=== PATIENT | male | born 1970 | race Caucasian/White ===

== ENCOUNTER 2017-06-18 00:22 | Outpatient (CLI) | payer MEDICARE, MEDICAID ==
[2017-06-18] MEDS: LACTATED RINGERS 1,000 ML IV ONE (19:09)
== END 2017-06-18 00:23 | disposition critical access hospital (66) ==
LOC: EMS 00:22
PROVIDERS: ATTEND Surgery
DX: K92.1 Melena (principal); R42 Dizziness and giddiness; R11.2 Nausea with vomiting, unspecified; R55 Syncope and collapse
CPT/HCPCS: A0425; A0427; J7120

== ENCOUNTER 2017-06-18 01:00 | Inpatient (IN) | payer MEDICARE, MEDICAID ==
[2017-06-18] MEDS ORDERED: PANTOPRAZOLE 40 MG VIAL IVP STA (01:09)
[2017-06-18] MEDS ORDERED: SODIUM CHLORIDE 0.9% 1,000 ML IV ONE (01:09)
[2017-06-18] MEDS ORDERED: ONDANSETRON 4 MG/2 ML VIAL IVP STA (01:09)
[2017-06-18] MEDS ORDERED: PANTOPRAZOLE 40 MG VIAL ONE (01:19)
[2017-06-18] MEDS ORDERED: ONDANSETRON 4 MG/2 ML VIAL ONE (01:19)
[2017-06-18 01:34] LABS: BASOPHILS # (AUTO) 0.1 10^3/uL (0.0-0.1); BASOPHILS % (AUTO) 0.7 %; EOSINOPHILS # (AUTO) 0.1 10^3/uL (0.0-0.7); EOSINOPHILS % (AUTO) 0.4 %; HCT - HEMATOCRIT 30.7 % (42.0-52.0); HGB - HEMOGLOBIN 10.3 g/dL (14.0-18.0); LYMPHOCYTES # (AUTO) 1.8 10^3/uL (1.5-3.5); LYMPHOCYTES % (AUTO) 11.5 %; MEAN CORPUSCULAR HEMOGLOBIN 30.4 pg (27.0-31.0); MEAN CORPUSCULAR HGB CONC 33.7 g/dL (32.0-36.0); MEAN CORPUSCULAR VOLUME 90.4 fL (80.0-94.0); MEAN PLATELET VOLUME 9.6 fL (7.4-11.4); MONOCYTES # (AUTO) 0.4 10^3/uL (0.0-1.0); MONOCYTES % (AUTO) 2.5 %; NEUTROPHILS # (AUTO) 13.2 10^3/uL (1.5-6.6); NEUTROPHILS % (AUTO) 84.9 %; RED CELL DISTRIBUTION WIDTH 12.8 % (12.0-15.0); UNCORRECTED WHITE BLOOD COUNT 15.6 x10^3/uL; WHITE BLOOD COUNT 15.6 x10^3/uL (4.8-10.8)
[2017-06-18 01:41] LABS: INR 1.2 (0.8-1.2); PT - PROTHROMBIN TIME 13.4 secs (9.9-12.6)
[2017-06-18 01:43] LABS: ALBUMIN/GLOBULIN RATIO 1.5 (1.0-2.2); BILIRUBIN,TOTAL 0.4 mg/dL (0.2-1.0); BUN - BLOOD UREA NITROGEN 26 mg/dL (6-20); CALCIUM 7.8 mg/dL (8.5-10.3); CARBON DIOXIDE - CO2 25 mmol/L (21-32); CHLORIDE 102 mmol/L (101-111); CREATININE 1.1 mg/dL (0.6-1.2); GFR - MDRD 72 (>89); GLUCOSE 180 mg/dL (70-100); LIPASE 32 U/L (22-51); POTASSIUM 4.2 mmol/L (3.5-5.0); SODIUM 135 mmol/L (135-145); TOTAL PROTEIN 5.9 g/dL (6.7-8.2)
[2017-06-18 01:49] LABS: PARTIAL THROMBOPLASTIN TIME 20.9 secs (24.9-33.3)
--- NOTE | 2017-06-18 01:57 | ED Physician Documentation ---
PD HPI GI BLEED - Stated complaint Stated Complaint: GI BLEED - Chief complaint Chief Complaint: Abd Pain - History obtained from History obtained from: Patient - History of Present Illness Timing - onset: Today Timing - details: Abrupt onset, Still present Associated symptoms: Vomiting, BRBPR, Maroon stool, Diarrhea. No: Coffee ground emesis, Hematemesis Worsened by: Eating, Position, Palpation Similar symptoms before: Has not had sx before Recently seen: Not recently seen - Additional information Additional information: Patient is a 46 year old male who lives at home with his mother who is on disability for chronic pancreatitis who is presenting to the emergency department for GI bleeding. According to patient and ems patient had multiple episodes of GI bleeding earlier today. patient states that he passed out twice. patient denies having these symptoms before. patient had no blood in his vomit and denies any alcohol abuse. Review of Systems Constitutional: reports: Chills. denies: Fever Eyes: denies: Loss of vision, Decreased vision Ears: denies: Ear pain, Drainage/discharge Nose: denies: Epistaxis Throat: reports: Reviewed and negative Cardiac: denies: Chest pain / pressure, Palpitations Respiratory: denies: Cough, Wheezing GI: reports: Abdominal Pain, Nausea, Vomiting, Diarrhea, Bloody / black stool. denies: Hematemesis : denies: Dysuria, Frequency, Hematuria Skin: denies: Rash, Lesions Musculoskeletal: denies: Neck pain, Back pain, Extremity pain, Joint swelling Neurologic: reports: Syncope. denies: Confused, Altered mental status Psychiatric: denies: Depressed, Suicidal Immunocompromised: denies: Immunocompromised PD PAST MEDICAL HISTORY - Past Medical History Past Medical History: Yes Cardiovascular: Hypertension Respiratory: None Neuro: None Endocrine/Autoimmune: None GI: Pancreatitis : None HEENT: None Psych: Depression, Anxiety Musculoskeletal: Chronic back pain Derm: None - Past Surgical History Past Surgical History: Yes General: Other - Present Medications Home Medications: Ambulatory Orders Medication Instructions Recorded Confirmed Amitriptyline [Elavil] 25 mg PO HS 06/18/17 06/18/17 Atenolol 50 mg PO DAILY 06/18/17 06/18/17 - Allergies Allergies/Adverse Reactions: Allergies Allergy/AdvReac Type Severity Reaction Status Date / Time diphenhydramine Allergy Rash Verified 12/14/15 07:25 - Social History Does the pt smoke?: No Smoking Status: Never smoker Does the pt drink ETOH?: No Does the pt have substance abuse?: No - Immunizations Immunizations are current?: Yes - POLST Patient has POLST: No PD ED PE NORMAL - Vitals Vital signs reviewed: Yes - General General: Alert and oriented X 3 - HEENT HEENT: Atraumatic, PERRL, Moist mucous membranes - Neck Neck: Supple, no meningeal sign - Cardiac Cardiac: RRR, No murmur - Respiratory Respiratory: No respiratory distress - Abdomen Abdomen: Soft - Extremities Extremities: No deformity, No tenderness to palpate - Neuro Neuro: Alert and oriented X 3, No motor deficit, No sensory deficit, Normal speech - Psych Psych: Normal mood, Normal affect PD ED PE EXPANDED - General General: Alert, Disheveled, poorly kept, Other (pale, ill appearing) - Eyes Eyes: Other (pale conjunctiva) - Abdomen Abdomen: Tender to palpation, Epigastric, Surgical scars - Derm Derm: Pale, Other (clammy) Results - Vitals Vitals: Vital Signs - 24 hr 06/18/17 06/18/17 06/18/17 01:06 01:24 01:44 Temperature 36.0 C L Heart Rate 110 H 100 102 H Respiratory 20 19 24 Rate Blood Pressure 110/54 L 104/85 H 102/74 O2 Saturation 99 96 95 06/18/17 06/18/17 06/18/17 01:58 02:20 02:30 Temperature Heart Rate 97 90 87 Respiratory 19 19 19 Rate Blood Pressure 109/89 H 101/68 O2 Saturation 100 100 100 Oxygen O2 Source Nasal cannula - Labs Labs: Laboratory Tests 06/18/17 06/18/17 06/18/17 01:23 01:23 01:23 WBC 15.6 H RBC 3.40 L Hgb 10.3 L Hct 30.7 L MCV 90.4 MCH 30.4 MCHC 33.7 RDW 12.8 Plt Count 281 MPV 9.6 Neut # 13.2 H Lymph # 1.8 [place] # 0.4 Eos # 0.1 Baso # 0.1 Absolute Nucleated RBC 0.00 Nucleated RBC % 0.0 PT 13.4 H INR 1.2 APTT 20.9 L Sodium 135 Potassium 4.2 Chloride 102 Carbon Dioxide 25 Anion Gap 8.0 BUN 26 H Creatinine 1.1 Estimated GFR (MDRD) 72 L Glucose 180 H Calcium 7.8 L Total Bilirubin 0.4 AST 15 ALT 15 Alkaline Phosphatase 32 L Troponin I Total Protein 5.9 L Albumin 3.5 Globulin 2.4 Albumin/Globulin Ratio 1.5 Lipase 32 Ethyl Alcohol < 5.0 Blood Type Blood Type Recheck Antibody Screen Crossmatch IS Only 06/18/17 06/18/17 06/18/17 01:23 01:23 01:23 WBC RBC Hgb Hct MCV MCH MCHC RDW Plt Count MPV Neut # Lymph # [place] # Eos # Baso # Absolute Nucleated RBC Nucleated RBC % PT INR APTT Sodium Potassium Chloride Carbon Dioxide Anion Gap BUN Creatinine Estimated GFR (MDRD) Glucose Calcium Total Bilirubin AST ALT Alkaline Phosphatase Troponin I < 0.04 Total Protein Albumin Globulin Albumin/Globulin Ratio Lipase Ethyl Alcohol Blood Type A POSITIVE Cancelled Blood Type Recheck Antibody Screen NEGATIVE Cancelled Crossmatch IS Only See Detail 06/18/17 01:53 WBC RBC Hgb Hct MCV MCH MCHC RDW Plt Count MPV Neut # Lymph # [place] # Eos # Baso # Absolute Nucleated RBC Nucleated RBC % PT INR APTT Sodium Potassium Chloride Carbon Dioxide Anion Gap BUN Creatinine Estimated GFR (MDRD) Glucose Calcium Total Bilirubin AST ALT Alkaline Phosphatase Troponin I Total Protein Albumin Globulin Albumin/Globulin Ratio Lipase Ethyl Alcohol Blood Type Blood Type Recheck A POSITIVE Antibody Screen Crossmatch IS Only - Rads (name of study) chest x-ray Radiology: Final report received (no acute abnormality) PD MEDICAL DECISION MAKING - ED course Complexity details: reviewed old records, reviewed results, re-evaluated patient , considered differential, d/w patient, d/w design center consultant ED course: Patient was seen and examined at bedside immediately. IV access was gained and labs were drawn. Fluids were started. Patient was started on protonix. Patient's hemoglobin was 10, but his baseline was 15. Patient was symptomatic and blood products were ordered. Surgeon insulation cutter and former, Dr. elizalde was contacted and he agreed to consult on the patient. Hospitalist was contacted and the case was discussed with her. It was decided that patient would be admitted for further evaluation and possible colonoscopy. Departure - Departure Disposition: [facility] DC/Xfer Clinical Impression: Lower GI bleed Condition: Critical
[2017-06-18] MEDS ORDERED: fentaNYL 100 MCG/2 ML VIAL IVP STA (02:04)
[2017-06-18] MEDS ORDERED: fentaNYL 100 MCG/2 ML VIAL ONE (02:12)
--- NOTE | 2017-06-18 02:34 | XRAY Preliminary Report ---
Exam: XR Chest 1 View IMPRESSION: Normal single view chest. [facility] SITE ID: [id number]
--- NOTE | 2017-06-18 02:37 | XRAY Report ---
EXAM: CHEST RADIOGRAPHY EXAM DATE: 06/18/2017 02:14 AM. CLINICAL HISTORY: Syncope twice tonight, bloody diarrhea, abdominal pain. COMPARISON: None. TECHNIQUE: 1 view. FINDINGS: Lungs/Pleura: No focal opacities evident. No pleural effusion. No pneumothorax. Mediastinum: Within exam limitations, the cardiomediastinal contour is normal. Other: No free intraperitoneal gas. IMPRESSION: Normal single view chest. [facility] Referring Provider Line: [phone] SITE ID: [id number]
[2017-06-18] MEDS ORDERED: MORPHINE 2 MG/ML SYRINGE IVP PRN (04:08)
[2017-06-18] MEDS: SODIUM CHLORIDE FLUSH 0.9% 10 ML SYRINGE IVP PRN ×2 (04:45→19:56)
[2017-06-18] MEDS: SODIUM CHLORIDE 0.9% 1,000 ML IV SCH ×3 (04:45→21:54)
[2017-06-18] MEDS: ONDANSETRON 4 MG/2 ML VIAL IVP SCH ×5 (04:53→21:33)
[2017-06-18] MEDS: SODIUM CHLORIDE FLUSH 0.9% 10 ML SYRINGE IVP SCH ×3 (05:38→21:33)
[2017-06-18 05:50] LABS: BASOPHILS % (AUTO) 0.4 %; EOSINOPHILS % (AUTO) 0.2 %; HCT - HEMATOCRIT 32.2 % (42.0-52.0); LYMPHOCYTES # (AUTO) 2.1 10^3/uL (1.5-3.5); LYMPHOCYTES % (AUTO) 15.4 %; MEAN CORPUSCULAR HGB CONC 34.3 g/dL (32.0-36.0); MEAN CORPUSCULAR VOLUME 90.5 fL (80.0-94.0); MEAN PLATELET VOLUME 9.8 fL (7.4-11.4); MONOCYTES # (AUTO) 0.5 10^3/uL (0.0-1.0); MONOCYTES % (AUTO) 3.6 %; NEUTROPHILS # (AUTO) 10.7 10^3/uL (1.5-6.6); NEUTROPHILS % (AUTO) 80.4 %; RED BLOOD COUNT 3.55 10^6/uL (4.70-6.10); RED CELL DISTRIBUTION WIDTH 12.8 % (12.0-15.0); UNCORRECTED WHITE BLOOD COUNT 13.3 x10^3/uL; WHITE BLOOD COUNT 13.3 x10^3/uL (4.8-10.8)
[2017-06-18 05:56] LABS: INR 1.2 (0.8-1.2); PT - PROTHROMBIN TIME 13.5 secs (9.9-12.6)
[2017-06-18 06:02] LABS: ALBUMIN/GLOBULIN RATIO 1.4 (1.0-2.2); BILIRUBIN,TOTAL 1.3 mg/dL (0.2-1.0); CALCIUM 7.7 mg/dL (8.5-10.3); CREATININE 0.9 mg/dL (0.6-1.2); POTASSIUM 4.4 mmol/L (3.5-5.0); TOTAL PROTEIN 5.5 g/dL (6.7-8.2)
[2017-06-18 06:03] LABS: PARTIAL THROMBOPLASTIN TIME 29.4 secs (24.9-33.3)
[2017-06-18 06:33] LABS: CALCIUM, IONIZED 1.04 mmol/L (1.15-1.33); VBG PH 7.407 (7.31-7.41)
--- NOTE | 2017-06-18 06:35 | HISTORY & PHYSICAL EXAMINATION ---
DATE OF ADMISSION: 06/18/2017 TIME: 5 a.m. CODE STATUS: FULL CODE. PRIMARY CARE PROVIDER: Gavino Raymundo. EXAM LIMITATIONS: None. SOURCE OF INFORMATION: The patient. CHIEF COMPLAINT: Abdominal pain with bloody diarrhea. DOES THE PATIENT HAVE ADVANCED DIRECTIVES: No. HISTORY OF PRESENT ILLNESS: The patient, a 46-year-old white male, began becoming weak at 6:30 p.m. He developed right lower quadrant pain with bloody diarrhea. He fainted twice before coming into the ER. DRUG ALLERGIES: BENADRYL, FOR WHICH HE GETS A RASH. HOME MEDICATIONS 1. Amitriptyline 25 mg 1 tab p.o. at bedtime. 2. Atenolol 50 mg 1 tab p.o. every day. 3. Vicodin. PAST MEDICAL HISTORY: Chronic pancreatitis, depression/anxiety, hypertension, hyperlipidemia. He has a history of abdominal trauma at the age of 9, falling from a roof and landing on rebar resulting in trauma to multiple organs. He had an open abdominal exploratory operation after the trauma. He also has an artificial right tear duct. FAMILY HISTORY: Mother, breast cancer. Paternal grandfather, colon cancer. Father, arrhythmia and coronary artery disease. SOCIAL HISTORY: He is single. He has no children. He is disabled. He smoked 1 pack per day for 20 years and quit 5 years ago. He has abused alcohol in the past and quit 3 years ago and he uses marijuana. He lives with his father and has 3 brothers. REVIEW OF SYSTEMS RESPIRATORY: No productive cough, no shortness of breath. HEART: No palpitations. No chest pain. ABDOMEN: Right lower quadrant pain and bloody diarrhea. URINARY SYSTEM: No frequency, no burning urine. HEAD: No headaches. EYES: No blurred vision. EARS: No ear pain. NOSE: No runny nose. THROAT: No redness or pain. MUSCULOSKELETAL: Proximal muscle weakness. JOINTS: No joint pain. NEUROLOGIC: No aphasias, no limb weakness. WEAKNESS AND FATIGUE: Yes. FEVER: No. PHYSICAL EXAMINATION VITAL SIGNS: Temperature of 36 degrees, pulse 110, a respiratory rate of 20, blood pressure of 110/54, and O2 saturation of 100% on 2 liters nasal cannula. GENERAL: Pallor, alert, and cooperative. HEENT: Head is atraumatic, normocephalic. Eyes are PERRLA, EOMI. NECK: Supple. No JVD, no bruits, no thyroid enlargement. No adenopathy. HEART: Tachycardia. LUNGS: Clear to auscultation. ABDOMEN: Positive for bowel sounds, soft. No rebound, no guarding. Right lower quadrant pain. EXTREMITIES: Warm. No edema, +2 pedal pulses. He has 5/5 muscle strength in upper and lower extremities. NEUROLOGIC: He is oriented x3. Follows commands. Cranial nerves 2-12 are intact. LABORATORY DATA: Sodium is 135, potassium is 4.2, chloride 102, bicarbonate is 25, BUN is 26, creatinine is 1.1, glucose is 180. White blood cells are 15.6, hemoglobin is 10.3, hematocrit 30.7, platelets are 281,000. Lipase is 32 and glomerular filtration rate is 72, calcium 7.8. AST is 15, ALT is 15, alkaline phosphatase is 32. ASSESSMENT AND PLAN: Gastrointestinal bleeding. He is in the ICU on telemetry. He has been transfused 1 unit of packed red blood cells in the ER. He will be getting hemograms. He has 2 units of packed red blood cells on hold. He will have Dr. Werner Silva consult. He will be on telemetry. He is getting IV 0.9 normal saline at 100 mL per hour and he is on IV Protonix at 40 mg every day. For DVT prophylaxis, he has SCDs. For his suspected infection, he will be on IV ceftriaxone. His anticipated length of stay is 4 days. His anxiety and depression will be treated with Elavil. His hypertension will be treated with atenolol and his chronic pancreatic pain and abdominal pain will be treated with IV morphine sulfate. JOB #: [id number] EXT JOB #:[id number] JOBY
[2017-06-18] MEDS ORDERED: MORPHINE 2 MG/ML SYRINGE IVP ONE (06:40)
[2017-06-18] MEDS: PANTOPRAZOLE 40 MG VIAL IVP SCH (06:58)
[2017-06-18 07:07] LABS: MAGNESIUM 1.8 mg/dL (1.7-2.8); PHOSPHORUS 3.3 mg/dL (2.5-4.6)
[2017-06-18] MEDS: ATENOLOL 25 MG TABLET PO SCH ×2 (09:01→09:04)
[2017-06-18] MEDS: cefTRIAXone 1 GM in SODIUM CHLORIDE 0.9% MINIBAG 100 ML IV SCH (09:02)
[2017-06-18] MEDS ORDERED: PEG 3350/NA SULF,BICARB,CL/KCL 4,000 ML BOTTLE PO ONE (09:46)
[2017-06-18] MEDS ORDERED: PEG 3350/NA SULF,BICARB,CL/KCL 4,000 ML BOTTLE PO SCH (10:00)
[2017-06-18] MEDS: MORPHINE 2 MG/ML SYRINGE IVP PRN ×5 (10:26→22:50)
[2017-06-18 10:29] LABS: BASOPHILS # (AUTO) 0.1 10^3/uL (0.0-0.1); BASOPHILS % (AUTO) 0.6 %; EOSINOPHILS # (AUTO) 0.1 10^3/uL (0.0-0.7); EOSINOPHILS % (AUTO) 0.4 %; HCT - HEMATOCRIT 28.5 % (42.0-52.0); HGB - HEMOGLOBIN 9.7 g/dL (14.0-18.0); MEAN CORPUSCULAR HEMOGLOBIN 30.4 pg (27.0-31.0); MEAN CORPUSCULAR HGB CONC 34.1 g/dL (32.0-36.0); MEAN CORPUSCULAR VOLUME 89.2 fL (80.0-94.0); MEAN PLATELET VOLUME 9.3 fL (7.4-11.4); MONOCYTES # (AUTO) 0.6 10^3/uL (0.0-1.0); NEUTROPHILS # (AUTO) 8.8 10^3/uL (1.5-6.6); RED BLOOD COUNT 3.19 10^6/uL (4.70-6.10); RED CELL DISTRIBUTION WIDTH 12.4 % (12.0-15.0); UNCORRECTED WHITE BLOOD COUNT 12.5 x10^3/uL; WHITE BLOOD COUNT 12.5 x10^3/uL (4.8-10.8)
[2017-06-18] MEDS: CALCIUM CITRATE 250 MG TABLET PO SCH ×3 (12:55→21:33)
[2017-06-18 14:27] LABS: HCT - HEMATOCRIT 26.1 % (42.0-52.0); HGB - HEMOGLOBIN 8.9 g/dL (14.0-18.0); MEAN CORPUSCULAR HEMOGLOBIN 30.4 pg (27.0-31.0); MEAN CORPUSCULAR HGB CONC 34.1 g/dL (32.0-36.0); MEAN CORPUSCULAR VOLUME 89.3 fL (80.0-94.0); MEAN PLATELET VOLUME 9.2 fL (7.4-11.4); RED BLOOD COUNT 2.93 10^6/uL (4.70-6.10); RED CELL DISTRIBUTION WIDTH 12.7 % (12.0-15.0); WHITE BLOOD COUNT 11.9 x10^3/uL (4.8-10.8)
[2017-06-18 16:36] LABS: BASOPHILS # (AUTO) 0.1 10^3/uL (0.0-0.1); BASOPHILS % (AUTO) 0.6 %; EOSINOPHILS # (AUTO) 0.2 10^3/uL (0.0-0.7); EOSINOPHILS % (AUTO) 1.3 %; HCT - HEMATOCRIT 26.8 % (42.0-52.0); HGB - HEMOGLOBIN 9.2 g/dL (14.0-18.0); LYMPHOCYTES # (AUTO) 3.1 10^3/uL (1.5-3.5); LYMPHOCYTES % (AUTO) 26.3 %; MEAN CORPUSCULAR HEMOGLOBIN 31.1 pg (27.0-31.0); MEAN CORPUSCULAR HGB CONC 34.1 g/dL (32.0-36.0); MEAN PLATELET VOLUME 9.6 fL (7.4-11.4); MONOCYTES # (AUTO) 0.6 10^3/uL (0.0-1.0); MONOCYTES % (AUTO) 5.3 %; NEUTROPHILS # (AUTO) 7.9 10^3/uL (1.5-6.6); NEUTROPHILS % (AUTO) 66.5 %; RED BLOOD COUNT 2.95 10^6/uL (4.70-6.10); UNCORRECTED WHITE BLOOD COUNT 11.9 x10^3/uL; WHITE BLOOD COUNT 11.9 x10^3/uL (4.8-10.8)
[2017-06-18] MEDS ORDERED: PROPOFOL 200 MG/20 ML VIAL IVP ONE (19:30)
--- NOTE | 2017-06-18 19:59 | PROVIDER PROGRESS NOTE ---
Subjective - Prog Note Date Prog Note Date: 06/18/17 Prog Note Time: 19:57 - Subjective Subjective: he has 2 bowel movements that were dark but by 3rd nml brown color. dropped hgb but stayed stable. was orthostatic today but with IVF BP normalized. colonscopy is compeltely clear for source of bleeding. He may need an EGD but the patient decline one for today. He has N/V and wants to wait. Current Medications - Current Medications Current Medications: Active Medications Amitriptyline HCl (Elavil) 25 mg PO HS [facility] Atenolol (Tenormin) 50 mg PO DAILY [facility] Last Admin: 06/18/17 09:04 Dose: Not Given Calcium Citrate () 500 mg PO QID [facility] PRN Reason: Protocol Stop: 06/19/17 09:01 Last Admin: 06/18/17 15:48 Dose: 500 mg Sodium Chloride (Normal Saline 0.9%) 1,000 mls @ 100 mls/hr IV .Q10H [facility] Last Admin: 06/18/17 15:47 Dose: 100 mls/hr Ceftriaxone Sodium 1 gm/ (Sodium Chloride) 100 mls @ 200 mls/hr IV DAILY [facility] Last Infusion: 06/18/17 10:29 Dose: Infused Morphine Sulfate (Morphine) 2 mg IVP Q1HR PRN PRN Reason: Abdominal Pain Last Admin: 06/18/17 19:56 Dose: 2 mg Ondansetron HCl (Zofran Inj) 4 mg IVP Q4H [facility] Last Admin: 06/18/17 15:48 Dose: 4 mg Pantoprazole Sodium (Protonix) 40 mg IVP QDAC [facility] Last Admin: 06/18/17 06:58 Dose: 40 mg Sodium Chloride (Normal Saline Flush 0.9%) 10 ml IVP Q8HR [facility] Last Admin: 06/18/17 12:55 Dose: 10 ml Sodium Chloride (Normal Saline Flush 0.9%) 10 ml IVP PRN PRN PRN Reason: NEEDED PER PROVIDER ORDERS Last Admin: 06/18/17 19:56 Dose: 10 ml Amitriptyline [Elavil] 50 mg PO HS 06/18/17 Atenolol 50 mg PO DAILY 06/18/17 Hydrocodone/Acetaminophen [Hydrocodon-Acetaminoph 7.5-325] 1 tab PO Q6H PRN 06/25 Objective - Vital Signs/Intake & Output Reviewed Vital Signs: Yes Vital Signs: Vital Signs x48h Temp Pulse Resp BP BP Pulse Ox 06/18/17 19:51 36.9 C 81 13 120/83 H 99 06/18/17 18:40 85 14 130/80 100 06/18/17 17:53 82 12 124/80 100 06/18/17 17:07 86 13 129/96 H 100 06/18/17 17:02 125/78 06/18/17 16:00 77 18 132/89 H 100 06/18/17 15:18 76 17 132/89 H 100 06/18/17 14:00 90 20 108/84 H 96 06/18/17 13:00 36.6 C 90 17 115/81 H 99 06/18/17 12:00 107 H 16 133/88 H 100 Intake & Output: Intake & Output 06/15/17 06/16/17 06/17/17 06/18/17 23:59 23:59 23:59 23:59 Intake Total 6670 Output Total 3250 Balance 3420 - Objective General Appearance: positive: No acute distress, Alert Eyes Bilateral: positive: PERRL ENT: positive: Pharynx nml Neck: positive: No JVD. negative: Stiff neck Respiratory: positive: Chest non-tender. negative: Wheezes, Rales, Rhonchi Cardiovascular: positive: Regular rate & rhythm, Other (RN documents impressive orthostatic hypotension and he has near syncope when he stood this am. Resolved by late afternoon.). negative: Systolic murmur, Gallop/S4, Friction rub Abdomen: positive: Nml bowel sounds, Tenderness (mild). negative: Guarding, Rebound Rectal: positive: Black stool Skin: positive: Warm, Dry, Pallor Extremities: positive: Full ROM, No pedal edema Neurologic/Psychiatric: positive: Oriented x3, CN's nml (2-12), Motor nml - Lab Results Fish Bones: 06/18/17 16:20 06/18/17 05:26 Other Labs: Lab Results x24hrs 06/18/17 06/18/17 06/18/17 Range/Units 16:20 14:20 10:23 WBC 11.9 H 11.9 H 12.5 H (4.8-10.8) x10^3/uL RBC 2.95 L 2.93 L 3.19 L (4.70-6.10) 10^6/uL Hgb 9.2 L 8.9 L 9.7 L (14.0-18.0) g/dL Hct 26.8 L 26.1 L 28.5 L (42.0-52.0) % MCV 91.0 89.3 89.2 (80.0-94.0) fL MCH 31.1 H 30.4 30.4 (27.0-31.0) pg MCHC 34.1 34.1 34.1 (32.0-36.0) g/dL RDW 13.0 12.7 12.4 (12.0-15.0) % Plt Count 187 190 200 (130-450) 10^3/uL MPV 9.6 9.2 9.3 (7.4-11.4) fL Neut # 7.9 H 8.8 H (1.5-6.6) 10^3/uL Lymph # 3.1 3.0 (1.5-3.5) 10^3/uL Pender # 0.6 0.6 (0.0-1.0) 10^3/uL Eos # 0.2 0.1 (0.0-0.7) 10^3/uL Baso # 0.1 0.1 (0.0-0.1) 10^3/uL Absolute Nucleated RBC 0.00 0.00 x10^3/uL Nucleated RBC % 0.0 0.0 /100WBC PT (9.9-12.6) secs INR (0.8-1.2) APTT (24.9-33.3) secs VBG pH (7.31-7.41) Ionized Calcium (1.15-1.33) mmol/L Sodium (135-145) mmol/L Potassium (3.5-5.0) mmol/L Chloride (101-111) mmol/L Carbon Dioxide (21-32) mmol/L Anion Gap (6-13) BUN (6-20) mg/dL Creatinine (0.6-1.2) mg/dL Estimated GFR (MDRD) (>89) Glucose (70-100) mg/dL Calcium (8.5-10.3) mg/dL Phosphorus (2.5-4.6) mg/dL Magnesium (1.7-2.8) mg/dL Total Bilirubin (0.2-1.0) mg/dL AST (10-42) IU/L ALT (10-60) IU/L Alkaline Phosphatase (42-121) IU/L Total Protein (6.7-8.2) g/dL Albumin (3.2-5.5) g/dL Globulin (2.1-4.2) g/dL Albumin/Globulin Ratio (1.0-2.2) 06/18/17 06/18/17 06/18/17 Range/Units 06:24 05:26 05:26 WBC 13.3 H (4.8-10.8) x10^3/uL RBC 3.55 L (4.70-6.10) 10^6/uL Hgb 11.0 L (14.0-18.0) g/dL Hct 32.2 L (42.0-52.0) % MCV 90.5 (80.0-94.0) fL MCH 31.0 (27.0-31.0) pg MCHC 34.3 (32.0-36.0) g/dL RDW 12.8 (12.0-15.0) % Plt Count 221 (130-450) 10^3/uL MPV 9.8 (7.4-11.4) fL Neut # 10.7 H (1.5-6.6) 10^3/uL Lymph # 2.1 (1.5-3.5) 10^3/uL [place] # 0.5 (0.0-1.0) 10^3/uL Eos # 0.0 (0.0-0.7) 10^3/uL Baso # 0.0 (0.0-0.1) 10^3/uL Absolute Nucleated RBC 0.00 x10^3/uL Nucleated RBC % 0.0 /100WBC PT (9.9-12.6) secs INR (0.8-1.2) APTT (24.9-33.3) secs VBG pH 7.407 (7.31-7.41) Ionized Calcium 1.04 L (1.15-1.33) mmol/L Sodium (135-145) mmol/L Potassium (3.5-5.0) mmol/L Chloride (101-111) mmol/L Carbon Dioxide (21-32) mmol/L Anion Gap (6-13) BUN (6-20) mg/dL Creatinine (0.6-1.2) mg/dL Estimated GFR (MDRD) (>89) Glucose (70-100) mg/dL Calcium (8.5-10.3) mg/dL Phosphorus 3.3 (2.5-4.6) mg/dL Magnesium 1.8 (1.7-2.8) mg/dL Total Bilirubin (0.2-1.0) mg/dL AST (10-42) IU/L ALT (10-60) IU/L Alkaline Phosphatase (42-121) IU/L Total Protein (6.7-8.2) g/dL Albumin (3.2-5.5) g/dL Globulin (2.1-4.2) g/dL Albumin/Globulin Ratio (1.0-2.2) 06/18/17 06/18/17 Range/Units 05:26 05:26 WBC (4.8-10.8) x10^3/uL RBC (4.70-6.10) 10^6/uL Hgb (14.0-18.0) g/dL Hct (42.0-52.0) % MCV (80.0-94.0) fL MCH (27.0-31.0) pg MCHC (32.0-36.0) g/dL RDW (12.0-15.0) % Plt Count (130-450) 10^3/uL MPV (7.4-11.4) fL Neut # (1.5-6.6) 10^3/uL Lymph # (1.5-3.5) 10^3/uL [place] # (0.0-1.0) 10^3/uL Eos # (0.0-0.7) 10^3/uL Baso # (0.0-0.1) 10^3/uL Absolute Nucleated RBC x10^3/uL Nucleated RBC % /100WBC PT 13.5 H (9.9-12.6) secs INR 1.2 (0.8-1.2) APTT 29.4 (24.9-33.3) secs VBG pH (7.31-7.41) Ionized Calcium (1.15-1.33) mmol/L Sodium 137 (135-145) mmol/L Potassium 4.4 (3.5-5.0) mmol/L Chloride 106 (101-111) mmol/L Carbon Dioxide 24 (21-32) mmol/L Anion Gap 7.0 (6-13) BUN 22 H (6-20) mg/dL Creatinine 0.9 (0.6-1.2) mg/dL Estimated GFR (MDRD) 91 (>89) Glucose 124 H (70-100) mg/dL Calcium 7.7 L (8.5-10.3) mg/dL Phosphorus (2.5-4.6) mg/dL Magnesium (1.7-2.8) mg/dL Total Bilirubin 1.3 H (0.2-1.0) mg/dL AST 16 (10-42) IU/L ALT 14 (10-60) IU/L Alkaline Phosphatase 30 L (42-121) IU/L Total Protein 5.5 L (6.7-8.2) g/dL Albumin 3.2 (3.2-5.5) g/dL Globulin 2.3 (2.1-4.2) g/dL Albumin/Globulin Ratio 1.4 (1.0-2.2) Assessment/Plan - Problem List (1) Melena Impression: appears to be having a GI bleed and now not lower. had impressive near syncope and low BP and now better with IVF. didn't need blood transfusion. start PPI. If stable Hgb in am can go and will see Dr. Silva in clinic to get that EGD. avoid ASA or any NSAID until seen.
[2017-06-18] MEDS: AMITRIPTYLINE 25 MG TABLET PO SCH (21:33)
[2017-06-18 22:37] LABS: BASOPHILS # (AUTO) 0.1 10^3/uL (0.0-0.1); BASOPHILS % (AUTO) 1.4 %; EOSINOPHILS # (AUTO) 0.1 10^3/uL (0.0-0.7); EOSINOPHILS % (AUTO) 1.8 %; HCT - HEMATOCRIT 23.1 % (42.0-52.0); HGB - HEMOGLOBIN 7.8 g/dL (14.0-18.0); LYMPHOCYTES # (AUTO) 2.4 10^3/uL (1.5-3.5); LYMPHOCYTES % (AUTO) 29.7 %; MEAN CORPUSCULAR HEMOGLOBIN 31.1 pg (27.0-31.0); MEAN CORPUSCULAR HGB CONC 33.8 g/dL (32.0-36.0); MEAN PLATELET VOLUME 9.4 fL (7.4-11.4); MONOCYTES # (AUTO) 0.3 10^3/uL (0.0-1.0); MONOCYTES % (AUTO) 3.5 %; NEUTROPHILS % (AUTO) 63.6 %; RED BLOOD COUNT 2.51 10^6/uL (4.70-6.10); UNCORRECTED WHITE BLOOD COUNT 7.9 x10^3/uL; WHITE BLOOD COUNT 7.9 x10^3/uL (4.8-10.8)
[2017-06-19] MEDS: ONDANSETRON 4 MG/2 ML VIAL IVP SCH ×6 (01:20→20:43)
--- NOTE | 2017-06-19 01:43 | CONSULTATION NOTE ---
DATE OF CONSULTATION: 06/18/2017 00:00:00 REQUESTING PROVIDER: Dr. Callahan. DATE OF ADMISSION: 06/18/2017 I was called in consultation first by Dr. Callahan in the emergency room and then by Dr. Mccollum to e valuate this 46-year-old white male for a GI bleed. HISTORY OF PRESENT ILLNESS: The patient was evaluated in room 2303 (the Intensive Care Unit at [facility]). He is a 46-year-old white male with a history of chronic pain after having been impaled on rebar afte r he fell from a roof. To hear the patient tell it he had injuries to multiple organs in his body and ended up with a liver resection and repair to numerous other abdominal organs. Additionally, he has had chronic pancreatitis and states that he has chronic pain as a results. For this disease he stated he had bright red blood per rectum to point where he fainted twice prior to coming to the emergency department. He has been lightheaded. He has no new abdominal pain with this blood. He has no weight l oss. The patient states that there is no treatment for his abdominal pain, but I corrected and stated that there was a possibility of sympathectomy and he kind of laughed and said yes the other doctors have told him this much as well, but he has been reticent to try. I told there is nothing lost in try ing this. In fact, if it does not work for the first time I would try it again to see if it works the second time. At any rate, with abdominal pain and the bloody diarrhea he stated he had nausea and vo miting. He states the vomiting was quite a bit and never did not notice any blood in the vomitus. ALLERGIES: BENADRYL, BUT THERE IS ONLY IF IT IS TAKEN I BELIEVE IV. MEDICATIONS: 1. Amitriptyline 25 mg 1 Tab p.o. at bedtime. 2. Atenolol 50 mg tablet every day as well. 3. Vicodin every 4-6 hours as needed for pain. PAST MEDICAL AND SURGICAL HISTORY: 1. Chronic pancreatitis. 2. Depression and anxiety. 3. Hypertension. 4. Dyslipidemia. 5. Abdominal trauma with partial hepatectomy and repair to multiple abdominal organs after being impa led on rebar falling off a roof. 6. Additionally has artificial right tear duct. 7. He has chronic pain. SOCIAL HISTORY: He was a smoker, 1 pack per day for 20 years, quitting 5 years ago. He states he was alcoholic, quitting 3 years ago. He uses marijuana. He lives with his father, has 3 brothers. He is s pamella, no children. FAMILY HISTORY: Mother with breast cancer. Paternal grandfather with colon cancer. Father with arrhyt hmia and coronary artery disease. There is no family history of inflammatory bowel disease. REVIEW OF SYSTEMS: GENERAL: He denies any weight loss. HEENT: He denies any increase or decrease in his vision and/or hearing. NECK: He denies difficulty swallowing or speaking. CHEST: He denies productive cough or shortness breath. CARDIAC: He denies chest pain or pressure. ABDOMEN: He has had chronic abdominal pain and chronic pancreatitis. GENITOURINARY: There has been no frequency or no dysuria. EXTREMITIES: No significant musculoskeletal pain. NEUROLOGIC: No focal or localizing symptoms. PHYSICAL EXAMINATION: GENERAL: This is a 46-year-old, very talkative white male who was evaluated in bed at [facility]'s ICU. He is alert and oriented to person, place and time. His mood and affect appear appropriate, although his speech is slightly pressured. As soon as I walked in the room he wanted to ask me about whether or not he can drink fluids and whether or not he takes pain medications. VITAL SIGNS: Please refer to nurse's note. HEENT: He is normocephalic, atraumatic. Sclerae are noninjected, nonicteric. His mucous membranes are pink and slightly dry. NECK: Supple without mass or bruits. HEART: Regular rate and rhythm without rub, murmur or gallop. LUNGS: Clear to auscultation bilaterally anterolaterally. ABDOMEN: As soon as I touch his abdomen he tensed up. I explained to him that I was not about to hurt him. He has normoactive bowel sounds. He has no peritoneal findings. He has voluntary guarding in th e right side. He has a midline incision that is well healed without hernia. GENITOURINARY: Deferred. RECTAL: Deferred. EXTREMITIES: Warm and he moves all fours without difficulty and without focal deficit. LABORATORY: Abnormalities on his labs in his CMP include a BUN of 26, GFR of 72, glucose 180, calcium of 7.8, alkaline phosphatase of 32 and total protein of 5.9 Abnormalities on his coagulation studies include a PT of 13.4 and APTT of 20.9. Abnormalities on his CBC included a white blood cell count of 15.6, RBCs of 3.4, hemoglobin of 10.3, hematocrit of 30.7 and neutrophils of 13.2. Please note that he had received blood at this point in time. Chest x-ray from earlier today was read by Dr. Blackman as normal single view of his chest. ASSESSMENT: A 46-year-old male with a history of blood per rectum who tells me that he has had a prev ious colonoscopy approximately 2 years ago, but that this loss of blood has made him pass out and he feels like he may have passed out again. PLAN: Colonoscopy with possible biopsies and/or polypectomies. The indications, procedure, alternativ es and possible complications including, but not limited to perforation requiring operative repair, b leeding with all it's risks including transfusion, and were fully explained to the patient and all questions were answered. I offered to perform an EGD at the same time, the patient declined stati ng that he has vomited multiple times and there was no blood there. The plan is to prep his colon and perform the colonoscopy thereafter. All in all, approximately 40 minutes of [id number] time was sp ent with the patient in obtaining consent and verbal and written consent was obtained. JOB #: [id number] EXT JOB #:[id number]
[2017-06-19] MEDS: MORPHINE 2 MG/ML SYRINGE IVP PRN ×13 (02:56→21:56)
[2017-06-19] MEDS: SODIUM CHLORIDE FLUSH 0.9% 10 ML SYRINGE IVP SCH ×3 (05:52→20:43)
[2017-06-19] MEDS: PANTOPRAZOLE 40 MG VIAL IVP SCH (06:32)
[2017-06-19 06:50] LABS: BASOPHILS # (AUTO) 0.1 10^3/uL (0.0-0.1); EOSINOPHILS # (AUTO) 0.2 10^3/uL (0.0-0.7); HCT - HEMATOCRIT 21.7 % (42.0-52.0); HGB - HEMOGLOBIN 7.5 g/dL (14.0-18.0); LYMPHOCYTES # (AUTO) 1.9 10^3/uL (1.5-3.5); LYMPHOCYTES % (AUTO) 31.2 %; MEAN CORPUSCULAR HEMOGLOBIN 31.6 pg (27.0-31.0); MEAN CORPUSCULAR HGB CONC 34.6 g/dL (32.0-36.0); MEAN CORPUSCULAR VOLUME 91.3 fL (80.0-94.0); MEAN PLATELET VOLUME 9.4 fL (7.4-11.4); MONOCYTES # (AUTO) 0.3 10^3/uL (0.0-1.0); MONOCYTES % (AUTO) 5.5 %; NEUTROPHILS # (AUTO) 3.7 10^3/uL (1.5-6.6); NEUTROPHILS % (AUTO) 59.3 %; RED BLOOD COUNT 2.38 10^6/uL (4.70-6.10); RED CELL DISTRIBUTION WIDTH 12.8 % (12.0-15.0); UNCORRECTED WHITE BLOOD COUNT 6.2 x10^3/uL; WHITE BLOOD COUNT 6.2 x10^3/uL (4.8-10.8)
[2017-06-19 07:03] LABS: ALBUMIN/GLOBULIN RATIO 1.7 (1.0-2.2); BILIRUBIN,TOTAL 0.4 mg/dL (0.2-1.0); BUN - BLOOD UREA NITROGEN 14 mg/dL (6-20); CARBON DIOXIDE - CO2 27 mmol/L (21-32); CHLORIDE 106 mmol/L (101-111); CREATININE 0.9 mg/dL (0.6-1.2); GFR - MDRD 91 (>89); GLUCOSE 120 mg/dL (70-100); POTASSIUM 4.1 mmol/L (3.5-5.0); SODIUM 138 mmol/L (135-145); TOTAL PROTEIN 4.9 g/dL (6.7-8.2)
[2017-06-19 07:05] LABS: MAGNESIUM 1.8 mg/dL (1.7-2.8); PHOSPHORUS 1.9 mg/dL (2.5-4.6)
[2017-06-19 07:06] LABS: CALCIUM, IONIZED 1.1 mmol/L (1.15-1.33); VBG PH 7.423 (7.31-7.41)
[2017-06-19] MEDS: SODIUM CHLORIDE 0.9% 1,000 ML IV SCH ×2 (07:19→20:43)
[2017-06-19] MEDS ORDERED: ACETAMINOPHEN 325 MG TABLET PO SCH (08:00)
[2017-06-19] MEDS ORDERED: CALCIUM GLUCONATE 1,000 MG in SODIUM CHLORIDE 0.9% 50 ML IV ONE (08:00)
[2017-06-19] MEDS ORDERED: SODIUM CHLORIDE 0.9% 100ML 100 ML IV ONE (08:15)
[2017-06-19] MEDS: ATENOLOL 25 MG TABLET PO SCH (08:25)
[2017-06-19] MEDS: NEUTRA-PHOS 250 MG TABLET PO SCH ×2 (08:25→10:29)
[2017-06-19] MEDS: CALCIUM CITRATE 250 MG TABLET PO SCH (08:29)
[2017-06-19 08:43] LABS: BILIRUBIN,URINE NEGATIVE (NEGATIVE)
[2017-06-19 08:59] LABS: UR CULTURE IF IND NOT INDICATED; WBC,URINE 0-3 /HPF (0-3)
[2017-06-19] MEDS: cefTRIAXone 1 GM in SODIUM CHLORIDE 0.9% MINIBAG 100 ML IV SCH (09:17)
--- NOTE | 2017-06-19 10:37 | PROVIDER PROGRESS NOTE ---
Subjective - Prog Note Date Prog Note Date: 06/19/17 - Subjective Pt reports feeling: Improved (The patient states that he is feeling better but wants to know the origin of the GI bleed before going home. He would also like to have it treated.) Current Medications - Current Medications Current Medications: Active Medications Acetaminophen (Tylenol) 650 mg PO ONCE [place] Stop: 06/19/17 14:00 Last Admin: 06/19/17 08:58 Dose: 650 mg Amitriptyline HCl (Elavil) 25 mg PO HS [place] Last Admin: 06/18/17 21:33 Dose: 25 mg Atenolol (Tenormin) 50 mg PO DAILY [facility] Last Admin: 06/19/17 08:25 Dose: 50 mg Sodium Chloride (Normal Saline 0.9%) 1,000 mls @ 100 mls/hr IV .Q10H [facility] Last Infusion: 06/19/17 08:18 Dose: 0 mls/hr Ceftriaxone Sodium 1 gm/ (Sodium Chloride) 100 mls @ 200 mls/hr IV DAILY [facility] Last Admin: 06/19/17 09:17 Dose: 200 mls/hr Morphine Sulfate (Morphine) 2 mg IVP Q1HR PRN PRN Reason: Abdominal Pain Last Admin: 06/19/17 10:27 Dose: 2 mg Ondansetron HCl (Zofran Inj) 4 mg IVP Q4H [facility] Last Admin: 06/19/17 08:32 Dose: 4 mg Pantoprazole Sodium (Protonix) 40 mg IVP QDAC [facility] Last Admin: 06/19/17 06:32 Dose: 40 mg Sodium Chloride (Normal Saline Flush 0.9%) 10 ml IVP Q8HR [place] Last Admin: 06/19/17 05:52 Dose: 10 ml Sodium Chloride (Normal Saline Flush 0.9%) 10 ml IVP PRN PRN PRN Reason: NEEDED PER PROVIDER ORDERS Last Admin: 06/18/17 19:56 Dose: 10 ml Objective - Vital Signs/Intake & Output Vital Signs: Vital Signs x48h Temp Pulse Resp BP Pulse Ox 06/19/17 10:15 36.8 C 66 15 117/83 H 97 06/19/17 10:00 36.9 C 55 L 17 107/77 96 06/19/17 09:00 37.1 C 65 18 127/74 98 06/19/17 08:00 77 12 112/78 98 06/19/17 07:00 72 12 123/75 98 06/19/17 06:00 73 17 122/74 96 06/19/17 05:00 70 19 108/65 96 06/19/17 04:07 36.7 C 77 16 98/55 L 97 06/19/17 03:00 81 14 109/72 95 Intake & Output: Intake & Output 06/16/17 06/17/17 06/18/17 06/19/17 23:59 23:59 23:59 23:59 Intake Total 8001.667 1760.000 Output Total 4075 1075 Balance 3926.667 685.000 - Objective General Appearance: positive: No acute distress, Alert Eyes Bilateral: positive: Normal inspection, PERRL Neck: positive: Nml inspection Respiratory: positive: No respiratory distress Cardiovascular: positive: Regular rate & rhythm Peripheral Pulses: 2+ Dorsalis pedis (R), 2+ Dorsalis pedis (L) Abdomen: positive: Non-tender, Nml bowel sounds, No distention Rectal: positive: Black stool Skin: positive: Warm, Dry, Pallor Extremities: positive: Full ROM, No pedal edema Neurologic/Psychiatric: positive: Oriented x3, CN's nml (2-12), Mood/affect nml - Lab Results Fish Bones: 06/19/17 06:40 06/19/17 06:40 Other Labs: Lab Results x24hrs 06/19/17 06/19/17 06/19/17 Range/Units 08:23 06:40 06:40 WBC (4.8-10.8) x10^3/uL RBC (4.70-6.10) 10^6/uL Hgb (14.0-18.0) g/dL Hct (42.0-52.0) % MCV (80.0-94.0) fL MCH (27.0-31.0) pg MCHC (32.0-36.0) g/dL RDW (12.0-15.0) % Plt Count (130-450) 10^3/uL MPV (7.4-11.4) fL Neut # (1.5-6.6) 10^3/uL Lymph # (1.5-3.5) 10^3/uL [place] # (0.0-1.0) 10^3/uL Eos # (0.0-0.7) 10^3/uL Baso # (0.0-0.1) 10^3/uL Absolute Nucleated RBC x10^3/uL Nucleated RBC % /100WBC VBG pH 7.423 H (7.31-7.41) Ionized Calcium 1.10 L YES (1.15-1.33) mmol/L Sodium 138 (135-145) mmol/L Potassium 4.1 (3.5-5.0) mmol/L Chloride 106 (101-111) mmol/L Carbon Dioxide 27 (21-32) mmol/L Anion Gap 5.0 L (6-13) BUN 14 (6-20) mg/dL Creatinine 0.9 (0.6-1.2) mg/dL Estimated GFR (MDRD) 91 (>89) Glucose 120 H (70-100) mg/dL Calcium 8.0 L (8.5-10.3) mg/dL Phosphorus (2.5-4.6) mg/dL Magnesium (1.7-2.8) mg/dL Total Bilirubin 0.4 (0.2-1.0) mg/dL AST 15 (10-42) IU/L ALT 12 (10-60) IU/L Alkaline Phosphatase 21 L (42-121) IU/L Total Protein 4.9 L (6.7-8.2) g/dL Albumin 3.1 L (3.2-5.5) g/dL Globulin 1.8 L (2.1-4.2) g/dL Albumin/Globulin Ratio 1.7 (1.0-2.2) Urine Color YELLOW Urine Clarity CLEAR (CLEAR) Urine pH 6.0 (5.0-7.5) PH Ur Specific [place] 1.010 (1.002-1.030) Urine Protein NEGATIVE (NEGATIVE) mg/dL Urine Glucose (UA) NEGATIVE (NEGATIVE) mg/dL Urine Ketones NEGATIVE (NEGATIVE) mg/dL Urine Occult Blood NEGATIVE (NEGATIVE) Urine Nitrite NEGATIVE (NEGATIVE) Urine Bilirubin NEGATIVE (NEGATIVE) Urine Urobilinogen 0.2 (NORMAL) (NORMAL) E.U./dL Ur Leukocyte Esterase NEGATIVE (NEGATIVE) Urine RBC None Seen (0-5) /HPF Urine WBC 0-3 (0-3) /HPF Ur Squamous Epith Cells RARE Squamous (<= Few) Urine Bacteria None Seen (None Seen) /HPF Urine Culture Comments NOT INDICATED 06/19/17 06/19/17 06/18/17 Range/Units 06:40 06:40 22:30 WBC 6.2 7.9 (4.8-10.8) x10^3/uL RBC 2.38 L 2.51 L (4.70-6.10) 10^6/uL Hgb 7.5 L 7.8 L (14.0-18.0) g/dL Hct 21.7 L 23.1 L (42.0-52.0) % MCV 91.3 92.0 (80.0-94.0) fL MCH 31.6 H 31.1 H (27.0-31.0) pg MCHC 34.6 33.8 (32.0-36.0) g/dL RDW 12.8 13.0 (12.0-15.0) % Plt Count 147 155 (130-450) 10^3/uL MPV 9.4 9.4 (7.4-11.4) fL Neut # 3.7 5.0 (1.5-6.6) 10^3/uL Lymph # 1.9 2.4 (1.5-3.5) 10^3/uL [place] # 0.3 0.3 (0.0-1.0) 10^3/uL Eos # 0.2 0.1 (0.0-0.7) 10^3/uL Baso # 0.1 0.1 (0.0-0.1) 10^3/uL Absolute Nucleated RBC 0.00 0.00 x10^3/uL Nucleated RBC % 0.0 0.0 /100WBC VBG pH (7.31-7.41) Ionized Calcium (1.15-1.33) mmol/L Sodium (135-145) mmol/L Potassium (3.5-5.0) mmol/L Chloride (101-111) mmol/L Carbon Dioxide (21-32) mmol/L Anion Gap (6-13) BUN (6-20) mg/dL Creatinine (0.6-1.2) mg/dL Estimated GFR (MDRD) (>89) Glucose (70-100) mg/dL Calcium (8.5-10.3) mg/dL Phosphorus 1.9 L (2.5-4.6) mg/dL Magnesium 1.8 (1.7-2.8) mg/dL Total Bilirubin (0.2-1.0) mg/dL AST (10-42) IU/L ALT (10-60) IU/L Alkaline Phosphatase (42-121) IU/L Total Protein (6.7-8.2) g/dL Albumin (3.2-5.5) g/dL Globulin (2.1-4.2) g/dL Albumin/Globulin Ratio (1.0-2.2) Urine Color Urine Clarity (CLEAR) Urine pH (5.0-7.5) PH Ur Specific [place] (1.002-1.030) Urine Protein (NEGATIVE) mg/dL Urine Glucose (UA) (NEGATIVE) mg/dL Urine Ketones (NEGATIVE) mg/dL Urine Occult Blood (NEGATIVE) Urine Nitrite (NEGATIVE) Urine Bilirubin (NEGATIVE) Urine Urobilinogen (NORMAL) E.U./dL Ur Leukocyte Esterase (NEGATIVE) Urine RBC (0-5) /HPF Urine WBC (0-3) /HPF Ur Squamous Epith Cells (<= Few) Urine Bacteria (None Seen) /HPF Urine Culture Comments 06/18/17 06/18/17 Range/Units 16:20 14:20 WBC 11.9 H 11.9 H (4.8-10.8) x10^3/uL RBC 2.95 L 2.93 L (4.70-6.10) 10^6/uL Hgb 9.2 L 8.9 L (14.0-18.0) g/dL Hct 26.8 L 26.1 L (42.0-52.0) % MCV 91.0 89.3 (80.0-94.0) fL MCH 31.1 H 30.4 (27.0-31.0) pg MCHC 34.1 34.1 (32.0-36.0) g/dL RDW 13.0 12.7 (12.0-15.0) % Plt Count 187 190 (130-450) 10^3/uL MPV 9.6 9.2 (7.4-11.4) fL Neut # 7.9 H (1.5-6.6) 10^3/uL Lymph # 3.1 (1.5-3.5) 10^3/uL [place] # 0.6 (0.0-1.0) 10^3/uL Eos # 0.2 (0.0-0.7) 10^3/uL Baso # 0.1 (0.0-0.1) 10^3/uL Absolute Nucleated RBC 0.00 x10^3/uL Nucleated RBC % 0.0 /100WBC VBG pH (7.31-7.41) Ionized Calcium (1.15-1.33) mmol/L Sodium (135-145) mmol/L Potassium (3.5-5.0) mmol/L Chloride (101-111) mmol/L Carbon Dioxide (21-32) mmol/L Anion Gap (6-13) BUN (6-20) mg/dL Creatinine (0.6-1.2) mg/dL Estimated GFR (MDRD) (>89) Glucose (70-100) mg/dL Calcium (8.5-10.3) mg/dL Phosphorus (2.5-4.6) mg/dL Magnesium (1.7-2.8) mg/dL Total Bilirubin (0.2-1.0) mg/dL AST (10-42) IU/L ALT (10-60) IU/L Alkaline Phosphatase (42-121) IU/L Total Protein (6.7-8.2) g/dL Albumin (3.2-5.5) g/dL Globulin (2.1-4.2) g/dL Albumin/Globulin Ratio (1.0-2.2) Urine Color Urine Clarity (CLEAR) Urine pH (5.0-7.5) PH Ur Specific [place] (1.002-1.030) Urine Protein (NEGATIVE) mg/dL Urine Glucose (UA) (NEGATIVE) mg/dL Urine Ketones (NEGATIVE) mg/dL Urine Occult Blood (NEGATIVE) Urine Nitrite (NEGATIVE) Urine Bilirubin (NEGATIVE) Urine Urobilinogen (NORMAL) E.U./dL Ur Leukocyte Esterase (NEGATIVE) Urine RBC (0-5) /HPF Urine WBC (0-3) /HPF Ur Squamous Epith Cells (<= Few) Urine Bacteria (None Seen) /HPF Urine Culture Comments - Diagnostic Imaging Diagnostic Imaging Results: positive: Final report reviewed Assessment/Plan - Problem List (1) GI bleed Impression: GI Bleed-The patient wants the source of his GI bleed found before he goes home. Dr. Alvares will see the patient and he will attempt to find the source of the GI bleed. The patient is currently on IV .9 NS and IV protonix. Iron Deficiency Anemia- he will receive 1 unit of packed rbc today On SCD for DVT prevention. On Elavil for depression/anxiety. On atenolol for HTN. Will stop IV Ceftriaxone. Chronic Pancreatitis Pain and abdominal pain is being controlled with IV MS. Hemograms today, cbc, and bmp in am Qualifiers: GI bleed type/associated pathology: melena Qualified Code(s): K92.1 - Melena
[2017-06-19] MEDS: SODIUM CHLORIDE FLUSH 0.9% 10 ML SYRINGE IVP PRN ×3 (11:08→14:07)
[2017-06-19 14:34] LABS: HCT - HEMATOCRIT 24.2 % (42.0-52.0); HGB - HEMOGLOBIN 8.3 g/dL (14.0-18.0)
[2017-06-19] MEDS ORDERED: KETOROLAC 15 MG/ML VIAL IVP PRN (20:37)
[2017-06-19] MEDS ORDERED: ZOLPIDEM 5 MG TABLET PO PRN (20:40)
[2017-06-19] MEDS: AMITRIPTYLINE 25 MG TABLET PO SCH (20:43)
[2017-06-19] MEDS ORDERED: diazePAM 5 MG TABLET PO SCH (21:00)
[2017-06-19 21:16] LABS: HCT - HEMATOCRIT 25.7 % (42.0-52.0); HGB - HEMOGLOBIN 8.8 g/dL (14.0-18.0); MEAN CORPUSCULAR HGB CONC 34.2 g/dL (32.0-36.0); MEAN CORPUSCULAR VOLUME 90.7 fL (80.0-94.0); MEAN PLATELET VOLUME 9.3 fL (7.4-11.4); RED BLOOD COUNT 2.83 10^6/uL (4.70-6.10); RED CELL DISTRIBUTION WIDTH 13.3 % (12.0-15.0); WHITE BLOOD COUNT 6.5 x10^3/uL (4.8-10.8)
[2017-06-20] MEDS: ONDANSETRON 4 MG/2 ML VIAL IVP SCH ×3 (00:23→08:56)
[2017-06-20] MEDS: MORPHINE 2 MG/ML SYRINGE IVP PRN ×10 (01:21→11:00)
[2017-06-20] MEDS ORDERED: diazePAM 5 MG TABLET PO SCH (03:00)
[2017-06-20 05:44] LABS: BASOPHILS # (AUTO) 0.1 10^3/uL (0.0-0.1); EOSINOPHILS # (AUTO) 0.3 10^3/uL (0.0-0.7); HGB - HEMOGLOBIN 8.5 g/dL (14.0-18.0); LYMPHOCYTES # (AUTO) 2.6 10^3/uL (1.5-3.5); LYMPHOCYTES % (AUTO) 39.8 %; MEAN CORPUSCULAR HGB CONC 34.2 g/dL (32.0-36.0); MEAN CORPUSCULAR VOLUME 90.7 fL (80.0-94.0); MEAN PLATELET VOLUME 9.7 fL (7.4-11.4); MONOCYTES # (AUTO) 0.4 10^3/uL (0.0-1.0); MONOCYTES % (AUTO) 5.8 %; NEUTROPHILS # (AUTO) 3.1 10^3/uL (1.5-6.6); NEUTROPHILS % (AUTO) 48.4 %; NUCLEATED RED BLOOD CELLS AUTO 0.1 /100WBC; RED BLOOD COUNT 2.75 10^6/uL (4.70-6.10); RED CELL DISTRIBUTION WIDTH 13.2 % (12.0-15.0); UNCORRECTED WHITE BLOOD COUNT 6.4 x10^3/uL; WHITE BLOOD COUNT 6.4 x10^3/uL (4.8-10.8)
[2017-06-20] MEDS: SODIUM CHLORIDE FLUSH 0.9% 10 ML SYRINGE IVP SCH ×3 (05:54→09:00)
[2017-06-20 05:57] LABS: ALBUMIN/GLOBULIN RATIO 1.4 (1.0-2.2); BILIRUBIN,TOTAL 0.4 mg/dL (0.2-1.0); CALCIUM 7.9 mg/dL (8.5-10.3); MAGNESIUM 1.9 mg/dL (1.7-2.8); PHOSPHORUS 2.6 mg/dL (2.5-4.6); POTASSIUM 3.7 mmol/L (3.5-5.0); TOTAL PROTEIN 5.3 g/dL (6.7-8.2)
[2017-06-20] MEDS: PANTOPRAZOLE 40 MG VIAL IVP SCH (06:54)
[2017-06-20] MEDS: SODIUM CHLORIDE 0.9% 1,000 ML IV SCH (06:54)
[2017-06-20] MEDS: ATENOLOL 25 MG TABLET PO SCH (08:43)
--- NOTE | 2017-06-20 09:14 | Discharge Plan ---
Discharge Plan Disposition: 01 Home, Self Care Condition: Stable Prescriptions: Ferrous Sulfate 324 mg PO DAILY #7 tablet. Diet: Regular Activity Restrictions: Activity as Tolerated Shower Restrictions: No Driving Restrictions: No Weight Bearing: Partial Weight Additional Instructions or Follow Up instructions: THE PATIENT NEEDS TO MAKE AN APPT WITH DR. JAYSHREE OCHOA FOR AN ENDOSCOPY AND IF HE SEES BRIGHT RED BLOOD IN THE STOOL AGAIN HE IS TO GO TO THE ED. HE SHOULD FOLLOW UP WITH DR. RAYMUNDO EARLY NEXT WEEK. No Smoking: If you smoke, Please STOP! Call for help. Follow-up with: Gavino Raymundo MD [Primary Care Provider] -
--- NOTE | 2017-06-20 09:26 | DISCHARGE SUMMARY ---
"Discharge Summary Admit Date: 06/18/17 Discharge Date: 06/20/17 Discharging Provider: Dr. Sol Mccollum Primary Care Provider: Dr. Tae Raymundo Code Status: Attempt Resuscitation Condition at Discharge: Stable Discharge Disposition: 01 Home, Self Care - DIAGNOSES Admission Diagnoses: GI BLEED, MELENA Discharge Diagnoses with Status of Each Condition: GI BLEED-stable, MELENA-resolved - HPI History of Present Illness: Gokul Cordon, a 46 yr white male, presented to the ER with bright red blood in his stool and iron deficiency anemia. Dr. Silva was consulted and did a colonoscopy but did not find the source of the GI bleed. He received IV .9 NS and 2 units of packed rbc during this admission. He received IV protonix. His anxiety/depression was treated with elavil. His HTN was treated with atenolol. He received IV MS for his chronic pancreatitis pain. He was placed on SCDs for DVT prevention. During his hospitalization, he received hemograms monitoring his Hb/Hct. He improved and was D/C to home. He is to follow-up with his PCP early next week who will set him up for an EGD. - CONSULTS | PROCEDURES Consultations: Dr Silva Procedures: Dr. Silva was consulted and did a colonoscopy. - HOSPITAL COURSE Hospital Course: Gokul Cordon, a 46 yr white male, presented to the ER with bright red blood in his stool and iron deficiency anemia. Dr. Silva was consulted and did a colonoscopy but did not find the source of the GI bleed. He received IV .9 NS and 2 units of packed rbc during this admission. He received IV protonix. His anxiety/depression was treated with elavil. His HTN was treated with atenolol. He received IV MS for his chronic pancreatitis pain. He was placed on SCDs for DVT prevention. During his hospitalization, he received hemograms monitoring his Hb/Hct. He improved and was D/C to home. He is to follow-up with his PCP early next week who will set him up for an EGD. - ALLERGIES Allergies/Adverse Reactions: Allergies Allergy/AdvReac Type Severity Reaction Status Date / Time diphenhydramine Allergy Rash Verified 12/14/15 07:25 lorazepam [From Ativan] AdvReac Hallucinati Verified 06/19/17 14:35 ons - MEDICATIONS Home Medications: Ambulatory Orders Medication Instructions Recorded Confirmed Amitriptyline [Elavil] 50 mg PO HS 06/18/17 06/18/17 Atenolol 50 mg PO DAILY 06/18/17 06/18/17 Hydrocodone/Acetaminophen 1 tab PO Q6H PRN 06/18/17 06/18/17 [Hydrocodon-Acetaminoph 7.5-325] Ferrous Sulfate 324 mg PO DAILY #7 tablet. 06/20/17 - PHYSICAL EXAM AT DISCHARGE General Appearance: positive: No acute distress, Alert Eyes Bilateral: positive: Normal inspection, PERRL, EOMI Neck: positive: Nml inspection Respiratory: positive: Chest non-tender, No respiratory distress, Breath sounds nml Cardiovascular: positive: Regular rate & rhythm, No murmur, No gallop Peripheral Pulses: positive: 2+ Abdomen: positive: Non-tender, Nml bowel sounds, No distention Skin: positive: Color nml Extremities: positive: Full ROM, No pedal edema Neurologic/Psychiatric: positive: Oriented x3, CN's nml (2-12), Motor nml, Sensation nml, Mood/affect nml - LABS Result Diagrams: 06/20/17 04:50 06/20/17 04:50 - DIAGNOSTIC IMAGING Diagnostic Imaging Results: Prelim report reviewed, Final report reviewed ( Chest X-ray- normal single view chest) - FOLLOW UP Follow Up: Dr. Lisa galan and Dr Raymundo early next week. - TIME SPENT Time Spent in Discharge (Minutes): 60"
[2017-06-20 10:39] VITALS: BP 112/76
[2017-06-20] MEDS ORDERED: FERROUS SULFATE 325 MG TABLET ONE (11:02)
[2017-06-20] MEDS ORDERED: FERROUS SULFATE 325 MG TABLET PO ONE (11:10)
== END 2017-06-20 11:00 | disposition home or self-care (01) | DRG 378 ==
LOC: EDUNIT# → ED 01:00 → ICU 04:01
PROC: 30233N1 Transfusion of Nonautologous Red Blood Cells into Peripheral Vein, Percutaneous Approach (ICD-10-PCS; 2017-06-18)
PROC: 0DJD8ZZ Inspection of Lower Intestinal Tract, Via Natural or Artificial Opening Endoscopic (ICD-10-PCS; principal; 2017-06-19)
DX: K92.1 Melena (principal); K86.1 Other chronic pancreatitis; D50.9 Iron deficiency anemia, unspecified; I95.1 Orthostatic hypotension; K57.30 Diverticulosis of large intestine without perforation or abscess without bleeding; K64.8 Other hemorrhoids; F41.9 Anxiety disorder, unspecified; F32.9 Major depressive disorder, single episode, unspecified; I10 Essential (primary) hypertension; E78.5 Hyperlipidemia, unspecified; G89.21 Chronic pain due to trauma; Z87.828 Personal history of other (healed) physical injury and trauma; Z87.891 Personal history of nicotine dependence
CPT/HCPCS: 36415; 71010; 80053; 80320; 81001; 82330; 83690; 83735; 84100; 84484; 85014; 85018; 85025; 85610; 85730; 86850; 86900; 86901; 86920; 87040; 87086; 87150; 96361; 96374; 96375; 99284; 99285

== ENCOUNTER 2017-09-29 06:36 | Outpatient (CLI) | payer MEDICARE, MEDICAID | END 2017-09-29 06:37 | disposition home or self-care (01) | LOC: EMS 06:36 | PROVIDERS: ATTEND Surgery | DX: R11.2 Nausea with vomiting, unspecified (principal); R10.11 Right upper quadrant pain | CPT/HCPCS: A0425; A0427 ==

== ENCOUNTER 2017-09-29 06:50 | Emergency (ER) | payer MEDICARE, MEDICAID ==
[2017-09-29] MEDS ORDERED: SODIUM CHLORIDE 0.9% 1,000 ML IV ONE (07:12)
[2017-09-29 07:18] LABS: BASOPHILS # (AUTO) 0.1 10^3/uL (0.0-0.1); BASOPHILS % (AUTO) 0.7 %; EOSINOPHILS # (AUTO) 0.1 10^3/uL (0.0-0.7); EOSINOPHILS % (AUTO) 0.8 %; HGB - HEMOGLOBIN 16.5 g/dL (14.0-18.0); LYMPHOCYTES # (AUTO) 1.9 10^3/uL (1.5-3.5); LYMPHOCYTES % (AUTO) 12.4 %; MEAN CORPUSCULAR HEMOGLOBIN 28.8 pg (27.0-31.0); MEAN CORPUSCULAR HGB CONC 33.4 g/dL (32.0-36.0); MEAN CORPUSCULAR VOLUME 86.3 fL (80.0-94.0); MEAN PLATELET VOLUME 9.4 fL (7.4-11.4); MONOCYTES # (AUTO) 0.6 10^3/uL (0.0-1.0); MONOCYTES % (AUTO) 4.1 %; NEUTROPHILS # (AUTO) 12.4 10^3/uL (1.5-6.6); PLT - PLATELET COUNT 321 10^3/uL (130-450); RED BLOOD COUNT 5.73 10^6/uL (4.70-6.10); RED CELL DISTRIBUTION WIDTH 13.6 % (12.0-15.0); WHITE BLOOD COUNT 15.1 x10^3/uL (4.8-10.8)
[2017-09-29 07:19] LABS: VBG BASE EXCESS 1.8 mmol/L (-2 - +2); VBG PCO2 35.4 mmHg (41-51); VBG PH 7.467 (7.31-7.41); VBG PO2 22.1 mmHg (25-47); VBG TOTAL CO2 26.1 mmol/L (24-29)
[2017-09-29 07:29] LABS: ALBUMIN 4.4 g/dL (3.2-5.5); ALBUMIN/GLOBULIN RATIO 1.2 (1.0-2.2); BILIRUBIN,TOTAL 0.6 mg/dL (0.2-1.0); CALCIUM 9.5 mg/dL (8.5-10.3); CREATININE 1.1 mg/dL (0.6-1.2); MAGNESIUM 1.6 mg/dL (1.7-2.8); TOTAL PROTEIN 8.1 g/dL (6.7-8.2)
[2017-09-29] MEDS ORDERED: ONDANSETRON 4 MG/2 ML VIAL IVP STA (07:35)
[2017-09-29] MEDS ORDERED: MORPHINE 2 MG/ML CARPUJECT IVP STA ×2 (07:35→08:33)
--- NOTE | 2017-09-29 07:53 | ED Physician Documentation ---
History of Present Illness - Stated complaint Stated Complaint: ABD PX - Chief complaint Chief Complaint: Abd Pain - Additonal information Additional information: hx from pt [place] and diffuse abd pain R > L just like his numerous prior episodes of pancreatitis no fever no diarrhea no blood in vomit or BM has been extensively worked up for pancreatitis in the past including RUQ sono ( sludge and or tiny stones), MRCP (CBD 8 no stonea) and numerous CT scans he denies EtOH he states it is believed that his pancreatitis is due to prior penetrating abd trauma and resultant scar tissue no recent ilness no recent bad food though tese sx started after eating a pepperoni stick no travel Review of Systems Constitutional: denies: Fever, Chills GI: reports: Abdominal Pain, Nausea, Vomiting. denies: Diarrhea, Hematemesis, Bloody / black stool Endocrine: denies: Easy bruising / bleeding Immunocompromised: denies: Immunocompromised PD PAST MEDICAL HISTORY - Past Medical History Past Medical History: Yes Cardiovascular: Hypertension Respiratory: None Neuro: None Endocrine/Autoimmune: None GI: Pancreatitis : None HEENT: None Psych: Depression, Anxiety Musculoskeletal: Chronic back pain Derm: None - Past Surgical History Past Surgical History: Yes General: Other - Present Medications Home Medications: Ambulatory Orders Medication Instructions Recorded Confirmed Promethazine [Phenergan] 25 mg PO Q6H PRN #10 tablet 09/29/17 Sucralfate 1 gm PO ACHS #120 tablet 09/29/17 oxyCODONE [Roxicodone] 5 mg PO Q4-6H PRN #10 tablet 09/29/17 raNITIdine [Zantac] 150 mg PO BID #60 tablet 09/29/17 - Allergies Allergies/Adverse Reactions: Allergies Allergy/AdvReac Type Severity Reaction Status Date / Time diphenhydramine Allergy Rash Verified 09/29/17 06:58 lorazepam [From Ativan] AdvReac Hallucinati Verified 09/29/17 06:58 ons - Social History Does the pt smoke?: No Smoking Status: Never smoker Does the pt drink ETOH?: No Does the pt have substance abuse?: No - Immunizations Immunizations are current?: Yes - POLST Patient has POLST: No PD ED PE NORMAL - Vitals Vital signs reviewed: Yes - Cardiac Cardiac: RRR - Respiratory Respiratory: No respiratory distress, Clear bilaterally - Abdomen Abdomen: Soft, Other (diffuse TTP R > L lower > upper, large midline laparotomy scar) - Derm Derm: Normal color - Neuro Neuro: Alert and oriented X 3 Results - Vitals Vitals: Vital Signs - 24 hr 09/29/17 09/29/17 06:52 12:03 Temperature 37.0 C Heart Rate 64 58 L Respiratory 18 18 Rate Blood Pressure 171/97 H 174/102 H O2 Saturation 100 99 Oxygen O2 Source Room air - EKG (time done) 0903 Rate: Rate (enter#) (57) [place]: Normal Intervals: Normal [place] Ischemia: Normal ST segments - Labs Labs: Laboratory Tests 09/29/17 09/29/17 09/29/17 07:08 07:08 07:08 WBC 15.1 H RBC 5.73 Hgb 16.5 Hct 49.4 MCV 86.3 MCH 28.8 MCHC 33.4 RDW 13.6 Plt Count 321 MPV 9.4 Neut # 12.4 H Lymph # 1.9 [place] # 0.6 Eos # 0.1 Baso # 0.1 Absolute Nucleated RBC 0.00 Nucleated RBC % 0.0 VBG pH 7.467 H VBG pCO2 35.4 L VBG pO2 22.1 L VBG HCO3 25.0 VBG Total CO2 26.1 VBG O2 Saturation 48.6 L VBG Base Excess 1.8 Sodium 133 L Potassium 4.6 Chloride 94 L Carbon Dioxide 24 Anion Gap 15.0 H BUN 17 Creatinine 1.1 Estimated GFR (MDRD) 72 L Glucose 178 H Calcium 9.5 Magnesium 1.6 L Total Bilirubin 0.6 AST 22 ALT 14 Alkaline Phosphatase 59 Troponin I Total Protein 8.1 Albumin 4.4 Globulin 3.7 Albumin/Globulin Ratio 1.2 Amylase Lipase 72 H 09/29/17 09/29/17 07:08 10:04 WBC RBC Hgb Hct MCV MCH MCHC RDW Plt Count MPV Neut # Lymph # [place] # Eos # Baso # Absolute Nucleated RBC Nucleated RBC % VBG pH VBG pCO2 VBG pO2 VBG HCO3 VBG Total CO2 VBG O2 Saturation VBG Base Excess Sodium Potassium Chloride Carbon Dioxide Anion Gap BUN Creatinine Estimated GFR (MDRD) Glucose Calcium Magnesium Total Bilirubin AST ALT Alkaline Phosphatase Troponin I < 0.04 Total Protein Albumin Globulin Albumin/Globulin Ratio Amylase 118 H Lipase - Rads (name of study) CXR Radiology: See rad report (NACPD) PD MEDICAL DECISION MAKING - ED course ED course: given that pt is most TTP RLQ and still has his appendix suggested imaging but pt declines stating this feels just like his pancreatitis always eels and he has been exposed to massive amt of radiation with prior scans already amylase lipase minimally elevated at this time gx same seems safe to dc on clear diet with close fup printed dc paperwork pt then told nurse he wanted to speak to me again so i went - he says he hadn't wanted to mention it at first but he has also been having chest pain, right sided aching somewhat worse with moving and palpating and diaphoresis for 2 days - he does have HTN NLD an fhx CAD - so will get EKG and labs . . . and he also says that although i had specifically asked and he had specifically told me that he did not have any blood in his emesis today he actually did have a small amt when he first started vomiting but none after that and no blood in BM (chart review indicates pt admitted for GIB in Jun and had inpt colonoscpy but not EGD - will refer back to Dr Silva for the EGD) . . . and he mentions that todays pain was unusual because typically a hot bath or shower relieves his pancreatitis sx but not this time - he does use THC - so we discussed marijuana cyclic vomiting syndrome and i suggested he dc all marijuane for at least 3 months even if it seems like it helps the sx in the short term HEART score 4 BUT pt has been having sx for better part of several days - will check trop in ER and if neg feel ACS unlikely jamaal in setting of pancreatitis - trop neg will dc as planned and rec stress test for risk stratification given 4 risk factors when i spoke to pt before second attempt to dc he now states he feels diffusely weak, no weak and exhausted he cannot stand up and walk, thinks he needs more IVF, so tried to road test and get orthostatics but he could not due to diffuse exhaustion and weakness - so ordered two more L NS and will reassess felt better after more fluids ablke to walk req phenergan instead of zofran so that rx was changed family here so not going home alone Departure - Departure Clinical Impression: Pancreatitis Qualifiers: Chronicity: acute Pancreatitis type: unspecified pancreatitis type Acute pancreatitis complication: unspecified Qualified Code(s): K85.90 - Acute pancreatitis without necrosis or infection, unspecified Cyclic vomiting syndrome Qualifiers: Vomiting Intractability: non-intractable Nausea presence: with nausea Qualified Code(s): G43.A0 - Cyclical vomiting, not intractable Chest pain Qualifiers: Chest pain type: unspecified Qualified Code(s): R07.9 - Chest pain, unspecified Condition: Good Instructions: ED Diet Clear Liquid, ED Pancreatitis Follow-Up: Werner Silva MD [Provider Admit Priv/Credential] - (for consideration of upper endoscopy) Gavino Raymundo MD [Primary Care Provider] - (tomorrow for a recheck) Prescriptions: oxyCODONE [Roxicodone] 5 mg PO Q4-6H PRN #10 tablet PRN Reason: Severe Pain Promethazine [Phenergan] 25 mg PO Q6H PRN #10 tablet PRN Reason: vomiting raNITIdine [Zantac] 150 mg PO BID #60 tablet Sucralfate 1 gm PO ACHS #120 tablet Comments: Your EKG, blood tests for a heart attack were fine and you history vital signs and exam do not suggest a blood clot in your lungs, and your chest xray does not show an enlarged heart or aorta. I think your heart is OK today and it is OK for you to go home. Buit given that you are a male with high blood pressure high cholesterol and a family history of heart disease, your should talk to your PMD about getting a stress test to further evaluate your risk for heart problems Your blood count is fine - I don't think you lost two much blood when you had some streaks in your vomit this morning. But I do recommend your PMD recheck your blood count tomorrow and I have prescribed Zantac and carafate and referred you to our surgical team for endoscopy Your pancreatitis is mild at this time I think you can safely go home at this time Clear liquid diet for 48 hr - then may advance as tolerated Zofran for vomiting Oxycodone for pain - I have prescribed enough for today and tomorrow but then i want you to see your PMD for a recheck Please follow up with your PMD for a recheck and repeat pancreatic enzyme labs tomorrow and to re-examine your abdomen to be sure you are not developing appendicitis Return to the ER if worse Forms: Activity restrictions
[2017-09-29] MEDS ORDERED: MAGNESIUM OXIDE 400 MG TABLET PO STA (08:39)
[2017-09-29] MEDS ORDERED: FAMOTIDINE 20 MG/50 ML 50 ML IV ONE (08:44)
--- NOTE | 2017-09-29 09:22 | XRAY Report ---
EXAM: CHEST RADIOGRAPHY EXAM DATE: 09/29/2017 08:58 AM. CLINICAL HISTORY: Altered mental status COMPARISON: 06/18/2017. TECHNIQUE: 1 view. FINDINGS: Lungs/Pleura: No focal opacities evident. No pleural effusion. No pneumothorax. Mediastinum: Within exam limitations, the cardiomediastinal contour is normal. Other: None. IMPRESSION: No acute cardiopulmonary abnormality. [facility] Referring Provider Line: [phone] SITE ID: [id number]
--- NOTE | 2017-09-29 09:22 | XRAY Preliminary Report ---
Exam: XR CHEST 1 VIEW X-RAY IMPRESSION: No acute cardiopulmonary abnormality. [facility] SITE ID: [id number]
[2017-09-29] MEDS ORDERED: SODIUM CHLORIDE 0.9% 2,000 ML IV ONE (11:12)
[2017-09-29 12:04] VITALS: BP 174/102
--- NOTE | 2017-09-30 14:05 | ED Physician Documentation ---
ED Addendum - Addendum Addendum: 09/30/17 14:04 Pharmacist called to notify that Gokul had filled a prescription for 120 narcotic pain pills on 10 September. This is a 30 day supply which he gets regularly. His prescription provided by Dr. Valencia is denied.
== END 2017-09-29 12:13 | disposition home or self-care (01) ==
LOC: EDUNIT# → ED 06:50
DX: K85.90 Acute pancreatitis without necrosis or infection, unspecified (principal); G43.A0 Cyclical vomiting, in migraine, not intractable; R07.9 Chest pain, unspecified; I10 Essential (primary) hypertension
CPT/HCPCS: 36415; 71045; 80053; 82150; 82803; 83690; 83735; 84484; 85025; 93005; 96361; 96365; 96375; 96376; 99284; A9270

== ENCOUNTER 2017-11-07 09:22 | Emergency (ER) | payer MEDICARE, MEDICAID ==
--- NOTE | 2017-11-07 10:17 | ED Physician Documentation ---
PD HPI NVD - Stated complaint Stated Complaint: VOMITING - Chief complaint Chief Complaint: Abd Pain - History obtained from History obtained from: Patient - History of Present Illness Timing - onset: Last night (about 3 am) Timing - details: Abrupt onset, Still present Associated symptoms: Abdominal pain, Loss of appetite. No: Fever, Hematemesis, Melena Contributing factors: No: Sick contact, Bad food, Travel Similar symptoms before: Diagnosis (recurrent/chronic pancreatitis related to impalement injury years ago.) Review of Systems Constitutional: reports: Chills, Myalgias. denies: Fever Eyes: denies: Loss of vision, Decreased vision Ears: denies: Loss of hearing, Ear pain Nose: denies: Rhinorrhea / runny nose, Congestion Throat: denies: Sore throat (just some after vomiting) Cardiac: reports: Chest pain / pressure (substernal). denies: Palpitations Respiratory: denies: Dyspnea, Cough GI: reports: Nausea, Vomiting. denies: Abdominal Pain, Diarrhea : denies: Dysuria, Frequency PD PAST MEDICAL HISTORY - Past Medical History Cardiovascular: Hypertension Respiratory: None Neuro: None Endocrine/Autoimmune: None GI: Pancreatitis : None HEENT: None Psych: Depression, Anxiety Musculoskeletal: Chronic back pain Derm: None - Past Surgical History Past Surgical History: Yes General: Other - Present Medications Home Medications: Ambulatory Orders Medication Instructions Recorded Confirmed Promethazine [Phenergan] 25 mg PO Q6H PRN #10 tablet 09/29/17 Sucralfate 1 gm PO ACHS #120 tablet 09/29/17 oxyCODONE [Roxicodone] 5 mg PO Q4-6H PRN #10 tablet 09/29/17 raNITIdine [Zantac] 150 mg PO BID #60 tablet 09/29/17 Acyclovir 800 mg PO 5XD #25 tablet 11/07/17 Amitriptyline [Elavil] 25 mg PO HS #20 tablet 11/07/17 Dexamethasone [Decadron] 4 mg PO DAILY #5 tablet 11/07/17 Oxycodone HCl/Acetaminophen 1 each PO Q6H PRN #8 tablet 11/07/17 [Percocet 5-325 mg Tablet] Promethazine Supp [Phenergan Supp] 25 mg MO Q6H PRN #10 supp 11/07/17 - Allergies Allergies/Adverse Reactions: Allergies Allergy/AdvReac Type Severity Reaction Status Date / Time diphenhydramine Allergy Rash Verified 09/29/17 06:58 lorazepam [From Ativan] AdvReac Hallucinati Verified 09/29/17 06:58 ons - Social History Does the pt smoke?: No Smoking Status: Never smoker Does the pt drink ETOH?: No Does the pt have substance abuse?: No - Immunizations Immunizations are current?: Yes - POLST Patient has POLST: No PD ED PE NORMAL - Vitals Vital signs reviewed: Yes - General General: Alert and oriented X 3, Well developed/nourished - HEENT HEENT: Ears normal, Pharynx benign - Neck Neck: Supple, no meningeal sign, No adenopathy - Cardiac Cardiac: RRR, No murmur - Respiratory Respiratory: Clear bilaterally - Abdomen Abdomen: Soft, Non tender - Rectal Rectal: Deferred - Back Back: No CVA TTP, No spinal TTP - Derm Derm: Normal color, Warm and dry, Other (right lateral abd and lower thoracic area with patchy vesicular red-based areas of tenderness and rash, c/w shingles early, at level of about T8 or 9. Tender skin there. However he is also tender epigastric/RUQ area.) - Extremities Extremities: No deformity Results - Vitals Vitals: Vital Signs - 24 hr 11/07/17 11/07/17 09:37 13:00 Temperature 36.5 C Heart Rate 86 80 Respiratory 18 18 Rate Blood Pressure 149/94 H 133/59 H O2 Saturation 100 95 Oxygen O2 Source Room air - Labs Labs: Laboratory Tests 11/07/17 11/07/17 10:39 10:39 WBC 17.1 H RBC 5.94 Hgb 16.8 Hct 50.5 MCV 85.0 MCH 28.2 MCHC 33.2 RDW 14.2 Plt Count 318 MPV 9.7 Neut # 15.2 H Lymph # 1.3 L Hinds # 0.4 Eos # 0.0 Baso # 0.1 Absolute Nucleated RBC 0.00 Nucleated RBC % 0.0 Sodium 137 Potassium 4.0 Chloride 101 Carbon Dioxide 23 Anion Gap 13.0 BUN 15 Creatinine 1.0 Estimated GFR (MDRD) 80 L Glucose 179 H Calcium 9.5 Total Bilirubin 0.9 AST 28 ALT 15 Alkaline Phosphatase 51 Total Protein 9.0 H Albumin 5.1 Globulin 3.9 Albumin/Globulin Ratio 1.3 Lipase 28 Departure - Departure Disposition: 01 Home, Self Care Clinical Impression: Dehydration, Recurrent abdominal pain Abdominal pain Qualifiers: Abdominal location: upper abdomen, unspecified Qualified Code(s): R10.10 - Upper abdominal pain, unspecified Nausea & vomiting Qualifiers: Vomiting type: unspecified Vomiting Intractability: intractable Qualified Code( s): R11.2 - Nausea with vomiting, unspecified Chronic pancreatitis Qualifiers: Pancreatitis type: unspecified pancreatitis type Qualified Code(s): K86.1 - Other chronic pancreatitis Shingles rash Qualifiers: Herpes zoster complications: without complications Qualified Code(s): B02.9 - Zoster without complications Condition: Stable Record reviewed to determine appropriate education?: Yes Instructions: Abdominal Pain, Pancreatitis Chronic Dc, ED Shingles Follow-Up: Gavino Raymundo MD [Primary Care Provider] - Prescriptions: Acyclovir 800 mg PO 5XD #25 tablet Amitriptyline [Elavil] 25 mg PO HS #20 tablet Dexamethasone [Decadron] 4 mg PO DAILY #5 tablet Oxycodone HCl/Acetaminophen [Percocet 5-325 mg Tablet] 1 each PO Q6H PRN #8 tablet PRN Reason: Pain Promethazine Supp [Phenergan Supp] 25 mg MO Q6H PRN #10 supp PRN Reason: Nausea / Vomiting Comments: Continue usual medications. Short-term use Percocet in addition if needed for acute pain. I only prescribed another 4-3 days. Promethazine orally or suppository if needed for vomiting. Continue other usual medications. Follow- up as needed. For the shingles use acyclovir antiviral 5 times a day for 5 days and Decadron steroid anti-inflammatory daily for 5 days. This tries to decrease the degree of outbreak. It causes a nerve irritation and so he commonly will use another medicine to decrease the nerve irritation. Add Elavil 25 mg at night for 3 weeks for that purpose. Follow-up with your primary care in about a week, call for an appointment. Discharge Date/Time: 11/07/17 13:25
[2017-11-07] MEDS ORDERED: SODIUM CHLORIDE 0.9% 1,000 ML IV ONE ×2 (10:31→10:32)
[2017-11-07] MEDS ORDERED: KETOROLAC 60 MG/2 ML VIAL IVP STA (10:31)
[2017-11-07] MEDS ORDERED: ACYCLOVIR 200 MG CAPSULE PO STA (10:31)
[2017-11-07] MEDS ORDERED: HYDROmorphone 1 MG/ML SYRINGE IVP STA (10:31)
[2017-11-07] MEDS ORDERED: ONDANSETRON 4 MG/2 ML VIAL IVP STA (10:31)
[2017-11-07] MEDS ORDERED: DEXAMETHASONE 10 MG/ML VIAL IVP STA (10:32)
[2017-11-07 10:49] LABS: BASOPHILS # (AUTO) 0.1 10^3/uL (0.0-0.1); BASOPHILS % (AUTO) 0.6 %; EOSINOPHILS % (AUTO) 0.1 %; HGB - HEMOGLOBIN 16.8 g/dL (14.0-18.0); LYMPHOCYTES # (AUTO) 1.3 10^3/uL (1.5-3.5); LYMPHOCYTES % (AUTO) 7.5 %; MEAN CORPUSCULAR HEMOGLOBIN 28.2 pg (27.0-31.0); MEAN CORPUSCULAR HGB CONC 33.2 g/dL (32.0-36.0); MEAN PLATELET VOLUME 9.7 fL (7.4-11.4); MONOCYTES # (AUTO) 0.4 10^3/uL (0.0-1.0); MONOCYTES % (AUTO) 2.4 %; NEUTROPHILS # (AUTO) 15.2 10^3/uL (1.5-6.6); NEUTROPHILS % (AUTO) 89.4 %; PLT - PLATELET COUNT 318 10^3/uL (130-450); RED BLOOD COUNT 5.94 10^6/uL (4.70-6.10); RED CELL DISTRIBUTION WIDTH 14.2 % (12.0-15.0); WHITE BLOOD COUNT 17.1 x10^3/uL (4.8-10.8)
[2017-11-07 10:59] LABS: ALBUMIN 5.1 g/dL (3.2-5.5); ALBUMIN/GLOBULIN RATIO 1.3 (1.0-2.2); BILIRUBIN,TOTAL 0.9 mg/dL (0.2-1.0); CALCIUM 9.5 mg/dL (8.5-10.3)
[2017-11-07 17:09] VITALS: BP 133/59
== END 2017-11-07 13:25 | disposition home or self-care (01) ==
LOC: ED 09:22
DX: E86.0 Dehydration (principal); R10.31 Right lower quadrant pain; R11.2 Nausea with vomiting, unspecified; K86.1 Other chronic pancreatitis; B02.9 Zoster without complications; I10 Essential (primary) hypertension
CPT/HCPCS: 36415; 80053; 83690; 85025; 96361; 96374; 96375; 99283; 99284; A9270; J1170

== ENCOUNTER 2017-11-08 14:42 | Outpatient (CLI) | payer MEDICARE, MEDICAID | END 2017-11-08 14:43 | disposition critical access hospital (66) | LOC: EMS 14:42 | PROVIDERS: ATTEND Surgery | DX: R10.9 Unspecified abdominal pain (principal); R11.0 Nausea | CPT/HCPCS: A0425; A0427 ==

== ENCOUNTER 2017-11-08 15:21 | Emergency (ER) | payer MEDICARE, MEDICAID ==
--- NOTE | 2017-11-08 16:33 | ED Physician Documentation ---
PD HPI ABD PAIN - Stated complaint Stated Complaint: ABDOMINAL PX - Chief complaint Chief Complaint: Abd Pain - History obtained from History obtained from: Patient - History of Present Illness Timing - onset: How many days ago (few) Timing - duration: Days (few) Timing - details: Abrupt onset Quality: Cramping, Aching, Pain Location: RUQ, Epigastric Improved by: No: Vomiting Worsened by: Eating Associated symptoms: Nausea, Vomiting. No: Fever, Hematemesis, Diarrhea Similar symptoms before: Diagnosis Recently seen: Emergency Dept (just yesterday, was feeling improved at time of discharge, but got worse latera gain and did not improve despite NE phenergan and usual pain meds. He does take pain pills regularly and says he still has them but had vomited them so having baseline pain worse too.) Review of Systems Constitutional: reports: Chills, Myalgias. denies: Fever Nose: denies: Rhinorrhea / runny nose, Congestion Throat: denies: Sore throat Respiratory: denies: Cough GI: reports: Abdominal Pain, Nausea, Vomiting. denies: Abdominal Swelling, Constipation, Diarrhea, Hematemesis : denies: Dysuria, Frequency PD PAST MEDICAL HISTORY - Past Medical History Cardiovascular: Hypertension Respiratory: None Neuro: None Endocrine/Autoimmune: None GI: Pancreatitis : None HEENT: None Psych: Depression, Anxiety Musculoskeletal: Chronic back pain Derm: None - Past Surgical History Past Surgical History: Yes General: Other - Present Medications Home Medications: Ambulatory Orders Medication Instructions Recorded Confirmed Promethazine [Phenergan] 25 mg PO Q6H PRN #10 tablet 09/29/17 Sucralfate 1 gm PO ACHS #120 tablet 09/29/17 oxyCODONE [Roxicodone] 5 mg PO Q4-6H PRN #10 tablet 09/29/17 raNITIdine [Zantac] 150 mg PO BID #60 tablet 09/29/17 Acyclovir 800 mg PO 5XD #25 tablet 11/07/17 Amitriptyline [Elavil] 25 mg PO HS #20 tablet 11/07/17 Dexamethasone [Decadron] 4 mg PO DAILY #5 tablet 11/07/17 Oxycodone HCl/Acetaminophen 1 each PO Q6H PRN #8 tablet 11/07/17 [Percocet 5-325 mg Tablet] Promethazine Supp [Phenergan Supp] 25 mg [place] Q6H PRN #10 supp 11/07/17 Lidocaine Viscous 2% [Xylocaine 5 ml MM Q4H PRN #1 bottle 11/09/17 Viscous 2%] - Allergies Allergies/Adverse Reactions: Allergies Allergy/AdvReac Type Severity Reaction Status Date / Time diphenhydramine Allergy Rash Verified 11/08/17 15:21 lorazepam [From Ativan] AdvReac Hallucinati Verified 11/08/17 15:21 ons - Social History Does the pt smoke?: No Smoking Status: Never smoker Does the pt drink ETOH?: No Does the pt have substance abuse?: No - Immunizations Immunizations are current?: Yes - POLST Patient has POLST: No PD ED PE NORMAL - Vitals Vital signs reviewed: Yes - General General: Alert and oriented X 3, Well developed/nourished, Other (obvious distress of pain and nausea) - HEENT HEENT: Pharynx benign - Neck Neck: Supple, no meningeal sign, No adenopathy - Cardiac Cardiac: RRR, No murmur - Respiratory Respiratory: Clear bilaterally - Abdomen Abdomen: Normal bowel sounds, Soft, Non distended, Other (very tender upper abd with guarding and some local percussion tenderness. ) - Male Male : Deferred - Rectal Rectal: Deferred - Back Back: No CVA TTP - Derm Derm: Normal color, Warm and dry Results - Vitals Vitals: Oxygen O2 Source Room air PD MEDICAL DECISION MAKING - ED course Complexity details: considered differential (similar to yesterday chart of chronic pancreatitis, likely gastritis, and could be some element of withdrawal once he is unable to take usual meds for a day. He does use marijuana occasionally and we talked about possible cannabis related hyperemesis, though he has had these episodes related to the pancreatits even before he started marijuana use. ), d/w patient Departure - Departure Disposition: 01 Home, Self Care Clinical Impression: Recurrent abdominal pain Nausea & vomiting Qualifiers: Vomiting type: unspecified Vomiting Intractability: intractable Qualified Code( s): R11.2 - Nausea with vomiting, unspecified Condition: Stable Record reviewed to determine appropriate education?: Yes Instructions: ED Abdominal Pain Unkn Cause Follow-Up: Gavino Raymundo MD [Primary Care Provider] - Comments: Continue current medications. If you have the significant vomiting, he could try to suppositories which since the absorption is poor effectively would still be a regular dose. Continue other usual medications. Follow-up with your primary care. Discharge Date/Time: 11/08/17 19:01
[2017-11-08] MEDS ORDERED: ONDANSETRON 4 MG/2 ML VIAL IVP STA (16:42)
[2017-11-08] MEDS ORDERED: SODIUM CHLORIDE 0.9% 1,000 ML IV ONE ×2 (16:42→16:43)
[2017-11-08] MEDS ORDERED: HYDROmorphone 1 MG/ML SYRINGE IVP STA (16:42)
[2017-11-08] MEDS ORDERED: METOCLOPRAMIDE 10 MG/2 ML VIAL IVP STA ×2 (16:42→18:34)
[2017-11-08] MEDS ORDERED: LIDOCAINE VISCOUS 2% 15 ML UDC MM STA (16:43)
[2017-11-08] MEDS ORDERED: FAMOTIDINE 20 MG/50 ML 50 ML IV ONE (16:43)
[2017-11-08] MEDS ORDERED: MAG HYDROX/AL HYDROX/SIMETH 30 ML UDC PO STA (16:43)
[2017-11-08 18:59] VITALS: BP 148/89
== END 2017-11-08 19:01 | disposition home or self-care (01) ==
LOC: ED 15:21
DX: R10.11 Right upper quadrant pain (principal); R11.2 Nausea with vomiting, unspecified; F12.90 Cannabis use, unspecified, uncomplicated; I10 Essential (primary) hypertension
CPT/HCPCS: 96365; 96375; 96376; 99283; 99284; A9270; J1170; J2765; 80053; 83690; 85025

== ENCOUNTER 2017-11-09 08:49 | Emergency (ER) | payer MEDICARE, MEDICAID ==
[2017-11-09] MEDS ORDERED: SODIUM CHLORIDE 0.9% 1,000 ML IV ONE (09:22)
[2017-11-09] MEDS ORDERED: ONDANSETRON ODT 4 MG TABLET TL STA (09:22)
--- NOTE | 2017-11-09 09:26 | ED Physician Documentation ---
PD HPI NVD - Stated complaint Stated Complaint: R AB PX - Chief complaint Chief Complaint: Abd Pain - History obtained from History obtained from: Patient - History of Present Illness Timing - onset: How many days ago (4) Timing - duration: Days (4) Timing - details: Gradual onset, Still present Associated symptoms: Abdominal pain, Loss of appetite Contributing factors: Other (chronic narcotic use) Improved by: Laying still, Vomiting Worsened by: Eating, Position, Palpation Similar symptoms before: Diagnosis (pancreatitis) Recently seen: Emergency Dept - Additonal information Additional information: 47-year-old male who has chronic abdominal pain reports that when he was 11 years old he fell off of a roof onto a piece of rebar that impaled him from the left side to the right side. 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 He has been on pain medication for the past 10 years and for the most part he indicates that he had no issues until about 10 years ago when he began to experience episodes of pancreatitis. He has some scar tissue on the pancreas and is not a candidate for surgical procedure. He has been in the emergency department the past 2 days in a row with abdominal pain and vomiting is seen Dr. Sarmiento and has been given intravenous fluid and antiemetic. He felt well yesterday after treatment here and was sent home at his request. He does state that he gets into the shower frequently to relieve symptoms and he does smoke cannabis and that prior to having these episodes of abdominal pain he would have episodes of vomiting that he relieved with the shower and this was before he partook in cannabis. He was seen in the emergency department 2 days ago and diagnosed with shingles with a rash on his abdomen he has not been able to keep the acyclovir down. Review of Systems Constitutional: denies: Fever, Chills Eyes: denies: Decreased vision Ears: denies: Ear pain Nose: denies: Congestion Throat: denies: Sore throat Cardiac: denies: Chest pain / pressure, Palpitations Respiratory: denies: Dyspnea, Cough GI: reports: Abdominal Pain, Nausea, Vomiting : denies: Dysuria, Frequency Skin: reports: Rash (of zoster) Musculoskeletal: denies: Neck pain, Back pain, Extremity pain Neurologic: denies: Generalized weakness, Focal weakness PD PAST MEDICAL HISTORY - Past Medical History Cardiovascular: Hypertension Respiratory: None Neuro: None Endocrine/Autoimmune: None GI: Pancreatitis : None HEENT: None Psych: Depression, Anxiety Musculoskeletal: Chronic back pain Derm: None - Past Surgical History Past Surgical History: Yes General: Other - Present Medications Home Medications: Ambulatory Orders Medication Instructions Recorded Confirmed Promethazine [Phenergan] 25 mg PO Q6H PRN #10 tablet 09/29/17 Sucralfate 1 gm PO ACHS #120 tablet 09/29/17 oxyCODONE [Roxicodone] 5 mg PO Q4-6H PRN #10 tablet 09/29/17 raNITIdine [Zantac] 150 mg PO BID #60 tablet 09/29/17 Acyclovir 800 mg PO 5XD #25 tablet 11/07/17 Amitriptyline [Elavil] 25 mg PO HS #20 tablet 11/07/17 Dexamethasone [Decadron] 4 mg PO DAILY #5 tablet 11/07/17 Oxycodone HCl/Acetaminophen 1 each PO Q6H PRN #8 tablet 11/07/17 [Percocet 5-325 mg Tablet] Promethazine Supp [Phenergan Supp] 25 mg [place] Q6H PRN #10 supp 11/07/17 Lidocaine Viscous 2% [Xylocaine 5 ml MM Q4H PRN #1 bottle 11/09/17 Viscous 2%] - Allergies Allergies/Adverse Reactions: Allergies Allergy/AdvReac Type Severity Reaction Status Date / Time diphenhydramine Allergy Rash Verified 11/08/17 15:21 lorazepam [From Ativan] AdvReac Hallucinati Verified 11/08/17 15:21 ons - Social History Does the pt smoke?: No Smoking Status: Never smoker Does the pt drink ETOH?: No Does the pt have substance abuse?: No - Immunizations Immunizations are current?: Yes - POLST Patient has POLST: No PD ED PE NORMAL - Vitals Vital signs reviewed: Yes (hypertensive ) - General General: Alert and oriented X 3, No acute distress, Well developed/nourished - HEENT HEENT: Atraumatic, PERRL, EOMI - Neck Neck: Supple, no meningeal sign - Cardiac Cardiac: RRR, No murmur - Respiratory Respiratory: No respiratory distress, Clear bilaterally - Abdomen Abdomen: Soft, Other (R mid abdomen tenderness to palpation. Well healed midline scar. zoster is crusting in spots over the T 8 dermatome extending to the abdomen anteriorly on the right side. ) - Derm Derm: Normal color, Warm and dry, Other (rash of zoster is present. ) - Extremities Extremities: No deformity, No edema - Neuro Neuro: Alert and oriented X 3, No motor deficit, No sensory deficit, Normal speech Eye Opening: Spontaneous Motor: Obeys Commands Verbal: Oriented GCS Score: 15 - Psych Psych: Normal mood, Normal affect Results - Vitals Vitals: Vital Signs - 24 hr 11/09/17 11/09/17 11/09/17 08:52 10:00 11:00 Temperature 36.5 C Heart Rate 88 68 60 Respiratory 18 18 18 Rate Blood Pressure 125/100 H 123/74 143/85 H O2 Saturation 99 95 94 Oxygen O2 Source Room air - Labs Labs: Laboratory Tests 11/09/17 11/09/17 11/09/17 09:32 09:32 10:00 WBC 17.2 H RBC 4.97 Hgb 14.1 Hct 42.4 MCV 85.4 MCH 28.4 MCHC 33.2 RDW 14.3 Plt Count 215 MPV 9.4 Neut # 15.0 H Lymph # 1.5 Runnels # 0.6 Eos # 0.0 Baso # 0.1 Absolute Nucleated RBC 0.00 Nucleated RBC % 0.0 Sodium 135 Potassium 3.9 Chloride 103 Carbon Dioxide 25 Anion Gap 7.0 BUN 17 Creatinine 0.9 Estimated GFR (MDRD) 90 Glucose 115 H Calcium 8.3 L Total Bilirubin 1.0 AST 28 ALT 16 Alkaline Phosphatase 43 Total Protein 7.3 Albumin 4.1 Globulin 3.2 Albumin/Globulin Ratio 1.3 Lipase 17 L Urine Color LIGHT YELLOW Urine Clarity CLEAR Urine pH 7.0 Ur Specific Rentz 1.010 Urine Protein NEGATIVE Urine Glucose (UA) NEGATIVE Urine Ketones NEGATIVE Urine Occult Blood NEGATIVE Urine Nitrite NEGATIVE Urine Bilirubin NEGATIVE Urine Urobilinogen 0.2 (NORMAL) Ur Leukocyte Esterase NEGATIVE Ur Microscopic Review NOT INDICATED Urine Culture Comments NOT INDICATED Procedures - IVC sono (time) 0920 Bedside IVC sono: IVC measures (cm) (1.38), IVC collapsed c insp (cm) (complete) , Dehydration (est 1 liter deficit.) PD MEDICAL DECISION MAKING - ED course Complexity details: reviewed results, re-evaluated patient, considered differential, d/w patient ED course: 47-year-old male on 7.5 mg of hydrocodone 4 times per day has developed acute nausea and vomiting and has not been able to hold down his pain medication. He was seen in the emergency department yesterday he felt well after leaving the emergency department after getting narcotic injection. He got home he did not take his pain medication and awoke early this morning with nausea took the nausea medicine and pain medication and continue to vomit. Please return to the emergency department. Here in the emergency department he is administered saline and requires only 1 L and Zofran which does not help much with his nausea is administered hydrocodone which does help is administered a second dose with near resolution of his his nausea and at that point I am mostly concerned about narcotic withdrawal as a reason for his persistent vomiting and here in the emergency department we have given him some Zofran and oral hydrocodone prior to discharge. Departure - Departure Disposition: 01 Home, Self Care Clinical Impression: Dehydration, Narcotic withdrawal Instructions: ED Dehydration, ED Withdrawal Narcotic Follow-Up: Gavino Raymundo MD [Primary Care Provider] - Prescriptions: Lidocaine Viscous 2% [Xylocaine Viscous 2%] 5 ml MM Q4H PRN #1 bottle PRN Reason: Abdominal Pain Comments: Take your pain medications on a regular basis.
[2017-11-09 09:40] LABS: BASOPHILS # (AUTO) 0.1 10^3/uL (0.0-0.1); BASOPHILS % (AUTO) 0.3 %; HGB - HEMOGLOBIN 14.1 g/dL (14.0-18.0); LYMPHOCYTES # (AUTO) 1.5 10^3/uL (1.5-3.5); LYMPHOCYTES % (AUTO) 8.9 %; MEAN CORPUSCULAR HEMOGLOBIN 28.4 pg (27.0-31.0); MEAN CORPUSCULAR HGB CONC 33.2 g/dL (32.0-36.0); MEAN CORPUSCULAR VOLUME 85.4 fL (80.0-94.0); MEAN PLATELET VOLUME 9.4 fL (7.4-11.4); MONOCYTES # (AUTO) 0.6 10^3/uL (0.0-1.0); MONOCYTES % (AUTO) 3.7 %; NEUTROPHILS % (AUTO) 87.1 %; PLT - PLATELET COUNT 215 10^3/uL (130-450); RED BLOOD COUNT 4.97 10^6/uL (4.70-6.10); RED CELL DISTRIBUTION WIDTH 14.3 % (12.0-15.0); WHITE BLOOD COUNT 17.2 x10^3/uL (4.8-10.8)
[2017-11-09 09:50] LABS: ALBUMIN 4.1 g/dL (3.2-5.5); ALBUMIN/GLOBULIN RATIO 1.3 (1.0-2.2); CALCIUM 8.3 mg/dL (8.5-10.3); CREATININE 0.9 mg/dL (0.6-1.2); TOTAL PROTEIN 7.3 g/dL (6.7-8.2)
[2017-11-09] MEDS ORDERED: HYDROmorphone 1 MG/ML SYRINGE IVP STA ×2 (09:50→10:53)
[2017-11-09 10:07] LABS: BILIRUBIN,URINE NEGATIVE (NEGATIVE); GLUCOSE, URINE (UA) NEGATIVE (NEGATIVE); KETONES,URINE (UA) NEGATIVE (NEGATIVE); LEUKOCYTE ESTERASE, URINE NEGATIVE (NEGATIVE); NITRITE,URINE NEGATIVE (NEGATIVE); OCCULT BLOOD,URINE NEGATIVE (NEGATIVE); PROTEIN,URINE NEGATIVE (NEGATIVE); UROBILINOGEN,URINE 0.2 (NORMAL) E.U./dL (NORMAL)
[2017-11-09 10:09] LABS: CLARITY,URINE CLEAR (CLEAR)
[2017-11-09 11:17] VITALS: BP 143/85
[2017-11-09] MEDS ORDERED: ONDANSETRON 4 MG/2 ML VIAL IVP STA (11:35)
[2017-11-09] MEDS ORDERED: HYDROcod/ACETAM 7.5 MG/325 MG TABLET PO STA (11:35)
== END 2017-11-09 12:09 | disposition home or self-care (01) ==
LOC: ED 08:49
DX: E86.0 Dehydration (principal); F11.23 Opioid dependence with withdrawal; G89.29 Other chronic pain; I10 Essential (primary) hypertension
CPT/HCPCS: 36415; 80053; 81003; 83690; 85025; 96361; 96374; 96375; 99283; 99284; A9270; J1170; Q0162; 81001; 87086

== ENCOUNTER 2017-11-12 06:29 | Inpatient (IN) | payer MEDICARE, MEDICAID ==
[2017-11-12] MEDS ORDERED: ONDANSETRON 4 MG/2 ML VIAL IVP STA (06:37)
[2017-11-12] MEDS ORDERED: SODIUM CHLORIDE 0.9% 1,000 ML IV ONE (06:37)
[2017-11-12 06:56] LABS: BASOPHILS # (AUTO) 0.1 10^3/uL (0.0-0.1); BASOPHILS % (AUTO) 0.5 %; EOSINOPHILS # (AUTO) 0.3 10^3/uL (0.0-0.7); EOSINOPHILS % (AUTO) 1.9 %; LYMPHOCYTES # (AUTO) 2.4 10^3/uL (1.5-3.5); LYMPHOCYTES % (AUTO) 16.1 %; MEAN CORPUSCULAR HEMOGLOBIN 28.1 pg (27.0-31.0); MEAN CORPUSCULAR VOLUME 85.2 fL (80.0-94.0); MEAN PLATELET VOLUME 9.4 fL (7.4-11.4); MONOCYTES # (AUTO) 0.9 10^3/uL (0.0-1.0); NEUTROPHILS # (AUTO) 11.5 10^3/uL (1.5-6.6); NEUTROPHILS % (AUTO) 75.5 %; PLT - PLATELET COUNT 292 10^3/uL (130-450); RED BLOOD COUNT 6.04 10^6/uL (4.70-6.10); RED CELL DISTRIBUTION WIDTH 13.9 % (12.0-15.0); WHITE BLOOD COUNT 15.2 x10^3/uL (4.8-10.8)
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
[2017-11-12 07:11] LABS: ALBUMIN 4.5 g/dL (3.2-5.5); ALBUMIN/GLOBULIN RATIO 1.2 (1.0-2.2); CALCIUM 9.8 mg/dL (8.5-10.3); CREATININE 1.3 mg/dL (0.6-1.2); TOTAL PROTEIN 8.3 g/dL (6.7-8.2)
[2017-11-12] MEDS ORDERED: HYDROmorphone 1 MG/ML SYRINGE IVP STA ×2 (07:23→08:16)
[2017-11-12] MEDS ORDERED: PROCHLORPERAZINE 10 MG/2 ML VIAL IVP PRN (08:16)
[2017-11-12] MEDS ORDERED: ONDANSETRON 4 MG/2 ML VIAL IVP PRN (08:16)
[2017-11-12] MEDS ORDERED: ONDANSETRON ODT 4 MG TABLET TL PRN (08:16)
[2017-11-12] MEDS ORDERED: HYDROmorphone 1 MG/ML SYRINGE IVP PRN (08:16)
[2017-11-12] MEDS: SODIUM CHLORIDE FLUSH 0.9% 10 ML SYRINGE IVP SCH ×4 (09:39→23:34)
[2017-11-12] MEDS: POLYETHYLENE GLYCOL 3350 17 GM PACKET PO SCH (09:40)
[2017-11-12] MEDS: ACETAMINOPHEN 1,000 MG/100 ML 100 ML IV SCH ×3 (10:22→20:10)
[2017-11-12] MEDS ORDERED: MORPHINE 2 MG/ML CARPUJECT IVP PRN (11:37)
[2017-11-12] MEDS: POTASSIUM CHLOR 10 MEQ/100 ML 10 MEQ/100 ML BAG IV SCH ×3 (11:57→16:05)
[2017-11-12 12:36] LABS: BILIRUBIN,URINE NEGATIVE (NEGATIVE); GLUCOSE, URINE (UA) NEGATIVE (NEGATIVE); KETONES,URINE (UA) NEGATIVE (NEGATIVE); LEUKOCYTE ESTERASE, URINE NEGATIVE (NEGATIVE); NITRITE,URINE NEGATIVE (NEGATIVE); OCCULT BLOOD,URINE NEGATIVE (NEGATIVE); PROTEIN,URINE NEGATIVE (NEGATIVE); UROBILINOGEN,URINE 0.2 (NORMAL) E.U./dL (NORMAL)
[2017-11-12 12:38] LABS: CLARITY,URINE CLEAR (CLEAR)
[2017-11-12] MEDS: SODIUM CHLORIDE 0.9% 1,000 ML IV SCH ×2 (12:48→21:15)
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
[2017-11-12] MEDS: PANTOPRAZOLE 40 MG VIAL IVP SCH ×2 (13:38→16:04)
[2017-11-12] MEDS: MORPHINE 2 MG/ML CARPUJECT IVP PRN ×4 (15:08→22:35)
[2017-11-12] MEDS ORDERED: PANTOPRAZOLE 40 MG VIAL IVP SCH (16:00)
[2017-11-12] MEDS: SODIUM CHLORIDE FLUSH 0.9% 10 ML SYRINGE IVP PRN ×3 (17:43→22:35)
[2017-11-12] MEDS ORDERED: ZOLPIDEM 5 MG TABLET PO PRN (20:07)
[2017-11-12] MEDS ORDERED: AMITRIPTYLINE 25 MG TABLET PO SCH (21:00)
[2017-11-12] MEDS ORDERED: ATENOLOL 25 MG TABLET PO SCH (21:00)
[2017-11-12] MEDS: ACYCLOVIR 200 MG CAPSULE PO SCH (21:15)
[2017-11-13] MEDS: ACETAMINOPHEN 1,000 MG/100 ML 100 ML IV SCH ×2 (03:00→10:24)
[2017-11-13] MEDS: MORPHINE 2 MG/ML CARPUJECT IVP PRN (03:15)
[2017-11-13] MEDS: SODIUM CHLORIDE 0.9% 1,000 ML IV SCH (03:42)
[2017-11-13] MEDS: ACYCLOVIR 200 MG CAPSULE PO SCH ×2 (06:53→10:25)
[2017-11-13] MEDS: SODIUM CHLORIDE FLUSH 0.9% 10 ML SYRINGE IVP PRN (06:54)
[2017-11-13] MEDS: PANTOPRAZOLE 40 MG VIAL IVP SCH (06:54)
[2017-11-13] MEDS: HYDROcod/ACETAM 7.5 MG/325 MG TABLET PO PRN ×2 (10:24→13:42)
[2017-11-13] MEDS: POLYETHYLENE GLYCOL 3350 17 GM PACKET PO SCH (10:30)
[2017-11-13] MEDS: SODIUM CHLORIDE FLUSH 0.9% 10 ML SYRINGE IVP SCH (11:14)
--- NOTE | 2017-11-13 12:30 | Discharge Plan ---
Discharge Plan Disposition: 01 Home, Self Care Condition: Stable Prescriptions: Acyclovir [Zovirax] 800 mg PO 5XD #35 capsule Diet: Regular Activity Restrictions: Activity as Tolerated Shower Restrictions: No Driving Restrictions: No Additional Instructions or Follow Up instructions: you were admitted to the hospital for intractable nausea and vomitting with abdominal pain. Unfortunately you have severe irritable bowel syndrome as a diagnosis with previous history of pancreatic trauma and multiple surgeries when you were young and this has resulted in episodes of abdominal pain like this. You have been seen by multiple, multiple surgical and gastroenterologic specialists from [facility] and [facility] per your oral history and most recently taken care of by the specialty service thru Doctor Zackary. While here you were treated with nausea medicine such as zofran and compazine as needed. Initially we treated your pain with dilaudid IV but it didn't last more than "16 minutes" for you. We switched you to morphine IV and that worked much better. You usually take 3-4 days to get over these episodes, but you were able to recover and eat solid food by 36 hours this time. The only other problem we found was shingles on the right abdominal wall skin in the T10 dermatome. You are now on acyclovir for the next [address] Raymundo most graciously discussed your case with me. He will need to see you followup in the next 1-2 weeks. Other than you trying a new proton pump inhibitor to reduce your stomach acid, there will be no change in your medicines. No Smoking: If you smoke, Please STOP! Call for help. Follow-up with: Gavino Raymundo MD [Primary Care Provider] -
[2017-11-13 13:34] VITALS: BP 148/79
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
== END 2017-11-13 13:46 | disposition home or self-care (01) | DRG 392 ==
LOC: ED 06:29 → MS2 08:17
PROVIDERS: ADMIT Specialist; ATTEND Specialist
DX: R11.2 Nausea with vomiting, unspecified (principal); K86.1 Other chronic pancreatitis; K29.00 Acute gastritis without bleeding; N17.9 Acute kidney failure, unspecified; S36.99 Other injury of unspecified intra-abdominal organ; R10.13 Epigastric pain; R10.12 Left upper quadrant pain; G89.29 Other chronic pain; K58.9 Irritable bowel syndrome, unspecified; B02.9 Zoster without complications; E86.0 Dehydration; I10 Essential (primary) hypertension; E78.5 Hyperlipidemia, unspecified; F17.290 Nicotine dependence, other tobacco product, uncomplicated; F32.9 Major depressive disorder, single episode, unspecified; Z87.828 Personal history of other (healed) physical injury and trauma; Z83.79 Family history of other diseases of the digestive system; Z79.891 Long term (current) use of opiate analgesic
CPT/HCPCS: 36415; 80053; 81001; 81003; 83690; 85025; 87086; 96361; 96374; 96375; 96376; 99283; 99285

== ENCOUNTER 2018-03-27 06:12 | Emergency (ER) | payer MEDICARE, MEDICAID ==
[2018-03-27] MEDS: SODIUM CHLORIDE 0.9% 1,000 ML IV ONE ×2 (06:34→07:26)
[2018-03-27] MEDS: ONDANSETRON 4 MG/2 ML VIAL IVP STA ×2 (06:34→07:26)
[2018-03-27 06:39] LABS: BASOPHILS # (AUTO) 0.1 10^3/uL (0.0-0.1); BASOPHILS % (AUTO) 0.8 %; EOSINOPHILS # (AUTO) 0.5 10^3/uL (0.0-0.7); EOSINOPHILS % (AUTO) 4.9 %; HGB - HEMOGLOBIN 15.4 g/dL (14.0-18.0); LYMPHOCYTES # (AUTO) 2.2 10^3/uL (1.5-3.5); LYMPHOCYTES % (AUTO) 19.7 %; MEAN CORPUSCULAR HEMOGLOBIN 30.9 pg (27.0-31.0); MEAN CORPUSCULAR HGB CONC 33.3 g/dL (32.0-36.0); MEAN PLATELET VOLUME 9.9 fL (7.4-11.4); MONOCYTES # (AUTO) 0.7 10^3/uL (0.0-1.0); MONOCYTES % (AUTO) 6.1 %; NEUTROPHILS # (AUTO) 7.6 10^3/uL (1.5-6.6); NEUTROPHILS % (AUTO) 68.5 %; PLT - PLATELET COUNT 263 10^3/uL (130-450); RED BLOOD COUNT 4.99 10^6/uL (4.70-6.10); RED CELL DISTRIBUTION WIDTH 12.6 % (12.0-15.0); WHITE BLOOD COUNT 11.1 x10^3/uL (4.8-10.8)
[2018-03-27 06:44] LABS: ALBUMIN 4.4 g/dL (3.2-5.5); ALBUMIN/GLOBULIN RATIO 1.4 (1.0-2.2); PHOSPHORUS 1.3 mg/dL (2.5-4.6); TOTAL PROTEIN 7.6 g/dL (6.7-8.2)
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
[2018-03-27] MEDS: HYDROmorphone 1 MG/ML CARPUJECT IVP STA ×2 (07:26→11:07)
[2018-03-27 08:03] LABS: BILIRUBIN,URINE NEGATIVE (NEGATIVE); GLUCOSE, URINE (UA) NEGATIVE (NEGATIVE); KETONES,URINE (UA) NEGATIVE (NEGATIVE); LEUKOCYTE ESTERASE, URINE NEGATIVE (NEGATIVE); NITRITE,URINE NEGATIVE (NEGATIVE); OCCULT BLOOD,URINE NEGATIVE (NEGATIVE); PH,URINE 7.5 PH (5.0-7.5); PROTEIN,URINE NEGATIVE (NEGATIVE); UROBILINOGEN,URINE 0.2 (NORMAL) E.U./dL (NORMAL)
[2018-03-27] MEDS: NEUTRA-PHOS 250 MG TABLET PO STA (08:07)
[2018-03-27 08:08] LABS: CLARITY,URINE CLEAR (CLEAR)
[2018-03-27] MEDS: ACETAMINOPHEN 1,000 MG/100 ML 100 ML IV STA (08:21)
--- NOTE | 2018-03-27 08:36 | XRAY Report ---
Procedure Date: 03/27/2018 Accession Number: [id number] / [id number] Procedure: XR - Abdomen 2 View X-Ray CPT Code: 76231 FULL RESULT: EXAM: ABDOMEN RADIOGRAPHY EXAM DATE: 03/27/2018 08:02 AM. CLINICAL HISTORY: NV abd pain eval for obstruction. COMPARISON: None. TECHNIQUE: 2 views. FINDINGS: Lung Bases: Unremarkable. Bowel Gas Pattern: Within normal limits. No dilated loops or abnormal fluid levels. Free Air: None. Other: None. IMPRESSION: Normal 2-view abdomen x-ray. RADIA
[2018-03-27] MEDS: THIAMINE INJ 100 MG, FOLIC ACID INJ 1 MG in SODIUM CHLORIDE 0.9% 100ML 100 ML IV STA (08:56)
[2018-03-27] MEDS: MULTIVITAMIN 10 ML in SODIUM CHLORIDE 0.9% 1,000 ML IV STA (08:56)
[2018-03-27] MEDS: MAGNESIUM SULFATE 2 GRAM 2 GM/50 ML BAG IV STA (08:56)
[2018-03-27] MEDS: PROMETHAZINE INJ 25 MG in SODIUM CHLORIDE 0.9% 50 ML IV STA (10:11)
[2018-03-27 11:38] VITALS: BP 164/58
== END 2018-03-27 12:01 | disposition home or self-care (01) ==
LOC: ED 06:12
DX: G43.A0 Cyclical vomiting, in migraine, not intractable (principal); R74.8 Abnormal levels of other serum enzymes; Z87.891 Personal history of nicotine dependence; I10 Essential (primary) hypertension
CPT/HCPCS: 36415; 74019; 80053; 81003; 83690; 83735; 84100; 85025; 96361; 96365; 96367; 96368; 96375; 96376; 99283; A9270; J0131; J1170; J7040; 81001; 87086

== ENCOUNTER 2018-04-03 07:31 | Emergency (ER) | payer MEDICARE, MEDICAID ==
[2018-04-03] MEDS ORDERED: SODIUM CHLORIDE 0.9% 1,000 ML IV ONE (07:36)
[2018-04-03] MEDS ORDERED: HALOPERIDOL 5 MG/ML VIAL IVP STA (07:41)
[2018-04-03] MEDS ORDERED: PROMETHAZINE INJ 25 MG in SODIUM CHLORIDE 0.9% 50 ML IV STA (07:43)
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
[2018-04-03 08:17] LABS: BASOPHILS # (AUTO) 0.1 10^3/uL (0.0-0.1); BASOPHILS % (AUTO) 0.5 %; EOSINOPHILS # (AUTO) 0.5 10^3/uL (0.0-0.7); EOSINOPHILS % (AUTO) 4.6 %; HGB - HEMOGLOBIN 15.2 g/dL (14.0-18.0); LYMPHOCYTES # (AUTO) 1.1 10^3/uL (1.5-3.5); LYMPHOCYTES % (AUTO) 11.2 %; MEAN CORPUSCULAR HEMOGLOBIN 30.7 pg (27.0-31.0); MEAN CORPUSCULAR HGB CONC 33.3 g/dL (32.0-36.0); MEAN CORPUSCULAR VOLUME 92.2 fL (80.0-94.0); MEAN PLATELET VOLUME 9.7 fL (7.4-11.4); MONOCYTES # (AUTO) 0.3 10^3/uL (0.0-1.0); MONOCYTES % (AUTO) 2.9 %; NEUTROPHILS # (AUTO) 8.2 10^3/uL (1.5-6.6); NEUTROPHILS % (AUTO) 80.8 %; PLT - PLATELET COUNT 237 10^3/uL (130-450); RED BLOOD COUNT 4.96 10^6/uL (4.70-6.10); RED CELL DISTRIBUTION WIDTH 12.6 % (12.0-15.0); WHITE BLOOD COUNT 10.2 x10^3/uL (4.8-10.8)
[2018-04-03 08:28] LABS: ALBUMIN/GLOBULIN RATIO 1.1 (1.0-2.2); CALCIUM 9.5 mg/dL (8.5-10.3); TOTAL PROTEIN 7.5 g/dL (6.7-8.2)
[2018-04-03] MEDS ORDERED: HYDROmorphone 1 MG/ML CARPUJECT IVP STA ×2 (08:45→09:38)
[2018-04-03 10:17] VITALS: BP 127/80
== END 2018-04-03 10:16 | disposition home or self-care (01) ==
LOC: ED 07:31
DX: K85.90 Acute pancreatitis without necrosis or infection, unspecified (principal); G43.A0 Cyclical vomiting, in migraine, not intractable; G89.21 Chronic pain due to trauma; R10.9 Unspecified abdominal pain; I10 Essential (primary) hypertension
CPT/HCPCS: 36415; 80053; 83690; 85025; 96361; 96365; 96375; 96376; 99283; J1170; J7040

== ENCOUNTER 2018-04-09 13:00 | Emergency (ER) | payer MEDICARE, MEDICAID ==
[2018-04-09] MEDS ORDERED: SODIUM CHLORIDE 0.9% 1,000 ML IV ONE (13:43)
[2018-04-09] MEDS ORDERED: HYDROmorphone 2 MG/ML VIAL IVP STA (14:07)
[2018-04-09] MEDS ORDERED: PROMETHAZINE INJ 25 MG in SODIUM CHLORIDE 0.9% 50 ML IV STA (14:07)
[2018-04-09 14:46] LABS: BASOPHILS # (AUTO) 0.1 10^3/uL (0.0-0.1); BASOPHILS % (AUTO) 0.6 %; EOSINOPHILS # (AUTO) 0.3 10^3/uL (0.0-0.7); EOSINOPHILS % (AUTO) 2.6 %; HGB - HEMOGLOBIN 15.8 g/dL (14.0-18.0); LYMPHOCYTES # (AUTO) 1.4 10^3/uL (1.5-3.5); LYMPHOCYTES % (AUTO) 10.9 %; MEAN CORPUSCULAR HEMOGLOBIN 30.7 pg (27.0-31.0); MEAN CORPUSCULAR HGB CONC 33.3 g/dL (32.0-36.0); MEAN CORPUSCULAR VOLUME 92.1 fL (80.0-94.0); MEAN PLATELET VOLUME 10.1 fL (7.4-11.4); MONOCYTES # (AUTO) 0.4 10^3/uL (0.0-1.0); MONOCYTES % (AUTO) 2.7 %; NEUTROPHILS # (AUTO) 10.7 10^3/uL (1.5-6.6); NEUTROPHILS % (AUTO) 83.2 %; PLT - PLATELET COUNT 312 10^3/uL (130-450); RED BLOOD COUNT 5.16 10^6/uL (4.70-6.10); RED CELL DISTRIBUTION WIDTH 13.2 % (12.0-15.0); WHITE BLOOD COUNT 12.9 x10^3/uL (4.8-10.8)
--- NOTE | 2018-04-09 15:05 | ED Physician Documentation ---
History of Present Illness - Stated complaint Stated Complaint: ABD PX - Chief complaint Chief Complaint: Abd Pain - Additonal information Additional information: hx from pt 47 male well known to our ER suffered penetrating trauma to abd 2/2 eliceoar karolale subsequent chronic abd pain and recurrent pancreatitis seen by me twice last 2 weeks, second time lipase was slightly elevated, was txed in ED with IVF pain meds and anti emetics and able to dc home has had laproscopy and several EGD and colonoscopies as well at [facility] and [facility] same sx no fever no diarrhea Review of Systems Constitutional: denies: Fever Cardiac: denies: Chest pain / pressure Respiratory: denies: Dyspnea GI: reports: Abdominal Pain, Nausea, Vomiting. denies: Diarrhea Endocrine: denies: Easy bruising / bleeding Immunocompromised: denies: Immunocompromised PD PAST MEDICAL HISTORY - Past Medical History Past Medical History: Yes Cardiovascular: Hypertension Respiratory: None Endocrine/Autoimmune: None GI: Pancreatitis : None HEENT: None Psych: Depression, Anxiety Musculoskeletal: Chronic back pain Derm: None - Past Surgical History Past Surgical History: Yes General: Other - Present Medications Home Medications: Ambulatory Orders Medication Instructions Recorded Confirmed raNITIdine [Zantac] 150 mg PO BID #60 tablet 09/29/17 11/12/17 Amitriptyline [Elavil] 50 mg PO QPM 11/12/17 11/12/17 Atenolol 25 mg PO QPM 11/12/17 11/12/17 Hydrocodone/Acetaminophen 1 tab PO QID 11/12/17 11/12/17 [Hydrocodone-Acetamin 7.5-325] Acyclovir [Zovirax] 800 mg PO 5XD #35 capsule 11/13/17 Ondansetron Odt [Zofran] 4 mg TL Q6H PRN #10 tablet 03/27/18 Promethazine Supp [Phenergan Supp] 25 mg CA Q6H PRN #10 supp 03/27/18 Zolpidem [Ambien] 5 mg PO HS #2 tablet 04/09/18 - Allergies Allergies/Adverse Reactions: Allergies Allergy/AdvReac Type Severity Reaction Status Date / Time diphenhydramine Allergy Rash Verified 04/09/18 13:25 lorazepam [From Ativan] AdvReac Hallucinati Verified 04/09/18 13:25 ons - Social History Does the pt smoke?: No Smoking Status: Never smoker Does the pt drink ETOH?: No Does the pt have substance abuse?: No - Immunizations Immunizations are current?: Yes - POLST Patient has POLST: No PD ED PE NORMAL - Vitals Vital signs reviewed: Yes - General General: Alert and oriented X 3, Other (looks better than last 2 visits) - Cardiac Cardiac: RRR - Respiratory Respiratory: No respiratory distress, Clear bilaterally - Abdomen Abdomen: Soft, Other (mod TTP across upper abd no pulsatile mass no rebound or guarding) - Derm Derm: Normal color - Neuro Neuro: Alert and oriented X 3 Results - Vitals Vitals: Vital Signs - 24 hr 04/09/18 04/09/18 13:22 15:59 Temperature 36.6 C Heart Rate 84 79 Respiratory 20 14 Rate Blood Pressure 123/75 128/84 H O2 Saturation 99 95 Oxygen O2 Source Room air - Labs Labs: Laboratory Tests 04/09/18 04/09/18 14:30 14:56 WBC 12.9 H RBC 5.16 Hgb 15.8 Hct 47.6 MCV 92.1 MCH 30.7 MCHC 33.3 RDW 13.2 Plt Count 312 MPV 10.1 Neut # (Auto) 10.7 H Lymph # (Auto) 1.4 L [place] # (Auto) 0.4 Eos # (Auto) 0.3 Baso # (Auto) 0.1 Absolute Nucleated RBC 0.00 Nucleated RBC % 0.0 Sodium 137 Potassium 4.2 Chloride 104 Carbon Dioxide 24 Anion Gap 9.0 BUN 11 Creatinine 0.9 Estimated GFR (MDRD) 90 Glucose 112 H Calcium 8.9 Total Bilirubin 0.7 AST 19 ALT 15 Alkaline Phosphatase 51 Total Protein 7.0 Albumin 3.9 Globulin 3.1 Albumin/Globulin Ratio 1.3 Lipase 194 H PD MEDICAL DECISION MAKING - ED course ED course: MSE performed recurrent problem lipase modestly elevated pt feeling better is a chronic issue - not a correctable problem like EtOH pancreatitis or gallstone pancreatitis has speiclaty fup Saturday has had numerous extensive prior work ups feels safe and stable for dc pt req ambiem for sleep - he has taken and tolerated well before - does not interact with other meds - rx 2 until his fu appt Saturday - Sepsis Event Vital Signs: Vital Signs - 24 hr 04/09/18 04/09/18 13:22 15:59 Temperature 36.6 C Heart Rate 84 79 Respiratory 20 14 Rate Blood Pressure 123/75 128/84 H O2 Saturation 99 95 Oxygen O2 Source Room air Departure - Departure Disposition: Home, Self Care Clinical Impression: Abdominal pain Vomiting Qualifiers: Vomiting type: unspecified Vomiting Intractability: non-intractable Nausea presence: with nausea Qualified Code(s): R11.2 - Nausea with vomiting, unspecified Chronic pancreatitis Qualifiers: Pancreatitis type: unspecified pancreatitis type Qualified Code(s): K86.1 - Other chronic pancreatitis Condition: Good Prescriptions: Zolpidem [Ambien] 5 mg PO HS #2 tablet Comments: Your lipase is again elevated - 194 today - higher than last time You are feeling better now and this is a chronic problem for you so I think it is safe for you to go home and follow up with your specialist Saturday as planned Again I recommend a clear liquid diet to rest your pancreas Take the pain medications you already have as directed as needed
[2018-04-09 15:16] LABS: ALBUMIN 3.9 g/dL (3.2-5.5); ALBUMIN/GLOBULIN RATIO 1.3 (1.0-2.2); BILIRUBIN,TOTAL 0.7 mg/dL (0.2-1.0); CALCIUM 8.9 mg/dL (8.5-10.3); CREATININE 0.9 mg/dL (0.6-1.2)
[2018-04-09] MEDS ORDERED: HYDROmorphone 1 MG/ML CARPUJECT IVP STA (15:33)
[2018-04-09 16:54] VITALS: BP 130/88
== END 2018-04-09 16:54 | disposition home or self-care (01) ==
LOC: ED 13:00
DX: K86.1 Other chronic pancreatitis (principal); R11.2 Nausea with vomiting, unspecified; I10 Essential (primary) hypertension
CPT/HCPCS: 36415; 80053; 83690; 85025; 96365; 96375; 96376; 99283; J1170; J7040

== ENCOUNTER 2018-04-19 10:44 | Emergency (ER) | payer MEDICARE, MEDICAID ==
--- NOTE | 2018-04-19 11:52 | ED Physician Documentation ---
History of Present Illness - Stated complaint Stated Complaint: FACE LAC - Chief complaint Chief Complaint: Laceration - History obtained from History obtained from: Patient - History of Present Illness Timing: Today - Additonal information Additional information: 47-year-old [place] away a chair when a part of the snapped back and struck him in the left spiritism. He did not have any loss of consciousness he does have a laceration to the area he was able to control bleeding easily and is come in now for repair. Review of Systems Constitutional: denies: Fever Eyes: denies: Decreased vision Ears: denies: Ear pain Nose: denies: Rhinorrhea / runny nose, Congestion Throat: denies: Sore throat Respiratory: denies: Cough GI: denies: Vomiting : denies: Dysuria Skin: reports: Laceration (s). denies: Rash Musculoskeletal: denies: Neck pain Neurologic: denies: Generalized weakness, Focal weakness, Numbness PD PAST MEDICAL HISTORY - Past Medical History Past Medical History: Yes Cardiovascular: Hypertension Respiratory: None Endocrine/Autoimmune: None GI: Pancreatitis : None HEENT: None Psych: Depression, Anxiety Musculoskeletal: Chronic back pain Derm: None - Past Surgical History Past Surgical History: Yes General: Other - Present Medications Home Medications: Ambulatory Orders Medication Instructions Recorded Confirmed raNITIdine [Zantac] 150 mg PO BID #60 tablet 09/29/17 11/12/17 Amitriptyline [Elavil] 50 mg PO QPM 11/12/17 11/12/17 Atenolol 25 mg PO QPM 11/12/17 11/12/17 Hydrocodone/Acetaminophen 1 tab PO QID 11/12/17 11/12/17 [Hydrocodone-Acetamin 7.5-325] Acyclovir [Zovirax] 800 mg PO 5XD #35 capsule 11/13/17 Ondansetron Odt [Zofran] 4 mg TL Q6H PRN #10 tablet 03/27/18 Zolpidem [Ambien] 5 mg PO HS #2 tablet 04/09/18 - Allergies Allergies/Adverse Reactions: Allergies Allergy/AdvReac Type Severity Reaction Status Date / Time diphenhydramine Allergy Rash Verified 04/09/18 13:25 haloperidol [From Haldol] AdvReac Anxiety Verified 04/19/18 10:50 lorazepam [From Ativan] AdvReac Hallucinati Verified 04/19/18 10:50 ons - Social History Does the pt smoke?: No Smoking Status: Never smoker Does the pt drink ETOH?: No Does the pt have substance abuse?: No - Immunizations Immunizations are current?: Yes - POLST Patient has POLST: No PD ED PE NORMAL - Vitals Vital signs reviewed: Yes (hypertensive ) - General General: No acute distress, Well developed/nourished - HEENT HEENT: PERRL, EOMI, Other (There is a 2.5cm lacertion to the left spiritism area that does not involve deeperstructures. 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, No motor deficit, No sensory deficit, Normal speech Eye Opening: Spontaneous Motor: Obeys Commands Verbal: Oriented GCS Score: 15 - Psych Psych: Normal mood, Normal affect Results - Vitals Vitals: Vital Signs - 24 hr 04/19/18 10:47 Temperature 36 C L Heart Rate 69 Respiratory 22 Rate Blood Pressure 150/102 H O2 Saturation 97 Oxygen O2 Source Room air Procedures - Laceration (location) face Length in cm: 2.5 Wound type: Stellate, Clean Neurovascular status: Sensory intact, Motor intact, Vascular intact Wound Preparation: Chlorhexadine, Wound explored, To the base Skin layer closure: Dermabond Other: Patient tolerated well, No complications, Neurovascular intact, Dressing applied, Tetanus UTD Complexity: Simple PD MEDICAL DECISION MAKING - ED course Complexity details: considered differential, d/w patient ED course: 47-year-old male with a laceration to the left spiritism has good approximation of the margins of the wound and this is closed with Dermabond. Patient tolerates this well. - Sepsis Event Vital Signs: Vital Signs - 24 hr 04/19/18 10:47 Temperature 36 C L Heart Rate 69 Respiratory 22 Rate Blood Pressure 150/102 H O2 Saturation 97 Oxygen O2 Source Room air Departure - Departure Disposition: 01 Home, Self Care Clinical Impression: Facial laceration Qualifiers: Encounter type: initial encounter Qualified Code(s): S01.81XA - Laceration without foreign body of other part of head, initial encounter Instructions: ED Laceration Facial Skin Glue Follow-Up: Gavino Raymundo MD [Primary Care Provider] -
[2018-04-19 12:01] VITALS: BP 134/85
== END 2018-04-19 11:58 | disposition home or self-care (01) ==
LOC: ED 10:44
DX: S01.81XA Laceration without foreign body of other part of head, initial encounter (principal); I10 Essential (primary) hypertension; W20.8XXA Other cause of strike by thrown, projected or falling object, initial encounter; Y92.89 Other specified places as the place of occurrence of the external cause
CPT/HCPCS: 12011; 99282; 99283

== ENCOUNTER 2019-05-01 11:53 | Observation (INO) | payer MEDICARE, MEDICAID ==
--- NOTE | 2019-05-01 12:35 | ED Physician Documentation ---
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 Also in June 2017 he had an episode of GI bleeding with unknown source. He had a colonoscopy at that time which was basically negative, no upper endoscopy at that time. Prior upper endoscopies did not show anything for him. He woke up this morning with central chest pain that has since radiated somewhat to the left. It hurts to take a deep breath but is not short of breath per se. He feels very sweaty with it. His abdominal pain is no worse than normal. He notes that a few days ago he had a complicated dental extraction, and was on antibiotics. He feels that is somehow related.) Review of Systems Ten Systems: 10 systems reviewed and negative Constitutional: reports: Sweats. denies: Fever, Chills Cardiac: reports: Chest pain / pressure. denies: Palpitations, Pedal edema, Calf pain Respiratory: denies: Dyspnea, Cough GI: denies: Abdominal Pain PD PAST MEDICAL HISTORY - Past Medical History Cardiovascular: Hypertension Respiratory: None Endocrine/Autoimmune: None GI: Pancreatitis : None HEENT: None Psych: Depression, Anxiety Musculoskeletal: Chronic back pain Derm: None - Past Surgical History Past Surgical History: Yes General: Other - Present Medications Home Medications: Ambulatory Orders Medication Instructions Recorded Confirmed raNITIdine [Zantac] 150 mg PO BID #60 tablet 09/29/17 11/12/17 Amitriptyline [Elavil] 50 mg PO QPM 11/12/17 11/12/17 Atenolol 25 mg PO QPM 11/12/17 11/12/17 Hydrocodone/Acetaminophen 1 tab PO QID 11/12/17 11/12/17 [Hydrocodone-Acetamin 7.5-325] Acyclovir [Zovirax] 800 mg PO 5XD #35 capsule 11/13/17 Ondansetron Odt [Zofran] 4 mg TL Q6H PRN #10 tablet 03/27/18 Zolpidem [Ambien] 5 mg PO HS #2 tablet 04/09/18 - Allergies Allergies/Adverse Reactions: Allergies Allergy/AdvReac Type Severity Reaction Status Date / Time diphenhydramine Allergy Rash Verified 05/01/19 12:04 haloperidol [From Haldol] AdvReac Anxiety Verified 05/01/19 12:04 lorazepam [From Ativan] AdvReac Hallucinati Verified 05/01/19 12:04 ons - Social History Does the pt smoke?: No Smoking Status: Never smoker Does the pt drink ETOH?: No Does the pt have substance abuse?: No - Immunizations Immunizations are current?: Yes - POLST Patient has POLST: No PD ED PE NORMAL - Vitals Vital signs reviewed: Yes - General General: Alert and oriented X 3, No acute distress, Other (He is diaphoretic and tachycardic) - HEENT HEENT: PERRL, EOMI - Neck Neck: Supple, no meningeal sign, No bony TTP - Cardiac Cardiac: Other (Tachycardic, regular, no murmur. No chest wall tenderness.) - Respiratory Respiratory: No respiratory distress, Clear bilaterally - Abdomen Abdomen: Soft, Non tender - Rectal Rectal: Other (brown, trace guaiac positive, QC pass) - Back Back: No CVA TTP, No spinal TTP - Derm Derm: No rash - Extremities Extremities: No edema, No calf tenderness / cord - Neuro Neuro: Alert and oriented X 3, Normal speech Results - Vitals Vitals: Vital Signs - 24 hr 05/01/19 05/01/19 12:02 12:13 Temperature 36.8 C Heart Rate 120 H 104 H Respiratory 18 18 Rate Blood Pressure 129/82 H 156/100 H O2 Saturation 99 95 Oxygen O2 Source Room air - EKG (time done) 1201 Rate: Rate (enter#) (110) Rhythm: Sinus tachycardia [place]: Normal Intervals: Normal MD Ischemia: Normal ST segments, Q waves (inferior). No: ST elevation c/w ischemia, ST depression Computer interpretation: Agree with computer - Labs Labs: Laboratory Tests 05/01/19 05/01/19 05/01/19 12:20 12:20 12:20 WBC 14.8 H RBC 4.54 L Hgb 14.3 Hct 42.1 MCV 92.7 MCH 31.5 H MCHC 34.0 RDW 12.1 Plt Count 286 MPV 11.1 Neut # (Auto) 10.9 H Lymph # (Auto) 2.5 [place] # (Auto) 1.0 Eos # (Auto) 0.2 Baso # (Auto) 0.1 Absolute Nucleated RBC 0.00 Nucleated RBC % 0.0 PT 14.1 H INR 1.3 H D-Dimer < 200.0 L Sodium 136 Potassium 4.3 Chloride 99 L Carbon Dioxide 27 Anion Gap 10.0 BUN 28 H Creatinine 0.9 Estimated GFR (MDRD) 90 Glucose 127 H Calcium 9.6 Total Bilirubin 0.7 AST 13 ALT 14 Alkaline Phosphatase 45 Troponin I High Sens Total Protein 7.9 Albumin 4.0 Globulin 3.9 Albumin/Globulin Ratio 1.0 Lipase 25 Ethyl Alcohol 7.1 Blood Type Antibody Screen 05/01/19 05/01/19 05/01/19 12:20 12:37 14:22 WBC RBC Hgb 12.7 L Hct 38.9 L MCV MCH MCHC RDW Plt Count MPV Neut # (Auto) Lymph # (Auto) [place] # (Auto) Eos # (Auto) Baso # (Auto) Absolute Nucleated RBC Nucleated RBC % PT INR D-Dimer Sodium Potassium Chloride Carbon Dioxide Anion Gap BUN Creatinine Estimated GFR (MDRD) Glucose Calcium Total Bilirubin AST ALT Alkaline Phosphatase Troponin I High Sens 3.4 Total Protein Albumin Globulin Albumin/Globulin Ratio Lipase Ethyl Alcohol Blood Type A POSITIVE Antibody Screen NEGATIVE - Rads (name of study) 1v chest Radiology: EMP read contemporaneously (normal) PD MEDICAL DECISION MAKING - ED course ED course: 48-year-old gentleman presents with atypical chest pain is been going on most of the day. He has a nonischemic EKG and a negative initial high-sensitivity troponin. He feels like his other symptoms, specifically the diaphoresis and fatigue are reminiscent of a prior GI bleed 2 years ago which was the only time he ever had a significant GI bleed. He had negative upper endoscopies per him prior to that but subsequent to that episode he never had another upper endoscopy. His initial hemoglobin was quite reassuring and as such I elected to keep him in the department to do a serial H&H after 2 hours which actually did drop a point half despite not receiving any IV fluids in the interim. This is concerning to me. As such a guaiac was done and is only trace guaiac positive. But I wonder if we are catching his GI bleed very early, where his symptoms have really manifested but no physical findings or lab findings have really manifested yet. As such I spoke with Dr. Zhu for observation at 2:35 PM. Departure - Departure Disposition: ED Place in Observation Clinical Impression: Atypical chest pain GI bleed Qualifiers: GI bleed type/associated pathology: unspecified gastrointestinal hemorrhage type Qualified Code(s): K92.2 - Gastrointestinal hemorrhage, unspecified Condition: Stable
[2019-05-01] MEDS ORDERED: NITROGLYCERIN 2% PASTE TOP STA (12:45)
[2019-05-01] MEDS ORDERED: MORPHINE 10 MG/ML VIAL IVP STA (12:45)
[2019-05-01 12:50] LABS: BASOPHILS # (AUTO) 0.1 10^3/uL (0.0-0.1); BASOPHILS % (AUTO) 0.6 %; EOSINOPHILS # (AUTO) 0.2 10^3/uL (0.0-0.7); EOSINOPHILS % (AUTO) 1.5 %; HGB - HEMOGLOBIN 14.3 g/dL (14.0-18.0); LYMPHOCYTES # (AUTO) 2.5 10^3/uL (1.5-3.5); LYMPHOCYTES % (AUTO) 17.1 %; MEAN CORPUSCULAR HEMOGLOBIN 31.5 pg (27.0-31.0); MEAN CORPUSCULAR VOLUME 92.7 fL (80.0-94.0); MEAN PLATELET VOLUME 11.1 fL (7.4-11.4); MONOCYTES % (AUTO) 6.4 %; NEUTROPHILS # (AUTO) 10.9 10^3/uL (1.5-6.6); NEUTROPHILS % (AUTO) 73.8 %; PLT - PLATELET COUNT 286 10^3/uL (130-450); RED BLOOD COUNT 4.54 10^6/uL (4.70-6.10); RED CELL DISTRIBUTION WIDTH 12.1 % (12.0-15.0); WHITE BLOOD COUNT 14.8 x10^3/uL (4.8-10.8)
[2019-05-01 13:00] LABS: D-DIMER < 200.0 ng/mL (200.0-255.0)
[2019-05-01 13:05] LABS: INR 1.3 (0.8-1.2); PT - PROTHROMBIN TIME 14.1 secs (9.9-12.6)
[2019-05-01 13:17] LABS: BILIRUBIN,TOTAL 0.7 mg/dL (0.2-1.0); CALCIUM 9.6 mg/dL (8.5-10.3); CREATININE 0.9 mg/dL (0.6-1.2); TOTAL PROTEIN 7.9 g/dL (6.7-8.2)
--- NOTE | 2019-05-01 13:38 | XRAY Report ---
Reason: chest pain Procedure Date: 05/01/2019 Accession Number: [id number] / [id number] Procedure: XR - Chest 1 View X-Ray CPT Code: 21490 FULL RESULT: EXAM: CHEST RADIOGRAPHY EXAM DATE: 05/01/2019 01:29 PM. CLINICAL HISTORY: Chest pain. COMPARISON: CHEST 1 VIEW 09/29/2017 8:50 AM. TECHNIQUE: 1 view. FINDINGS: Lungs/Pleura: No focal opacities evident. No pleural effusion. No pneumothorax. Mediastinum: Within exam limitations, the cardiomediastinal contour is normal. Other: None. IMPRESSION: No acute findings. RADIA
[2019-05-01] MEDS ORDERED: MORPHINE 2 MG/ML CARPUJECT IVP STA (14:14)
[2019-05-01 14:25] LABS: HGB - HEMOGLOBIN 12.7 g/dL (14.0-18.0)
[2019-05-01] MEDS ORDERED: PANTOPRAZOLE 40 MG VIAL IVP STA (14:33)
[2019-05-01] MEDS ORDERED: ONDANSETRON 4 MG/2 ML VIAL IVP PRN (14:53)
[2019-05-01] MEDS ORDERED: ACETAMINOPHEN 325 MG TABLET PO PRN (14:53)
[2019-05-01] MEDS ORDERED: ZOLPIDEM 5 MG TABLET PO PRN (14:53)
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
[2019-05-01] MEDS: MORPHINE 2 MG/ML CARPUJECT IVP PRN ×4 (15:49→22:01)
[2019-05-01] MEDS: SODIUM CHLORIDE FLUSH 0.9% 10 ML SYRINGE IVP SCH (16:45)
[2019-05-01] MEDS: HYDROcod/ACETAM 7.5 MG/325 MG TABLET PO SCH ×2 (16:45→21:16)
[2019-05-01] MEDS ORDERED: NITROGLYCERIN SL 0.4 MG TABLET SL PRN (16:53)
[2019-05-01] MEDS: SODIUM CHLORIDE FLUSH 0.9% 10 ML SYRINGE IVP PRN ×3 (17:52→22:01)
[2019-05-01 17:54] LABS: MUDS CUTOFF CONCENTRATIONS CUTOFF CONC BELOW:
[2019-05-01 18:11] LABS: BILIRUBIN,URINE NEGATIVE (NEGATIVE); GLUCOSE, URINE (UA) NEGATIVE (NEGATIVE); KETONES,URINE (UA) NEGATIVE (NEGATIVE); LEUKOCYTE ESTERASE, URINE NEGATIVE (NEGATIVE); NITRITE,URINE NEGATIVE (NEGATIVE); OCCULT BLOOD,URINE NEGATIVE (NEGATIVE); PROTEIN,URINE NEGATIVE (NEGATIVE); UROBILINOGEN,URINE 0.2 (NORMAL) E.U./dL (NORMAL)
[2019-05-01 18:21] LABS: CLARITY,URINE CLEAR (CLEAR)
[2019-05-01 18:22] LABS: BACTERIA,URINE None Seen /HPF (None Seen); RBC,URINE None Seen /HPF (0-5); SQUAMOUS EPITHELIAL CELL,UR NONE SEEN (<= Few)
[2019-05-01 18:23] LABS: AMPHETAMINE SCREEN,URINE NEGATIVE (NEGATIVE); BENZODIAZEPINES SCREEN, URINE NEGATIVE (NEGATIVE); COCAINE SCREEN URINE NEGATIVE (NEGATIVE); METHADONE SCREEN, URINE NEGATIVE (NEGATIVE); METHAMPHETAMINES SCREEN, URINE NEGATIVE (NEGATIVE); OPIATE SCREEN, URINE POSITIVE (NEGATIVE); OXYCODONE SCREEN, URINE NEGATIVE (NEGATIVE); PROPOXYPHENE SCREEN, URINE NEGATIVE (NEGATIVE); TRICYCLIC ANTIDEPRESSANT,URINE POSITIVE (NEGATIVE)
[2019-05-01 20:09] LABS: HGB - HEMOGLOBIN 12.3 g/dL (14.0-18.0)
[2019-05-01] MEDS ORDERED: AMITRIPTYLINE 25 MG TABLET PO SCH (21:00)
[2019-05-01] MEDS ORDERED: ZOLPIDEM 5 MG TABLET PO SCH (21:00)
[2019-05-02] MEDS: SODIUM CHLORIDE FLUSH 0.9% 10 ML SYRINGE IVP SCH ×2 (00:39→08:06)
[2019-05-02] MEDS: MORPHINE 2 MG/ML CARPUJECT IVP PRN ×4 (00:39→10:38)
[2019-05-02 02:31] LABS: HGB - HEMOGLOBIN 11.7 g/dL (14.0-18.0)
[2019-05-02] MEDS: SODIUM CHLORIDE FLUSH 0.9% 10 ML SYRINGE IVP PRN ×3 (05:40→10:39)
[2019-05-02 05:44] LABS: BASOPHILS # (AUTO) 0.1 10^3/uL (0.0-0.1); BASOPHILS % (AUTO) 0.6 %; EOSINOPHILS # (AUTO) 0.4 10^3/uL (0.0-0.7); EOSINOPHILS % (AUTO) 2.9 %; HGB - HEMOGLOBIN 12.1 g/dL (14.0-18.0); LYMPHOCYTES # (AUTO) 2.2 10^3/uL (1.5-3.5); LYMPHOCYTES % (AUTO) 17.9 %; MEAN CORPUSCULAR HEMOGLOBIN 31.1 pg (27.0-31.0); MEAN CORPUSCULAR HGB CONC 33.8 g/dL (32.0-36.0); MONOCYTES # (AUTO) 0.9 10^3/uL (0.0-1.0); MONOCYTES % (AUTO) 7.3 %; NEUTROPHILS # (AUTO) 8.7 10^3/uL (1.5-6.6); NEUTROPHILS % (AUTO) 70.8 %; PLT - PLATELET COUNT 252 10^3/uL (130-450); RED BLOOD COUNT 3.89 10^6/uL (4.70-6.10); RED CELL DISTRIBUTION WIDTH 12.4 % (12.0-15.0); WHITE BLOOD COUNT 12.2 x10^3/uL (4.8-10.8)
[2019-05-02 05:50] LABS: CALCIUM 8.7 mg/dL (8.5-10.3)
[2019-05-02] MEDS ORDERED: PANTOPRAZOLE 40 MG VIAL IVP SCH (07:00)
[2019-05-02 08:22] VITALS: BP 119/82
[2019-05-02] MEDS ORDERED: ENOXAPARIN 40 MG/0.4 ML SYRINGE SUBQ SCH (09:00)
[2019-05-02] MEDS ORDERED: POLYETHYLENE GLYCOL 3350 17 GM PACKET PO SCH (09:00)
[2019-05-02] MEDS: HYDROcod/ACETAM 7.5 MG/325 MG TABLET PO SCH (09:31)
--- NOTE | 2019-05-02 11:09 | Discharge Plan ---
Discharge Plan Problem Reviewed?: Yes Disposition: Home, Self Care Condition: Stable Diet: Regular Activity Restrictions: Activity as Tolerated Shower Restrictions: No (fall precaution) Instruction Topics: ED Chest Pain NonCardiac, ED Chest Pain Atypical Unkn Cause, Bleeding Gastrointestinal Health Concerns: atypical chest pain, GI bleed Plan of Treatment: your three times of trepononin test were negative, EKG was negative for ST variation, and you are hemodynamic stable. you likely has kind of atypical chest pain. Your HGB increased. you has no bowel movement yet. you likely have no GI bleed. Should your symptoms return or worsen, you may present ER, call 911 for help Care Goals: stabilization and improvement of your medical conditions Assessment: assessment as the above Additional Instructions or Follow Up instructions: you may followup your PCP in two weeks. Should your symptoms return or worsen, you may present ER, call 911 for help No Smoking: If you smoke, Please STOP! Call for help.
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
== END 2019-05-02 12:02 | disposition home or self-care (01) ==
LOC: ED 11:53 → MS2 14:53
PROVIDERS: ADMIT Nurse Practitioner Gerontology; ATTEND Nurse Practitioner Gerontology
DX: R07.89 Other chest pain (principal); R19.5 Other fecal abnormalities; D64.9 Anemia, unspecified; G89.21 Chronic pain due to trauma; R10.84 Generalized abdominal pain; S31.60 Unspecified open wound of abdominal wall with penetration into peritoneal cavity; M54.9 Dorsalgia, unspecified; I10 Essential (primary) hypertension; F41.9 Anxiety disorder, unspecified; F32.9 Major depressive disorder, single episode, unspecified; Z98.818 Other dental procedure status; Z87.19 Personal history of other diseases of the digestive system; Z79.899 Other long term (current) drug therapy; Z79.891 Long term (current) use of opiate analgesic; Z82.49 Family history of ischemic heart disease and other diseases of the circulatory system; Z86.39 Personal history of other endocrine, nutritional and metabolic disease
CPT/HCPCS: 36415; 71045; 80048; 80053; 81001; 83690; 83735; 84484; 85014; 85018; 85025; 85379; 85610; 86850; 86900; 86901; 93005; 96374; 96375; 96376; 99285; A9270; G0378; 80306; 80320; 82272; 87086

== ENCOUNTER 2019-05-04 10:05 | Observation (INO) | payer MEDICARE, MEDICAID ==
[2019-05-04 10:40] LABS: BASOPHILS # (AUTO) 0.1 10^3/uL (0.0-0.1); BASOPHILS % (AUTO) 1.1 %; EOSINOPHILS # (AUTO) 0.2 10^3/uL (0.0-0.7); EOSINOPHILS % (AUTO) 2.1 %; HGB - HEMOGLOBIN 11.2 g/dL (14.0-18.0); LYMPHOCYTES # (AUTO) 2.1 10^3/uL (1.5-3.5); LYMPHOCYTES % (AUTO) 22.6 %; MEAN CORPUSCULAR HEMOGLOBIN 30.4 pg (27.0-31.0); MEAN CORPUSCULAR HGB CONC 32.7 g/dL (32.0-36.0); MEAN CORPUSCULAR VOLUME 93.2 fL (80.0-94.0); MEAN PLATELET VOLUME 10.7 fL (7.4-11.4); MONOCYTES # (AUTO) 0.5 10^3/uL (0.0-1.0); MONOCYTES % (AUTO) 5.2 %; NEUTROPHILS # (AUTO) 6.4 10^3/uL (1.5-6.6); NEUTROPHILS % (AUTO) 68.6 %; PLT - PLATELET COUNT 404 10^3/uL (130-450); RED BLOOD COUNT 3.68 10^6/uL (4.70-6.10); RED CELL DISTRIBUTION WIDTH 12.1 % (12.0-15.0); WHITE BLOOD COUNT 9.3 x10^3/uL (4.8-10.8)
[2019-05-04 10:58] LABS: ALBUMIN 3.6 g/dL (3.2-5.5); ALBUMIN/GLOBULIN RATIO 0.9 (1.0-2.2); BILIRUBIN,TOTAL 0.3 mg/dL (0.2-1.0); CALCIUM 9.3 mg/dL (8.5-10.3); CREATININE 1.1 mg/dL (0.6-1.2); TOTAL PROTEIN 7.7 g/dL (6.7-8.2)
[2019-05-04 12:39] LABS: INR 1.3 (0.8-1.2)
[2019-05-04 12:46] LABS: PARTIAL THROMBOPLASTIN TIME 40.3 secs (24.9-33.3)
[2019-05-04] MEDS ORDERED: PANTOPRAZOLE 40 MG VIAL IVP STA (12:53)
--- NOTE | 2019-05-04 12:57 | ED Physician Documentation ---
PD HPI ABD PAIN - Stated complaint Stated Complaint: BLOOD IN STOOL - Chief complaint Chief Complaint: Abd Pain - History obtained from History obtained from: Patient - History of Present Illness Timing - onset: Yesterday Timing - duration: Days (2) Timing - details: Gradual onset Pain level max: 6 Quality: Aching, Pain Location: Periumbilical Radiation: No: Chest, , Lower back, Left flank, Left shoulder, Right flank, Right shoulder, Upper back Improved by: Other (nothing) Worsened by: Eating Associated symptoms: Melena (dark tarry stools per pt), Hematochezia (BRBPR on the toilet paper). No: Fever, Nausea, Vomiting, Hematemesis, Diarrhea, Constipation - Additional information Additional information: Patient recently admitted for GI bleed and chest pain. d/c home with stable H/H. Last colonoscopy 2016 showed internal hemorrhoids and mild diverticulitis. Has been taking ibuprofen for dental pain and was told by hospitalist to take ibuprofen for chest pain. denies EtOH use. Marijuana 1-2x per month. worse abd pain today. no fevers. no chills. Review of Systems Ten Systems: 10 systems reviewed and negative Constitutional: denies: Fever, Chills Nose: denies: Rhinorrhea / runny nose, Congestion GI: reports: Bloody / black stool. denies: Vomiting, Diarrhea : denies: Dysuria, Frequency, Hesitancy, Unable to Void Skin: denies: Rash Musculoskeletal: denies: Neck pain, Back pain Neurologic: denies: Headache PD PAST MEDICAL HISTORY - Past Medical History Cardiovascular: Hypertension Respiratory: None Neuro: None Endocrine/Autoimmune: None GI: Pancreatitis : None HEENT: None Psych: Depression, Anxiety Musculoskeletal: Chronic back pain Derm: None - Past Surgical History Past Surgical History: Yes General: Other - Present Medications Home Medications: Ambulatory Orders Medication Instructions Recorded Confirmed Amitriptyline [Elavil] 50 mg PO QPM 11/12/17 05/01/19 Hydrocodone/Acetaminophen 1 tab PO QID 11/12/17 05/01/19 [Hydrocodone-Acetamin 7.5-325] Zolpidem [Ambien] 10 mg PO HS 05/01/19 05/01/19 - Allergies Allergies/Adverse Reactions: Allergies Allergy/AdvReac Type Severity Reaction Status Date / Time diphenhydramine Allergy Rash Verified 05/01/19 12:04 haloperidol [From Haldol] AdvReac Anxiety Verified 05/01/19 12:04 lorazepam [From Ativan] AdvReac Hallucinati Verified 05/01/19 12:04 ons - Social History Does the pt smoke?: No Smoking Status: Former smoker Does the pt drink ETOH?: No Does the pt have substance abuse?: No - Immunizations Immunizations are current?: Yes - POLST Patient has POLST: No PD ED PE NORMAL - Vitals Vital signs reviewed: Yes - General General: Alert and oriented X 3, No acute distress - HEENT HEENT: Moist mucous membranes - Neck Neck: Supple, no meningeal sign - Cardiac Cardiac: RRR - Respiratory Respiratory: No respiratory distress, Clear bilaterally - Abdomen Abdomen: Soft, Other (Mild diffuse tenderness to palpation without peritoneal signs.) - Rectal Rectal: Other (Dark stool in rectal vault. Guaiac positive. manager inventory control passed) - Derm Derm: Warm and dry - Extremities Extremities: No edema - Neuro Neuro: Alert and oriented X 3, No motor deficit, No sensory deficit - Psych Psych: Normal mood, Normal affect Results - Vitals Vitals: Vital Signs - 24 hr 05/04/19 05/04/19 05/04/19 10:17 12:13 13:36 Temperature 36.1 C L Heart Rate 118 H 110 H 87 Respiratory 20 18 18 Rate Blood Pressure 136/88 H 131/95 H 134/86 H O2 Saturation 100 100 98 Oxygen O2 Source Room air - Labs Labs: Laboratory Tests 05/04/19 05/04/19 05/04/19 10:25 10:25 10:25 WBC 9.3 RBC 3.68 L Hgb 11.2 L Hct 34.3 L MCV 93.2 MCH 30.4 MCHC 32.7 RDW 12.1 Plt Count 404 MPV 10.7 Neut # (Auto) 6.4 Lymph # (Auto) 2.1 [place] # (Auto) 0.5 Eos # (Auto) 0.2 Baso # (Auto) 0.1 Absolute Nucleated RBC 0.00 Nucleated RBC % 0.0 PT INR APTT Sodium 135 Potassium 4.2 Chloride 96 L Carbon Dioxide 27 Anion Gap 12.0 BUN 29 H Creatinine 1.1 Estimated GFR (MDRD) 71 L Glucose 135 H Calcium 9.3 Total Bilirubin 0.3 AST 13 ALT 13 Alkaline Phosphatase 39 L Total Protein 7.7 Albumin 3.6 Globulin 4.1 Albumin/Globulin Ratio 0.9 L Lipase 31 Urine Color Urine Clarity Urine pH Ur Specific [place]oret Urine Protein Urine Glucose (UA) Urine Ketones Urine Occult Blood Urine Nitrite Urine Bilirubin Urine Urobilinogen Ur Leukocyte Esterase Ur Microscopic Review Urine Culture Comments Blood Type A POSITIVE Antibody Screen NEGATIVE 05/04/19 05/04/19 05/04/19 11:00 14:45 15:05 WBC RBC Hgb 11.2 L 9.3 L Hct 34.0 L 27.8 L MCV MCH MCHC RDW Plt Count MPV Neut # (Auto) Lymph # (Auto) [place] # (Auto) Eos # (Auto) Baso # (Auto) Absolute Nucleated RBC Nucleated RBC % PT INR APTT Sodium Potassium Chloride Carbon Dioxide Anion Gap BUN Creatinine Estimated GFR (MDRD) Glucose Calcium Total Bilirubin AST ALT Alkaline Phosphatase Total Protein Albumin Globulin Albumin/Globulin Ratio Lipase Urine Color YELLOW Urine Clarity CLEAR Urine pH 5.0 Ur Specific Amoret <=1.005 Urine Protein NEGATIVE Urine Glucose (UA) NEGATIVE Urine Ketones NEGATIVE Urine Occult Blood NEGATIVE Urine Nitrite NEGATIVE Urine Bilirubin NEGATIVE Urine Urobilinogen 0.2 (NORMAL) Ur Leukocyte Esterase NEGATIVE Ur Microscopic Review NOT INDICATED Urine Culture Comments NOT INDICATED Blood Type Antibody Screen 05/04/19 Unknown WBC RBC Hgb Hct MCV MCH MCHC RDW Plt Count MPV Neut # (Auto) Lymph # (Auto) [place] # (Auto) Eos # (Auto) Baso # (Auto) Absolute Nucleated RBC Nucleated RBC % PT 14.0 H INR 1.3 H APTT 40.3 H Sodium Potassium Chloride Carbon Dioxide Anion Gap BUN Creatinine Estimated GFR (MDRD) Glucose Calcium Total Bilirubin AST ALT Alkaline Phosphatase Total Protein Albumin Globulin Albumin/Globulin Ratio Lipase Urine Color Urine Clarity Urine pH Ur Specific [place] Urine Protein Urine Glucose (UA) Urine Ketones Urine Occult Blood Urine Nitrite Urine Bilirubin Urine Urobilinogen Ur Leukocyte Esterase Ur Microscopic Review Urine Culture Comments Blood Type Antibody Screen - Rads (name of study) CT abd/pelvis Radiology: Prelim report reviewed, EMP read contemporaneously, See rad report (Nonspecific prominence of mesenteric lymph nodes, diffuse distribution) PD MEDICAL DECISION MAKING - ED course Complexity details: reviewed old records, reviewed results, re-evaluated patient, considered differential, d/w patient ED course: 48-year-old male presents to the emergency department with melena today. Likely secondary to ibuprofen use. Given Protonix and IV fluids. Repeat H&H was decreased by 2g. Discussed the case with Dr. Alvares, general surgery on-call who will consult on the patient. Discussed the case with Dr. Murguia, hospitalist accepts for admission. This document was made in part using voice recognition software. While efforts are made to proofread this document, sound alike and grammatical errors may occur. Departure - Departure Disposition: 66 [facility] DC/Xfer Clinical Impression: GI bleed Qualifiers: GI bleed type/associated pathology: melena Qualified Code(s): K92.1 - Melena Condition: Stable
[2019-05-04] MEDS ORDERED: SODIUM CHLORIDE 0.9% 1,000 ML IV ONE ×2 (12:58)
[2019-05-04] MEDS ORDERED: IOVERSOL 320 100 ML VIAL IVP ONE ×2 (13:06→16:06)
[2019-05-04] MEDS ORDERED: MORPHINE 2 MG/ML CARPUJECT IVP STA ×2 (13:18→15:30)
--- NOTE | 2019-05-04 13:43 | CT Report ---
Reason: diffuse abd pain, GI bleed Procedure Date: 05/04/2019 Accession Number: [id number] / [id number] Procedure: CT - Abdomen/Pelvis W CPT Code: FULL RESULT: EXAM: CT ABDOMEN AND PELVIS EXAM DATE: 05/04/2019 01:25 PM. CLINICAL HISTORY: Diffuse abdomen pain, GI bleed. COMPARISONS: ABDOMEN/PELVIS W/ 05/07/2015 4:17 PM. TECHNIQUE: Routine helical CT imaging was performed through the abdomen and pelvis. IV contrast: Opti-320 100 mL. Enteric contrast: No. Reconstructions: Coronal and sagittal. In accordance with CT protocol optimization, one or more of the following dose reduction techniques were utilized for this exam: automated exposure control, adjustment of mA and/or KV based on patient size, or use of iterative reconstructive technique. FINDINGS: Lung Bases: Unremarkable. Liver: Normal. No masses. Gallbladder/Bile Ducts: Unremarkable. Spleen: Normal. Pancreas: Normal. Adrenal Glands: Normal. Kidneys: Normal. No masses or hydronephrosis. Peritoneal Cavity/Bowel: There is no bowel obstruction. There is no free fluid or free air. Prominent subcentimeter mesenteric lymph nodes do not meet size criteria. The appendix is well visualized and normal. Pelvic Organs: Normal. The bladder and visualized pelvic organs are within normal limits. Vasculature: Atherosclerosis without abdominal aortic aneurysm. Bones: No significant abnormality. Other: None. IMPRESSION: Nonspecific prominence of mesenteric lymph nodes, diffuse distribution. RADIA
[2019-05-04 14:39] LABS: HGB - HEMOGLOBIN 11.2 g/dL (14.0-18.0)
[2019-05-04 14:54] LABS: BILIRUBIN,URINE NEGATIVE (NEGATIVE); CLARITY,URINE CLEAR (CLEAR); GLUCOSE, URINE (UA) NEGATIVE (NEGATIVE); KETONES,URINE (UA) NEGATIVE (NEGATIVE); LEUKOCYTE ESTERASE, URINE NEGATIVE (NEGATIVE); NITRITE,URINE NEGATIVE (NEGATIVE); OCCULT BLOOD,URINE NEGATIVE (NEGATIVE); PROTEIN,URINE NEGATIVE (NEGATIVE); UROBILINOGEN,URINE 0.2 (NORMAL) E.U./dL (NORMAL)
[2019-05-04] MEDS ORDERED: LIDOCAINE VISCOUS 2% 15 ML UDC MM STA (15:02)
[2019-05-04] MEDS ORDERED: MAG HYDROX/AL HYDROX/SIMETH 30 ML UDC PO STA (15:02)
[2019-05-04] MEDS ORDERED: SUCRALFATE 1 GM/10 ML UDC PO STA (15:02)
[2019-05-04] MEDS ORDERED: FAMOTIDINE 20 MG TABLET PO STA (15:02)
[2019-05-04 15:08] LABS: HGB - HEMOGLOBIN 9.3 g/dL (14.0-18.0)
[2019-05-04] MEDS ORDERED: ONDANSETRON 4 MG/2 ML VIAL IVP STA (15:15)
[2019-05-04] MEDS ORDERED: ONDANSETRON 4 MG/2 ML VIAL IVP PRN (16:00)
[2019-05-04] MEDS ORDERED: ACETAMINOPHEN 325 MG TABLET PO PRN (16:00)
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
--- NOTE | 2019-05-04 16:29 | ANESTHESIA ---
Pre-Anesthesia VS, & Labs - Diagnosis Abd pain, GI bleed - Procedure EGD Vital Signs: Temp Pulse Resp BP Pulse Ox 36.1 C L 87 18 134/86 H 98 05/04/19 10:17 05/04/19 13:36 05/04/19 13:36 05/04/19 13:36 05/04/19 13:36 Height 6 ft 4 in Weight (kg) 90.718 kg Body Mass Index 24.3 - Lab Results Current Lab Results: Laboratory Tests 05/04/19 : PT 14.0 H, INR 1.3 H, APTT 40.3 H 05/04/19 15:05: Hgb 9.3 L, Hct 27.8 L 05/04/19 11:00: Hgb 11.2 L, Hct 34.0 L 05/04/19 10:25: Blood Type A POSITIVE, Antibody Screen NEGATIVE 05/04/19 10:25: Sodium 135, Potassium 4.2, Chloride 96 L, Carbon Dioxide 27, Anion Gap 12.0, BUN 29 H, Creatinine 1.1, Estimated GFR (MDRD) 71 L, Glucose 135 H, Calcium 9.3, Total Bilirubin 0.3, AST 13, ALT 13, Alkaline Phosphatase 39 L, Total Protein 7.7, Albumin 3.6, Globulin 4.1, Albumin/Globulin Ratio 0.9 L, Lipase 31 05/04/19 10:25: WBC 9.3, RBC 3.68 L, Hgb 11.2 L, Hct 34.3 L, MCV 93.2, MCH 30.4, MCHC 32.7, RDW 12.1, Plt Count 404, MPV 10.7, Neut # (Auto) 6.4, Lymph # (Auto) 2.1, Bond # (Auto) 0.5, Eos # (Auto) 0.2, Baso # (Auto) 0.1, Absolute Nucleated RBC 0.00, Nucleated RBC % 0.0 Fish Bones: 05/04/19 15:05 05/04/19 10:25 Home Medications and Allergies Active Medications Acetaminophen (Tylenol) 650 mg PO Q4HR PRN PRN Reason: Pain 1 to 4 Sodium Chloride (Normal Saline 0.9%) 1,000 mls @ 150 mls/hr IV .Q6H40M ONE Stop: 05/04/19 19:37 Last Admin: 05/04/19 14:49 Dose: 150 mls/hr Sodium Chloride (Normal Saline 0.9%) 1,000 mls @ 100 mls/hr IV .Q10H [place] Morphine Sulfate (Morphine (Carpuject)) 2 mg IVP Q2HR PRN PRN Reason: Pain 8 to 10 Ondansetron HCl (Zofran Inj) 4 mg IVP Q6HR PRN PRN Reason: Nausea / Vomiting Oxycodone HCl (Roxicodone) 5 mg PO Q4HR PRN PRN Reason: Pain 5 to 7 Pantoprazole Sodium (Protonix) 40 mg IVP BID [place] Polyethylene Glycol (Miralax) 17 gm PO DAILY [place] Sodium Chloride (Normal Saline Flush 0.9%) 10 ml IVP PRN PRN PRN Reason: NEEDED PER PROVIDER ORDERS Sodium Chloride (Normal Saline Flush 0.9%) 10 ml IVP 0100,0900,1700 [place] Zolpidem Tartrate (Ambien) 5 mg PO QPM PRN PRN Reason: Insomnia Amitriptyline [Elavil] 50 mg PO QPM 11/12/17 Hydrocodone/Acetaminophen [Hydrocodone-Acetamin 7.5-325] 1 tab PO QID 11/12/17 Zolpidem [Ambien] 10 mg PO HS 05/01/19 Allergies/Adverse Reactions: Allergies Allergy/AdvReac Type Severity Reaction Status Date / Time diphenhydramine Allergy Rash Verified 05/01/19 12:04 haloperidol [From Haldol] AdvReac Anxiety Verified 05/01/19 12:04 lorazepam [From Ativan] AdvReac Hallucinati Verified 05/01/19 12:04 ons Anes History & Medical History - Anesthetic History Anesthesia Complications: reports: No previous complications Family history of Anesthesia Complications: Denies Family history of Malignant Hyperthermia: Denies - Medical History Cardiovascular: reports: Hypertension Pulmonary: reports: None Gastrointestinal: reports: Pancreatitis Urinary: reports: None Neuro: reports: None Musculoskeletal: reports: Chronic back pain Endocrine/Autoimmune: reports: None Blood Disorders: reports: None Skin: reports: None Smoking Status: Former smoker Psychosocial: reports: No issues indicated - Surgical History General: Other Exam General: Alert, Oriented x3, Cooperative Dental: WNL Mouth Openin Fingerbreadth Neck Mobility: Normal Mallampati classification: II Thyromental Distance: greater than 6 cm Respiratory: Lungs clear Cardiovascular: Regular rate Neurological: Normal speech Mental/Cognitive Status: Alert/Oriented X3 Cognitive Status: Within normal limits Plan Anesthesia Type: Total IV Consent for Procedure(s) Verified and Reviewed: Yes Code Status: Attempt Resuscitation ASA classification: 2-Mild systemic disease Is this case an emergency?: Yes
[2019-05-04] MEDS ORDERED: EPINEPHrine 1 MG/ML AMP ONE (16:36)
[2019-05-04] MEDS ORDERED: SODIUM CHLORIDE 0.9% 10 ML ONE (16:36)
[2019-05-04] MEDS ORDERED: LIDO GARGLE 30 ML BOTTLE ONE (16:46)
[2019-05-04] MEDS ORDERED: LACTATED RINGERS 1,000 ML IV ONE ×2 (16:48→17:29)
[2019-05-04] MEDS ORDERED: BENZOCAINE/TETRACAINE/BUTAMBEN 20 GM TOP ONE (17:00)
[2019-05-04] MEDS ORDERED: THROMBIN (BOVINE) 5,000 UNIT VIAL TOP ONE (17:10)
[2019-05-04] MEDS: fentaNYL 100 MCG/2 ML VIAL ONE ×2 (17:30→17:45)
--- NOTE | 2019-05-04 17:44 | PROCEDURE REPORT ---
Hospitalist Procedure Note - Procedure Note Procedure Note: EGD: 1. non bleeding antral ulcer with clean base; biopsied; 2. mild antral gastropathy; biopsied and JENN test for H. pylori. 3. postbulbar duodenal ulcer with adherent clot; injected with combination of epinephrine and thrombin, then cauterized with bicap cautery for prophylaxis against rebleeding. See formal [facility] report for details.
[2019-05-04] MEDS ORDERED: ZOLPIDEM 5 MG TABLET PO PRN ×2 (18:38→21:00)
[2019-05-04] MEDS: SODIUM CHLORIDE FLUSH 0.9% 10 ML SYRINGE IVP SCH (18:46)
[2019-05-04] MEDS: MORPHINE 2 MG/ML CARPUJECT IVP PRN ×2 (18:51→21:07)
[2019-05-04] MEDS: SODIUM CHLORIDE FLUSH 0.9% 10 ML SYRINGE IVP PRN (18:52)
[2019-05-04] MEDS ORDERED: AMITRIPTYLINE 25 MG TABLET PO SCH (21:00)
[2019-05-04 21:07] LABS: HGB - HEMOGLOBIN 8.5 g/dL (14.0-18.0)
[2019-05-04] MEDS: PANTOPRAZOLE 40 MG VIAL IVP SCH (21:07)
[2019-05-04] MEDS: oxyCODONE 5 MG TABLET PO PRN (22:07)
[2019-05-05] MEDS: MORPHINE 2 MG/ML CARPUJECT IVP PRN ×4 (00:01→10:22)
[2019-05-05] MEDS: SODIUM CHLORIDE FLUSH 0.9% 10 ML SYRINGE IVP SCH ×2 (00:01→08:16)
[2019-05-05] MEDS ORDERED: SODIUM CHLORIDE 0.9% 1,000 ML IV SCH (01:00)
[2019-05-05] MEDS: SODIUM CHLORIDE FLUSH 0.9% 10 ML SYRINGE IVP PRN ×2 (03:17→10:23)
[2019-05-05 05:34] LABS: BASOPHILS # (AUTO) 0.1 10^3/uL (0.0-0.1); EOSINOPHILS # (AUTO) 0.3 10^3/uL (0.0-0.7); EOSINOPHILS % (AUTO) 3.9 %; HGB - HEMOGLOBIN 8.2 g/dL (14.0-18.0); LYMPHOCYTES # (AUTO) 2.7 10^3/uL (1.5-3.5); MEAN CORPUSCULAR HEMOGLOBIN 30.3 pg (27.0-31.0); MEAN CORPUSCULAR HGB CONC 31.8 g/dL (32.0-36.0); MEAN CORPUSCULAR VOLUME 95.2 fL (80.0-94.0); MEAN PLATELET VOLUME 10.6 fL (7.4-11.4); MONOCYTES # (AUTO) 0.4 10^3/uL (0.0-1.0); MONOCYTES % (AUTO) 6.1 %; NEUTROPHILS # (AUTO) 3.7 10^3/uL (1.5-6.6); NEUTROPHILS % (AUTO) 50.6 %; PLT - PLATELET COUNT 286 10^3/uL (130-450); RED BLOOD COUNT 2.71 10^6/uL (4.70-6.10); RED CELL DISTRIBUTION WIDTH 12.1 % (12.0-15.0); WHITE BLOOD COUNT 7.2 x10^3/uL (4.8-10.8)
[2019-05-05 05:41] LABS: CALCIUM 8.4 mg/dL (8.5-10.3)
[2019-05-05 07:48] LABS: ABSOLUTE RETICS # AUTO 0.085 10^6/uL (0.020-0.110); RED BLOOD COUNT 2.71 10^6/uL (4.70-6.10)
[2019-05-05 08:13] LABS: % IRON SATURATION 16 % (20-50); IRON 47 ug/dL (45-182); TOTAL IRON BINDING CAPACITY 291 ug/dL (250-450); TRANSFERRIN 208 mg/dL (180-329)
[2019-05-05] MEDS: PANTOPRAZOLE 40 MG VIAL IVP SCH (08:16)
[2019-05-05 08:19] LABS: FERRITIN 140.7 ng/mL (23.9-336.2)
[2019-05-05] MEDS ORDERED: POLYETHYLENE GLYCOL 3350 17 GM PACKET PO SCH (09:00)
--- NOTE | 2019-05-05 10:42 | PROVIDER PROGRESS NOTE ---
Assessment/Plan - Problem List (1) GI bleed Qualifiers: GI bleed type/associated pathology: duodenal ulcer Qualified Code(s): K26.4 - Chronic or unspecified duodenal ulcer with hemorrhage Assessment/Plan: clinically resolving with no evidence of active/recurrent bleeding; rec: if remains stable, consider d/c home this pm or tomorrow on high dose oral PPI therapy, avoidance of NSAIDs, and outpt f/u in my office in 1-2 weeks. Pt will need repeat EGD in 2 months to document satisfactory healing of his gastric and duodenal ulcers. - Current Meds Current Meds: Current Medications Generic Name Dose Route Start Last Admin Trade Name Freq PRN Reason Stop Dose Admin Amitriptyline HCl 50 mg 05/04/19 21:00 05/04/19 21:07 Elavil PO 50 mg QPM [place] Administration Morphine Sulfate 2 mg 05/04/19 16:00 05/05/19 10:22 Morphine (Carpuject) IVP 2 mg Q2HR PRN Administration Pain 8 to 10 Ondansetron HCl 4 mg 05/04/19 16:00 05/04/19 16:31 Zofran Inj IVP 4 mg Q6HR PRN Administration Nausea / Vomiting Oxycodone HCl 5 mg 05/04/19 16:00 05/04/19 22:07 Roxicodone PO 5 mg Q4HR PRN Administration Pain 5 to 7 Pantoprazole Sodium 40 mg 05/04/19 21:00 05/05/19 08:16 Protonix IVP 40 mg BID [place] Administration Polyethylene Glycol 17 gm 05/05/19 09:00 05/05/19 08:16 Miralax PO 17 gm DAILY [place] Administration Sodium Chloride 10 ml 05/04/19 16:00 05/05/19 10:23 Normal Saline Flush 0.9% IVP 10 ml PRN PRN Administration NEEDED PER PROVIDER ORDERS Sodium Chloride 10 ml 05/04/19 17:00 05/05/19 08:16 Normal Saline Flush 0.9% IVP 10 ml 0100,[id number],1700 [place] Administration Zolpidem Tartrate 5 mg 05/04/19 21:00 05/04/19 21:59 Ambien PO 5 mg QPM PRN Administration Insomnia Zolpidem Tartrate 10 mg 05/04/19 18:38 08/26/19 22:06 Ambien PO 5 mg HS PRN Administration Insomnia - Lab Result Fish Bone Diagrams: 05/05/19 11:15 05/05/19 05:22 Other Lab Results: JENN test negative - Additional Planning Condition/Complexity: Improved My Orders: My Active Orders 05/04/19 17:22 JENN TEST [RAPID] Stat Plan Discussed with:: Patient Time Spent: 15-30 minutes Subjective - Subjective Patient Reports: Feeling Better, Resting Comfortably, Abdominal Pain (c/o mild epigastric discomfort; no N/V, no bm since admission yesterday) Objective Vital Signs: Vital Signs - 24 hr 05/04/19 05/04/19 05/04/19 12:13 13:36 17:31 Temperature 36.7 C Heart Rate 110 H 87 91 Heart Rate [ Brachial] Respiratory 18 18 21 Rate Blood Pressure 131/95 H 134/86 H 138/90 H Blood Pressure [Left Brachial artery] Blood Pressure [Right Brachial artery] O2 Saturation 100 98 100 05/04/19 05/04/19 05/04/19 17:35 17:50 17:53 Temperature 36.9 C 37.0 C Heart Rate 88 85 81 Heart Rate [ Brachial] Respiratory 19 15 12 Rate Blood Pressure 140/78 H 110/88 H 123/81 H Blood Pressure [Left Brachial artery] Blood Pressure [Right Brachial artery] O2 Saturation 98 100 100 05/04/19 05/04/19 05/04/19 18:01 19:45 20:45 Temperature 36.6 C 36.6 C 36.5 C Heart Rate 85 Heart Rate [ 71 77 Brachial] Respiratory 20 16 20 Rate Blood Pressure Blood Pressure 124/82 H 102/64 [Left Brachial artery] Blood Pressure [Right Brachial artery] O2 Saturation 100 99 97 05/04/19 05/05/19 05/05/19 23:55 03:10 07:45 Temperature 36.4 C L 36.5 C 36.4 C L Heart Rate Heart Rate [ 89 74 75 Brachial] Respiratory 16 16 18 Rate Blood Pressure Blood Pressure [Left Brachial artery] Blood Pressure 109/81 H 115/57 L 119/70 [Right Brachial artery] O2 Saturation 98 97 97 Oxygen O2 Source Room air I&O (Last 24 Hrs): Intake and Output Totals x24h 05/03/19 05/04/19 05/05/19 23:59 23:59 23:59 Intake Total 2600 240 Output Total 700 500 Balance 1900 -260 General: Alert, Oriented x3, Cooperative, No acute distress Abdomen: Soft, No tenderness, No hepatospenomegaly, No masses - Results Results: Laboratory Results WBC 7.2 x10^3/uL (4.8-10.8) 05/05/19 05:22 RBC 2.71 10^6/uL (4.70-6.10) L 05/05/19 05:22 Hgb 8.2 g/dL (14.0-18.0) L 05/05/19 05:22 Hct 25.8 % (42.0-52.0) L 05/05/19 05:22 MCV 95.2 fL (80.0-94.0) H 05/05/19 05:22 MCH 30.3 pg (27.0-31.0) 05/05/19 05:22 MCHC 31.8 g/dL (32.0-36.0) L 05/05/19 05:22 RDW 12.1 % (12.0-15.0) 05/05/19 05:22 Plt Count 286 10^3/uL (130-450) 05/05/19 05:22 MPV 10.6 fL (7.4-11.4) 05/05/19 05:22 Reticulocyte % (Auto) 3.13 % (0.5-2.3) H 05/05/19 05:22 Neut # (Auto) 3.7 10^3/uL (1.5-6.6) 05/05/19 05:22 Lymph # (Auto) 2.7 10^3/uL (1.5-3.5) 05/05/19 05:22 [place] # (Auto) 0.4 10^3/uL (0.0-1.0) 05/05/19 05:22 Eos # (Auto) 0.3 10^3/uL (0.0-0.7) 05/05/19 05:22 Baso # (Auto) 0.1 10^3/uL (0.0-0.1) 05/05/19 05:22 Absolute Nucleated RBC 0.00 x10^3/uL 05/05/19 05:22 Nucleated RBC % 0.0 /100WBC 05/05/19 05:22 Absolute Retic 0.085 10^6/uL (0.020-0.110) 05/05/19 05:22 PT 14.0 secs (9.9-12.6) H 05/04/19 Unknown INR 1.3 (0.8-1.2) H 05/04/19 Unknown APTT 40.3 secs (24.9-33.3) H 05/04/19 Unknown Sodium 139 mmol/L (135-145) 05/05/19 05:22 Potassium 4.4 mmol/L (3.5-5.0) 05/05/19 05:22 Chloride 103 mmol/L (101-111) 05/05/19 05:22 Carbon Dioxide 30 mmol/L (21-32) 05/05/19 05:22 Anion Gap 6.0 (6-13) 05/05/19 05:22 BUN 20 mg/dL (6-20) 05/05/19 05:22 Creatinine 1.0 mg/dL (0.6-1.2) 05/05/19 05:22 Estimated GFR (MDRD) 80 (>89) L 05/05/19 05:22 Glucose 119 mg/dL (70-100) H 05/05/19 05:22 Calcium 8.4 mg/dL (8.5-10.3) L 05/05/19 05:22 Iron 47 ug/dL (45-182) 05/05/19 05:22 TIBC 291 ug/dL (250-450) 05/05/19 05:22 % Saturation 16 % (20-50) L 05/05/19 05:22 Transferrin 208 mg/dL (180-329) 05/05/19 05:22 Ferritin 140.7 ng/mL (23.9-336.2) 05/05/19 05:22 Total Bilirubin 0.3 mg/dL (0.2-1.0) 05/04/19 10:25 AST 13 IU/L (10-42) 05/04/19 10:25 ALT 13 IU/L (10-60) 05/04/19 10:25 Alkaline Phosphatase 39 IU/L (42-121) L 05/04/19 10:25 Lactate Dehydrogenase 81 IU/L (91-225) L 05/05/19 05:22 Total Protein 7.7 g/dL (6.7-8.2) 05/04/19 10:25 Albumin 3.6 g/dL (3.2-5.5) 05/04/19 10:25 Globulin 4.1 g/dL (2.1-4.2) 05/04/19 10:25 Albumin/Globulin Ratio 0.9 (1.0-2.2) L 05/04/19 10:25 Lipase 31 U/L (22-51) 05/04/19 10:25 Vitamin B12 255 pg/mL (180-914) 05/05/19 05:22 Urine Color YELLOW 05/04/19 14:45 Urine Clarity CLEAR (CLEAR) 05/04/19 14:45 Urine pH 5.0 PH (5.0-7.5) 05/04/19 14:45 Ur Specific [place] <=1.005 (1.002-1.030) 05/04/19 14:45 Urine Protein NEGATIVE mg/dL (NEGATIVE) 05/04/19 14:45 Urine Glucose (UA) NEGATIVE mg/dL (NEGATIVE) 05/04/19 14:45 Urine Ketones NEGATIVE mg/dL (NEGATIVE) 05/04/19 14:45 Urine Occult Blood NEGATIVE (NEGATIVE) 05/04/19 14:45 Urine Nitrite NEGATIVE (NEGATIVE) 05/04/19 14:45 Urine Bilirubin NEGATIVE (NEGATIVE) 05/04/19 14:45 Urine Urobilinogen 0.2 (NORMAL) E.U./dL (NORMAL) 05/04/19 14:45 Ur Leukocyte Esterase NEGATIVE (NEGATIVE) 05/04/19 14:45 Ur Microscopic Review NOT INDICATED 05/04/19 14:45 Urine Culture Comments NOT INDICATED 05/04/19 14:45 Blood Type A POSITIVE 05/04/19 10:25 Antibody Screen NEGATIVE 05/04/19 10:25 - Procedures Procedures: Procedures INSPECTION OF LOWER INTESTINAL TRACT, ENDO (06/18/17) TRANSFUSE NONAUT RED BLOOD CELLS IN PERIPH VEIN, PERC (06/18/17) Sepsis Event Note (H) - Evaluation Current Stage of Sepsis: Ruled out ABX Reporting Has patient been on IV antibiotics over the past 48 hours?: No
[2019-05-05 11:18] LABS: HGB - HEMOGLOBIN 8.9 g/dL (14.0-18.0)
[2019-05-05 11:34] VITALS: BP 110/72
--- NOTE | 2019-05-05 11:42 | Discharge Plan ---
Discharge Plan Problem Reviewed?: Yes Disposition: Home, Self Care Condition: Poor Prescriptions: Omeprazole 40 mg PO BID #30 capsule. Diet: Regular Activity Restrictions: Activity as Tolerated Shower Restrictions: No (fall precaution) Instruction Topics: Bleeding Gastrointestinal, Omeprazole tablets OTC Health Concerns: GI bleed Plan of Treatment: you are clinically resolving with no evidence of active/recurrent bleeding. Your HGB is going up. You are prescribed Omeprazole 40mg bid. Please avoid of NSAIDs, Alcohol. Advise you bed rest for a few days, and precaution of fall. Care Goals: stabilization and improvement of your medical conditions. Assessment: as the EGD assessment Additional Instructions or Follow Up instructions: You may followup your PCP in one weeks, followup out-pt in Dr. Kobi Alvares's office in 1-2 weeks, and repeat EGD in 2 months to document satisfactory healing of his gastric and duodenal ulcers. No Smoking: If you smoke, Please STOP! Call for help. Follow-up with: Gavino Raymundo MD [Primary Care Provider] -
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
[2019-05-05] MEDS: oxyCODONE 5 MG TABLET PO PRN (12:06)
[2019-05-05] MEDS ORDERED: LIDOCAINE-MPF 2% 5 ML VIAL IM ONE (12:13)
[2019-05-05] MEDS ORDERED: fentaNYL 100 MCG/2 ML VIAL IVP ONE (12:13)
[2019-05-05] MEDS ORDERED: MIDAZOLAM 2 MG/2 ML VIAL IVP ONE (12:13)
[2019-05-05] MEDS ORDERED: PANTOPRAZOLE 40 MG VIAL IVP ONE (12:13)
[2019-05-05] MEDS ORDERED: PROPOFOL 200 MG/20 ML VIAL IVP ONE (12:13)
== END 2019-05-05 12:14 | disposition home or self-care (01) ==
LOC: ED 10:05 → MS2 16:00
PROVIDERS: ADMIT Nurse Practitioner Gerontology; ATTEND Nurse Practitioner Gerontology
PROC: 0DB68ZX Excision of Stomach, Via Natural or Artificial Opening Endoscopic, Diagnostic (ICD-10-PCS; 2019-05-04)
PROC: 0W3P8ZZ Control Bleeding in Gastrointestinal Tract, Via Natural or Artificial Opening Endoscopic (ICD-10-PCS; principal; 2019-05-04 16:15)
DX: K26.9 Duodenal ulcer, unspecified as acute or chronic, without hemorrhage or perforation (principal); K25.9 Gastric ulcer, unspecified as acute or chronic, without hemorrhage or perforation; K29.90 Gastroduodenitis, unspecified, without bleeding; D64.9 Anemia, unspecified; F41.9 Anxiety disorder, unspecified; F32.9 Major depressive disorder, single episode, unspecified; I10 Essential (primary) hypertension; R10.9 Unspecified abdominal pain
CPT/HCPCS: 36415; 43239; 43255; 74177; 80048; 80053; 81003; 82607; 82728; 83540; 83615; 83690; 84466; 85014; 85018; 85025; 85044; 85610; 85730; 86850; 86900; 86901; 87081; 88305; 96361; 96374; 96375; 96376; 99285; A9270; G0378; J7120; Q9967; 81001; 82272; 87086

== ENCOUNTER 2023-02-22 09:13 | Emergency (ER) | payer MEDICARE, MEDICAID ==
[2023-02-22] MEDS ORDERED: SODIUM CHLORIDE 0.9% 1,000 ML IV STA (10:11)
[2023-02-22] MEDS ORDERED: ONDANSETRON 4 MG/2 ML VIAL IVP STA (10:14)
[2023-02-22] MEDS: fentaNYL 100 MCG/2 ML VIAL IVP PRN ×3 (10:32→13:05)
[2023-02-22 10:40] LABS: VBG BASE EXCESS 0.2 mmol/L (-2 - +2); VBG HCO3 25.6 mmol/L (23-28); VBG OXYGEN SATURATION 53.4 % (60-80); VBG PCO2 44.1 mmHg (41-51); VBG PH 7.382 (7.31-7.41); VBG PO2 27.3 mmHg (25-47)
[2023-02-22 10:40] LABS: BASOPHILS # (AUTO) 0.1 10^3/uL (0.0-0.1); BASOPHILS % (AUTO) 0.8 %; EOSINOPHILS # (AUTO) 0.1 10^3/uL (0.0-0.7); EOSINOPHILS % (AUTO) 1.3 %; HGB - HEMOGLOBIN 14.3 g/dL (14.0-18.0); LYMPHOCYTES # (AUTO) 1.2 10^3/uL (1.5-3.5); LYMPHOCYTES % (AUTO) 16.1 %; MEAN CORPUSCULAR HEMOGLOBIN 33.6 pg (27.0-31.0); MEAN CORPUSCULAR VOLUME 98.8 fL (80.0-94.0); MEAN PLATELET VOLUME 12.3 fL (7.4-11.4); MONOCYTES # (AUTO) 0.8 10^3/uL (0.0-1.0); MONOCYTES % (AUTO) 9.9 %; NEUTROPHILS # (AUTO) 5.5 10^3/uL (1.5-6.6); NEUTROPHILS % (AUTO) 71.6 %; PLT - PLATELET COUNT 99 10^3/uL (130-450); RED BLOOD COUNT 4.25 10^6/uL (4.70-6.10); RED CELL DISTRIBUTION WIDTH 12.4 % (12.0-15.0); WHITE BLOOD COUNT 7.7 x10^3/uL (4.8-10.8)
[2023-02-22 10:46] LABS: INR 1.8 (0.8-1.2); PT - PROTHROMBIN TIME 19.1 secs (9.9-12.6)
[2023-02-22] MEDS ORDERED: iohexoL-300 100 ML VIAL ONE (10:47)
[2023-02-22 10:53] LABS: ALBUMIN/GLOBULIN RATIO 0.7 (1.0-2.2); BILIRUBIN,TOTAL 2.4 mg/dL (0.2-1.0); CALCIUM 8.6 mg/dL (8.5-10.3); CREATININE 1.3 mg/dL (0.6-1.2); MAGNESIUM 1.8 mg/dL (1.7-2.8); POTASSIUM 3.6 mmol/L (3.5-5.0); TOTAL PROTEIN 7.5 g/dL (6.7-8.2)
--- NOTE | 2023-02-22 11:00 | ED Physician Documentation ---
History of Present Illness - Stated complaint Stated Complaint: SWOLLEN THROAT - Chief complaint Chief Complaint: Heent - Additonal information Additional information: Patient 52-year-old male with past medical significant for hypertension p resenting with throat swelling. Endorses 1 week history throat swelling getting progressively worse. Reports shaking chills but denies fever. Has had pain with opening his jaw and has been unable to drink fluids for the last 2 days. No recent dental procedures. No history of diabetes or immunocompromise. Review of Systems Constitutional: reports: Chills. denies: Fever Eyes: denies: Loss of vision Ears: denies: Loss of hearing Nose: denies: Rhinorrhea / runny nose Throat: reports: Sore throat, Other (Throat swelling). denies: Dental pain / toothache Cardiac: denies: Chest pain / pressure Respiratory: denies: Dyspnea GI: denies: Abdominal Pain : denies: Frequency PD PAST MEDICAL HISTORY - Past Medical History Cardiovascular: Hypertension Respiratory: None Neuro: None Endocrine/Autoimmune: None GI: Pancreatitis : None HEENT: None Psych: Depression, Anxiety Musculoskeletal: Chronic back pain Derm: None - Past Surgical History Past Surgical History: Yes General: Other - Present Medications Home Medications: Ambulatory Orders Medication Instructions Recorded Confirmed Amitriptyline [Elavil] 50 mg PO QPM 11/12/17 05/04/19 Hydrocodone/Acetaminophen 1 tab PO Q4H PRN 11/12/17 05/04/19 [Hydrocodone-Acetamin 7.5-325] Zolpidem [Ambien] 10 mg PO HS PRN 05/01/19 05/04/19 Omeprazole 40 mg PO BID #30 capsule. 05/05/19 - Allergies Allergies/Adverse Reactions: Allergies Allergy/AdvReac Type Severity Reaction Status Date / Time diphenhydramine Allergy Rash Verified 02/22/23 09:29 haloperidol [From Haldol] AdvReac Anxiety Verified 02/22/23 09:29 lorazepam [From Ativan] AdvReac Hallucinati Verified 02/22/23 09:29 ons - Social History Does the pt smoke?: No Smoking Status: Former smoker Does the pt drink ETOH?: No Does the pt have substance abuse?: No - Immunizations Immunizations are current?: Yes - POLST Patient has POLST: No PD ED PE NORMAL - Vitals Vital signs reviewed: Yes (Afebrile) - General General: Alert and oriented X 3, No acute distress, Well developed/nourished - HEENT HEENT: Atraumatic, PERRL, EOMI, Other (Positive trismus, dry mucous membranes) - Neck Neck: Other (Submandibular swelling.) - Cardiac Cardiac: RRR - Respiratory Respiratory: No respiratory distress - Abdomen Abdomen: Normal bowel sounds, Non tender - Male Male : Deferred - Back Back: No CVA TTP - Derm Derm: Normal color - Extremities Extremities: No deformity - Neuro Neuro: Alert and oriented X 3, 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 Relevant findings are: Sinus rhythm with rate 75 bpm. Left axis deviation. Normal [place], QRS, QTc intervals. No ST segment elevations. Nonspecific ST and T wave abnormalities given here in the early precordial leads. - Labs Labs: Laboratory Tests 02/22/23 02/22/23 02/22/23 10:25 10:25 10:25 WBC 7.7 RBC 4.25 L Hgb 14.3 Hct 42.0 MCV 98.8 H MCH 33.6 H MCHC 34.0 RDW 12.4 Plt Count 99 L MPV 12.3 H Neut # (Auto) 5.5 Lymph # (Auto) 1.2 L [place] # (Auto) 0.8 Eos # (Auto) 0.1 Baso # (Auto) 0.1 Absolute Nucleated RBC 0.00 Nucleated RBC % 0.0 PT 19.1 H INR 1.8 H VBG pH VBG pCO2 VBG pO2 VBG HCO3 VBG Total CO2 VBG O2 Saturation VBG Base Excess Sodium 136 Potassium 3.6 Chloride 104 Carbon Dioxide 26 Anion Gap 6.0 BUN 12 Creatinine 1.3 H Estimated GFR (MDRD) 58 L Glucose 127 H Lactic Acid Calcium 8.6 Magnesium 1.8 Total Bilirubin 2.4 H AST 30 ALT 16 Alkaline Phosphatase 76 Total Protein 7.5 Albumin 3.0 L Globulin 4.5 H Albumin/Globulin Ratio 0.7 L Lipase 30 SARS-CoV-2 (PCR) 02/22/23 02/22/23 02/22/23 10:27 10:27 10:37 WBC RBC Hgb Hct MCV MCH MCHC RDW Plt Count MPV Neut # (Auto) Lymph # (Auto) [place] # (Auto) Eos # (Auto) Baso # (Auto) Absolute Nucleated RBC Nucleated RBC % PT INR VBG pH 7.382 VBG pCO2 44.1 VBG pO2 27.3 VBG HCO3 25.6 VBG Total CO2 27.0 VBG O2 Saturation 53.4 L VBG Base Excess 0.2 Sodium Potassium Chloride Carbon Dioxide Anion Gap BUN Creatinine Estimated GFR (MDRD) Glucose Lactic Acid 1.1 Calcium Magnesium Total Bilirubin AST ALT Alkaline Phosphatase Total Protein Albumin Globulin Albumin/Globulin Ratio Lipase SARS-CoV-2 (PCR) NOT DETECTED PD Medical Decision Making - ED course Complexity details: reviewed results, re-evaluated patient, considered differential, d/w patient, d/w senior sustainability consultant ED course: Patient 52-year-old male with past medical significant for hypertension presenting to the emergency department with throat swelling x1 week worse for the last few days. Physical exam highly concerning for tense swelling in the submandibular space as well as trismus and muffled voice. Patient otherwise protecting his airway however immediately placed on cardiac telemetry and continuous pulse oximetry. IV access was obtained. Comprehensive labs did not demonstrate any significant leukocytosis however there was a mild increase in renal function at creatinine 1.3 likely Representing an early acute kidney injury. CT of the soft tissue of the neck however did demonstrate significant cellulitis as well as abscess.Consistent with a Ludewig's angina. CT chest did not demon strate any mediastinal spread. Patient gave 3 mg Unasyn. Consulted with ENT at [facility], Dr. Perales. In consultation with Dr. Toan العراقي will give 20 mg high-dose Decadron. Patient be transferred from our facility to [facility] for further evaluation and treatment. Departure - Departure Disposition: 02 Transfer Acute Care Hosp Clinical Impression: Cass mcfarlane
--- NOTE | 2023-02-22 12:03 | CT Report ---
PROCEDURE: SOFT TISSUE NECK W INDICATIONS: Concern Rajesh Angina CONTRAST: 100ml omni 300 TECHNIQUE: After the administration of intravenous contrast, 3.0 mm axial sections acquired from the sella to th e aortic arch. Additional oblique axial 3.0 mm sections acquired through the pharynx. 3 mm thick co june reformats were generated. For radiation dose reduction, the following was used: automated exp osure control, adjustment of mA and/or kV according to patient size. COMPARISON: None. FINDINGS: Image quality: Excellent. Lymph nodes: Enlarged lymph nodes are seen scattered throughout bilateral neck soft tissue. Vessels: Visualized vasculature appears patent. Neck spaces: There is significant soft tissue swelling and edema involving submandibular space with mass effect on the base of the tongue. Significant left worse than right narrowing of the oropharynge al airway is seen. Ill-defined lobulated peripherally enhancing hypodense collection is seen within s ubmandibular soft tissue and measures in aggregate 3.3 x 6.3 x 5.1 cm in largest transverse, AP and c raniocaudal dimensions series 2 image 90 and series 5 image 61. Internal enhancing septations are als o noted. Finding is consistent with multiloculated abscess collection. The nasopharynx, and pharynx d emonstrate no mucosal lesions. The vocal cords, false vocal cords, pyriform sinuses, epiglottis, haritha lecula, and tongue base all appear normal. Extramucosal spaces appear unremarkable. Glands: The parotid and submandibular glands appear normal. The thyroid is normal in size and there are no incidental findings. Miscellaneous: Visualized brain and orbits appear normal. Lung apices appear clear. Superficial so ft tissues appear normal. Bones: There is subtle erosive changes involving inferior cortex of mandible with heterogeneous densi ty concerning for osteomyelitis involving mandible. Visualized sinuses and mastoids appear unremarkab le. IMPRESSION: 1. Marked cellulitis involving submandibular soft tissues/floor of mouth with mass effect on the base of tongue and moderate to severe left worst in right oropharyngeal airway narrowing. Lobulated and s eptated abscess collection involving submandibular soft tissue and measures up to 3.3 x 6.3 x 5.1 cm in size. 2. Enlarged bilateral neck soft tissue lymph nodes consistent with reactive inflammatory nodes. 3. Heterogeneous density within the mandible with subtle cortical erosion concerning for osteomyeliti s. CLINICAL RECOMMENDATION STATEMENTS: In patients <35 years with an ITN detected on CT, MRI, or extrathyroidal ultrasound, the Committee re commends further evaluation with dedicated thyroid ultrasound if the nodule is "e1 cm and has no susp icious imaging features, and if the patient has normal life expectancy. In patients "e35 years with an ITN detected on CT, MRI, or extrathyroidal ultrasound, the Committee r ecommends further evaluation with dedicated thyroid ultrasound if the nodule is "e1.5 cm and has no s uspicious imaging features, and if the patient has normal life expectancy. (ACR, 2014) Reviewed by: Braydon Wen MD on 02/22/2023 12:01 PM PDT Approved by: Braydon Wen MD on 02/22/2023 12:01 PM PDT Station ID: [id number]
--- NOTE | 2023-02-22 12:10 | CT Report ---
PROCEDURE: CHEST W INDICATIONS: Evaluation for medastinal mass/infection CONTRAST: 100ml omni 300 TECHNIQUE: After the administration of intravenous contrast, 1 mm axial images were acquired from the pulmonary apices through the posterior costophrenic angles. Axial 5 mm soft tissue kernel reconstructions were performed as well as 8 mm axial MIP and coronal and sagittal 5 mm reformations. For radiation dose reduction, the following was used: automated exposure control, adjustment of mA and/or kV according to patient size. COMPARISON: None. FINDINGS: Image quality: Excellent. Lungs and pleura: No consolidation. No pleural effusions. No pneumothorax. No suspicious pulmonary n odules which require follow up. Mild dependent atelectasis are seen in posterior aspect of bilateral lung douglas. Mediastinum: Heart size is normal. No pericardial effusion. No large vessel abnormality. No mediastin al adenopathy by size criteria. Chest wall and lower neck: Thyroid is unremarkable. No axillary or supraclavicular adenopathy by size . Bones: No aggressive osseous abnormality. Upper Abdomen: Hepatosplenomegaly is seen in visualized upper abdomen. Gallbladder is distended.. IMPRESSION: 1. Mild dependent atelectasis in posterior aspect of bilateral lung douglas. Bilateral lungs are other gray clear. 2. No mediastinal or hilar lymphadenopathy by size criteria. 3. Hepatosplenomegaly in visualized upper abdomen. Reviewed by: Braydon Wen MD on 02/22/2023 12:09 PM PDT Approved by: Braydon Wen MD on 02/22/2023 12:09 PM PDT Station ID: [id number]
[2023-02-22] MEDS ORDERED: AMPICILLIN/SULBACTAM 3 GM in SODIUM CHLORIDE 0.9% MINIBAG 100 ML IV STA (12:30)
[2023-02-22 14:04] VITALS: BP 157/94
[2023-02-22] MEDS ORDERED: DEXAMETHASONE 10 MG/ML VIAL IV STA (14:51)
[2023-02-22] MEDS ORDERED: fentaNYL 100 MCG/2 ML VIAL IVP PRN (14:52)
[2023-02-22] MEDS ORDERED: iohexoL-300 100 ML VIAL IVP ONE (15:10)
== END 2023-02-22 15:45 | disposition short-term general hospital (02) ==
LOC: ED 09:13
DX: K12.2 Cellulitis and abscess of mouth (principal); I10 Essential (primary) hypertension; Z87.891 Personal history of nicotine dependence; Z20.822 Contact with and (suspected) exposure to COVID-19
CPT/HCPCS: 36415; 70491; 71260; 80053; 82803; 83605; 83690; 83735; 85025; 85610; 87040; 87635; 93005; 96365; 96375; 96376; 99285; Q9967